=== PATIENT | male | born 1945 | race Caucasian/White ===

== ENCOUNTER 2019-12-05 15:01 | Outpatient (CLI) | payer MEDICARE, SELFPAY ==
--- NOTE | ~2019-12-05 | XR_ITS ---
EXAMINATION: XR chest 2V DATE: 12/05/2019 15:24 INDICATION: Cough. Hypertension. Asbestos exposure. TECHNIQUE: PA and lateral views of the chest were obtained. COMPARISON: Chest radiograph dated 05/24/[address] dated 04/01/2016 FINDINGS: Hyperexpansion of the lungs with increased lucency and architectural distortion of the upper lung zon es consistent with moderate emphysema better appreciated on prior CT. Opacities at the anterolateral left lower lung zone with blunting at the left costophrenic angle which appears to correspond to pleu ral parenchymal scarring on prior CT. No other airspace opacities, pulmonary edema, pleural effusion or pneumothorax. The cardiomediastinal silhouette is normal. Left paracardial fat pad. Median sternot alicja wires and mediastinal surgical clips are seen, likely from prior coronary artery bypass grafting. Aortic valve repair. Retained epicardial pacemaker leads. Mild thoracic spondylosis. IMPRESSION: 1. Opacities at the anterolateral left lower lung zone which appear to correspond to chronic pleural parenchymal scarring. Differential would include less likely pneumonia. 2. Emphysema. Reviewed, dictated and finalized at location B. IMPRESSION: 1. Opacities at the anterolateral left lower lung zone which appear to correspo nd to chronic pleural parenchymal scarring. Differential would include less lik dequan pneumonia. 2. Emphysema.
== END 2019-12-05 15:02 | disposition home or self-care (01) ==
PROVIDERS: PCP Internal Medicine; Visit Provider Internal Medicine
DX: R05 Cough (principal); Z77.090 Contact with and (suspected) exposure to asbestos; J43.9 Emphysema, unspecified
CPT/HCPCS: 71046

== ENCOUNTER 2020-10-23 12:27 | Outpatient (CLI) | payer MEDICARE, SELFPAY ==
--- NOTE | 2020-10-23 14:26 | WPDPFTINT ---
PFT Procedure Performed PFT Procedure Performed Plethysmography (Lung Vol) Diffusing Cap (DLCO) Flow Vol Loop Spirometry w/o Bronchodil PFT Interpretation This is a pulmonary function test with spirometry, plethysmography and diffusing capacity. The test was performed and results interpreted in accordance with the 2019 and 2005 ATS/ERS Task Force guidelines respectively using the Global Lung Function Initiative-2012 reference equations. Patient demonstrated good effort and cooperation. Reproducibility criteria were met. The quality of the spirometry maneuver was Grade A. Findings: Spirometry: There is decreased maximal expiratory airflow at all lung volumes with concave expiratory flow tracing. The contour the inspiratory flow tracing is normal. The FVC is 3.99 L, 85% predicted. The FEV1 is 1.31 L, 38% predicted. The FEV1: FVC ratio is 33%. Plethysmography: The total lung capacity is 8.62 L, 110% predicted. The functional residual capacity is 6.62 L, 156% predicted. The residual volume is 4.63 L, 168% predicted. Diffusing capacity: The absolute diffusion capacity is 11.9, 44% predicted. The diffusing capacity corrected for alveolar volume is 2.27, 63% predicted. Impression: There is a severe obstructive abnormality. The increase in residual volume is consistent with air trapping from an obstructive abnormality. Hyperinflation is present is demonstrated by the increase in functional residual capacity and is consistent with an obstructive abnormality. The absolute diffusing capacity is moderately decreased and remains mildly decreased when corrected for alveolar volume. There are no prior studies for comparison
== END 2020-10-23 12:28 | disposition home or self-care (01) ==
PROVIDERS: PCP Internal Medicine; Visit Provider Internal Medicine
DX: J44.9 Chronic obstructive pulmonary disease, unspecified (principal); R94.2 Abnormal results of pulmonary function studies; R91.8 Other nonspecific abnormal finding of lung field
CPT/HCPCS: 94375; 94726; 94729

== ENCOUNTER 2021-06-24 10:32 | Outpatient (CLI) | payer MEDICARE, SELFPAY ==
[2021-06-24 11:21] LABS: Basophils Absolute Auto 0.1 K/mm3 (0.0-0.1); Eosinophils Absolute Auto 0.2 K/mm3 (0-0.3); Eosinophils Percent Auto 1.9 % (0-4.4); Hematocrit 39.7 % (42.0-52.0); Hemoglobin 12.7 g/dL (14.0-18.0); Immature Granulocyte Absolute 0.13 K/mm3 (0.00-0.031); Immature Granulocyte Percent A 1.4 % (0-0.5); Lymphocytes Absolute Auto 1.31 K/mm3 (0.9-3.2); Mean Corpuscular Hemoglobin 26.2 pg (26-34); Mean Corpuscular Volume 81.9 fl (80-100); Mean Platelet Volume 9.6 fl (7.4-10.4); Monocytes Absolute Auto 0.7 K/mm3 (0.1-0.6); Monocytes Percent Auto 7.6 % (2.6-8.5); Neutrophils Absolute Auto 6.9 K/mm3 (1.3-6.7); Neutrophils Percent Auto 74.1 % (45.5-73.1); Platelet Count Result 343 k/mm3 (150-375); Red Blood Count 4.85 M/mm3 (4.6-6.20); Red Cell Distribution Width 15.9 % (11.5-14.5); White Blood Count 9.3 K/mm3 (4.5-10.0)
[2021-06-24 11:24] LABS: Alanine Aminotransferase 18 U/L (4-50); Albumin Level 3.8 g/dL (3.5-5.1); Alkaline Phosphatase 111 U/L (38-126); Anion Gap 6 mmol/L (8-16); Aspartate Amino Transferase 21 U/L (17-59); Bilirubin,Total 0.5 mg/dL (0.2-1.3); Blood Urea Nitrogen 21 mg/dL (9-20); Calcium 8.7 mg/dL (8.4-10.2); Carbon Dioxide 27 mmol/L (22-30); Chloride 108 mmol/L (98-107); Cholesterol 94 mg/dL (0-200); Estimated Glomerular Filt Rate > 60; Glucose 66 mg/dL (65-110); HDL Direct 42 mg/dL; Potassium 4.7 mmol/L (3.4-5.0); Sodium 141 mmol/L (137-145); Triglycerides 41 mg/dL (<150)
[2021-06-24 11:25] LABS: Hemoglobin A1C 6.3 % (<5.7)
[2021-06-24 11:36] LABS: LDL Cholesterol Direct 32 mg/dL
[2021-06-24 11:56] LABS: Iron 58 ug/dL (49-181)
[2021-06-24 12:00] LABS: Vitamin D 25 Hydroxy 56.3 ng/mL
[2021-06-24 12:02] LABS: Percent Iron Saturation 18 % (20-50)
[2021-06-24 12:07] LABS: Creatinine Urine 119.7 mg/dL
[2021-06-24 12:09] LABS: Free T4 Free Thyroxine 1.26 ng/mL (0.78-2.19)
[2021-06-24 12:11] LABS: MALB Creatinine Ratio 12.4 mg/g (0-30); Microalbumin Urine Random 14.9 mg/L (0-16.7)
== END 2021-06-24 10:33 | disposition home or self-care (01) ==
LOC: ANHLAB 10:38
PROVIDERS: PCP Internal Medicine; Visit Provider Internal Medicine
DX: I10 Essential (primary) hypertension (principal); D64.9 Anemia, unspecified; E11.9 Type 2 diabetes mellitus without complications; Z79.4 Long term (current) use of insulin; E78.2 Mixed hyperlipidemia; Z79.899 Other long term (current) drug therapy; E55.9 Vitamin D deficiency, unspecified
CPT/HCPCS: 36415; 80053; 80061; 82043; 82306; 82728; 83036; 83540; 83550; 84439; 84443; 85025

== ENCOUNTER 2022-06-02 13:46 | Outpatient (CLI) | payer MEDICARE, SELFPAY ==
--- NOTE | ~2022-06-02 | XR_ITS ---
XR chest 2V 06/02/2022 14:04 Indication: Cough Procedure: 2 view chest Comparison: Comparison to multiple prior studies sequentially, with oldest reviewed study dated 04/11. Findings: Status post median sternotomy for CABG. Heart size normal. There is a prosthetic heart valv e. There is patchy consolidation of the left mid and lower lung, suspicious for pneumonia. No signifi cant effusion or pneumothorax. No acute osseous abnormality. Impression: 1: Patchy infiltrates of the left mid and lower lung, suspicious for pneumonia. Reviewed, dictated and finalized at location L. Impression: 1: Patchy infiltrates of the left mid and lower lung, suspicious for pneumonia.
[2022-06-02 15:17] LABS: Influenza A QL RT-PCR Negative (Negative); Influenza B QL RT-PCR Negative (Negative); SARS-CoV-2 RNA PCR Negative
== END 2022-06-02 13:47 | disposition home or self-care (01) ==
PROVIDERS: PCP Internal Medicine; Visit Provider Internal Medicine
DX: R05.9 Cough, unspecified (principal); R91.8 Other nonspecific abnormal finding of lung field; Z20.822 Contact with and (suspected) exposure to COVID-19
CPT/HCPCS: 71046; 87636

== ENCOUNTER 2022-06-06 13:25 | Outpatient (CLI) | payer MEDICARE, SELFPAY ==
--- NOTE | ~2022-06-06 | XR_ITS ---
XR chest 2V 06/06/2022 13:40 Indication: Cough. Hypertension. CVA. Procedure: PA and lateral views of the chest Comparison: Comparison to multiple prior studies sequentially, with oldest reviewed study dated 11/09. Findings: Status post median sternotomy for CABG. Heart size normal. The lungs are hyperinflated whic h is consistent with, but not diagnostic of chronic obstructive pulmonary disease. Left basilar infil trates which may represent atelectasis and/or pneumonia. The lungs are hyperinflated which is consist ent with, but not diagnostic of chronic obstructive pulmonary disease. There are epicardial pacing le ads. Impression: 1: Unchanged left basilar infiltrates which may represent atelectasis and/or pneumonia. Reviewed, dictated and finalized at location A. Impression: 1: Unchanged left basilar infiltrates which may represent atelectasis and/or pn eumonia.
== END 2022-06-06 13:26 | disposition home or self-care (01) ==
PROVIDERS: PCP Internal Medicine; Visit Provider Internal Medicine
DX: R05.9 Cough, unspecified (principal); J18.9 Pneumonia, unspecified organism; R91.8 Other nonspecific abnormal finding of lung field
CPT/HCPCS: 71046

== ENCOUNTER 2023-01-10 11:18 | Outpatient (CLI) | payer MEDICARE, SELFPAY ==
--- NOTE | ~2023-01-10 | XR_ITS ---
EXAMINATION: XR chest 2V DATE: 01/10/2023 11:44 INDICATION: Acute upper respiratory infection. Cough. TECHNIQUE: Frontal and lateral views of the chest were obtained. COMPARISON: Chest 2 views 06/06/2022, chest CT 04/01/2016 FINDINGS: The lungs are hyperexpanded, consistent with emphysema. There is mild scarring at the lung apices. There is mild scarring in left lower lung zone. No pleural effusion or pneumothorax. The hear t size is normal. There are changes of aortic valve replacement and coronary artery bypass grafting. IMPRESSION: 1. Emphysema. 2. Stable mild scarring at the lung apices and in the left lower lung zone. Reviewed, dictated and finalized at location E. [employer]
[2023-01-10 12:01] LABS: Basophils Absolute Auto 0.1 K/mm3 (0.0-0.1); Basophils Percent Auto 0.9 % (0.2-1.2); Eosinophils Absolute Auto 0.4 K/mm3 (0-0.3); Eosinophils Percent Auto 3.2 % (0-4.4); Hematocrit 43.9 % (42.0-52.0); Hemoglobin 13.3 g/dL (14.0-18.0); Immature Granulocyte Absolute 0.03 K/mm3 (0.00-0.031); Immature Granulocyte Percent A 0.3 % (0-0.5); Lymphocytes Absolute Auto 1.23 K/mm3 (0.9-3.2); Lymphocytes Percent Auto 10.8 % (18.3-44.2); Mean Corpuscular HGB Conc 30.3 g/dl (32-36); Mean Corpuscular Hemoglobin 25.4 pg (26-34); Mean Corpuscular Volume 83.9 fl (80-100); Mean Platelet Volume 9.4 fl (7.4-10.4); Monocytes Absolute Auto 0.8 K/mm3 (0.1-0.6); Monocytes Percent Auto 6.9 % (2.6-8.5); Neutrophils Absolute Auto 8.9 K/mm3 (1.3-6.7); Neutrophils Percent Auto 77.9 % (45.5-73.1); Platelet Count Result 356 k/mm3 (150-375); Red Blood Count 5.23 M/mm3 (4.6-6.20); Red Cell Distribution Width 15.9 % (11.5-14.5); White Blood Count 11.4 K/mm3 (4.5-10.0)
[2023-01-10 12:37] LABS: SARS-CoV-2 RNA PCR Negative (Negative)
== END 2023-01-10 11:19 | disposition home or self-care (01) ==
PROVIDERS: PCP Internal Medicine; Visit Provider Internal Medicine
DX: J06.9 Acute upper respiratory infection, unspecified (principal); R68.89 Other general symptoms and signs; R53.83 Other fatigue; R06.2 Wheezing; R05.9 Cough, unspecified; J43.9 Emphysema, unspecified; R91.8 Other nonspecific abnormal finding of lung field
CPT/HCPCS: 36415; 71046; 85025; 87635

== ENCOUNTER 2023-07-19 14:49 | Outpatient (CLI) | payer MEDICARE, SELFPAY ==
--- NOTE | ~2023-07-19 | US_ITS ---
EXAMINATION: US carotid duplex BI DATE: 07/19/2023 15:35 INDICATION: Vascular symptoms. TECHNIQUE: Grayscale, color Doppler, and pulsed Doppler images of the cervical carotid arteries were obtained. The degree of vessel stenosis is placed in one of the following categories: normal, <50%, 5 0-69%, >=70% but less than near-occlusion, near-occlusion, or total occlusion. Note that percent sten osis relative to normal distal artery lumen diameter is indirectly measured from velocity measurement s as described by Shaheen, et al. Radiology 2003; 229:340-346. Notes: Normal: Peak systolic velocity <125 centimeters/sec and no plaque <50%. Peak systolic velocity <125 ( EDV <40; ICA/CCA PSV ratio <2.0; used these factors only a tandem lesions or low cardiac output or co ntralateral disease) 50-69 %: PSV 125-230 (EDV 40-100; ratio 2-4) >= 70% but less than near occlusion: PSV greater than 230 (EDV > 100; ratio> 4.0) Near Occlusion: PSV that is variable; markedly narrowed lumen Occlusion: Absent flow on color/spectral Doppler and no lumen on casillas scale. COMPARISON: None. FINDINGS: RIGHT: The right common carotid artery (CCA) peak systolic velocity (PSV) is 57 cm/s. The right internal car otid artery (ICA) PSV is 108 cm/s. The right ICA end-diastolic velocity (EDV) is 22 cm/s. The right I CA/CCA PSV ratio is 1.9 external carotid artery (ECA) PSV is 77 cm/s. There is antegrade flow in the right vertebral artery. LEFT: The left CCA PSV is 82 cm/s. The left ICA PSV is 71 cm/s. The left ICA EDV is 18 cm/s. The left ICA/C CA PSV ratio is 0.9. The ECA PSV is 92 cm/s. There is antegrade flow in the left vertebral artery. IMPRESSION: 1. Less than 50% stenosis in the right internal carotid artery by sonographic criteria. 2. Less than 50% stenosis in the left internal carotid artery by sonographic criteria. Reviewed, dictated and finalized at location B. IMPRESSION: 1. Less than 50% stenosis in the right internal carotid artery by sonographic gris sullivan. 2. Less than 50% stenosis in the left internal carotid artery by sonographic nilay garcia.
== END 2023-07-19 14:50 | disposition home or self-care (01) ==
LOC: ANHIMG 14:54
PROVIDERS: PCP Internal Medicine; Visit Provider Internal Medicine
DX: I65.23 Occlusion and stenosis of bilateral carotid arteries (principal); R09.89 Other specified symptoms and signs involving the circulatory and respiratory systems
CPT/HCPCS: 93880

== ENCOUNTER 2024-08-08 01:25 | Day surgery (SDC) | payer MEDICARE, SELFPAY ==
[2024-08-02 14:30] VITALS: BMI 20.5
--- NOTE | 2024-08-05 11:01 | PC.NURSE ---
LATE ENTRY 08/02/2024- Spoke with daughter Carol a couple times today, she reviewed his health history and asked me to call pt to confirm his med. list. When calling pt about medlist he seemed confused stated (he had been napping)about what I was asking and stated to talk to his daughter. I called him again a little later as he was more clear about what meds he takes but did not want to review the list. We did discuss that he would need to hold his Eliquis starting on the and that if he is on iron (is on medlist from DR. ROBERTS office) he would need to not take it anymore. I called daughter Carol and let her know of the conversation and she will make sure stops his Eliquis and Iron if he is taking it. I emailed her his instructions for prep as he stated he did not have them. She states she will make sure he has what he needs.
[2024-08-08 10:08] VITALS: BP 110/61; PULSE 71; RESP 16; TEMP 36.6; O2SAT 98; BMI 19.8
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
[2024-08-08 10:41] LABS: Glucose Point of Care 81 mg/dl (65-105)
[2024-08-08] MEDS: LACTATED RINGERS 1,000 ML 150 ML IV CONT (10:43)
[2024-08-08] MEDS: AMPICILLIN 2 GM/NS 100 ML 2 GM/100 ML BAG IVPB (10:45)
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
[2024-08-08] MEDS: BENZOCAINE (*SP) 60 ML SPRAY CAN (HURRICAINE) 1 SPRAY MUCOUS MEM (11:04)
--- NOTE | 2024-08-08 11:08 | S_PTH ---
PATIENT: Omega Rao Jr. LOC: [facility]#:[id number] AGE/SX: 78/M ROOM: RE08/08/[address]: Martin Plaza MD : 1945 BED: DIS: 08/08/2024 SPEC #: [id number] RECD: 08/08/24 13:00 STATUS: ALDA CANCINO #: [id number] JOSELO: 08/08/24 11:[address]: Martin Plaza DEPT: [facility] Surgical RECD BY: Portia Phillips ENTERED: 08/08/24 13:00 SP TYPE: Surgical OTHR DR: Tone Caicedo MD Tissues: A - Small Bowel Bx B - Gastric Biopsy C - Colon Biopsy D - Colon Polypectomy E - Colon Polypectomy Procedures: Hematoxylin and Eosin Stain Gross and Microscopic Level 4
--- NOTE | 2024-08-08 11:12 | SUR.OPER ---
EGD: ended 1107, COLON: started 1111
[2024-08-08 11:33] VITALS: BP 92/44; PULSE 56; RESP 21; O2SAT 100
[2024-08-08] MEDS: GENTAMICIN 80MG/SOD CHL 50 ML 80 MG/50 ML BAG 100 MG IVPB (11:37)
[2024-08-08 11:43] VITALS: BP 134/42; PULSE 60; RESP 20; O2SAT 100
[2024-08-08 11:53] VITALS: BP 155/54; PULSE 60; RESP 17; O2SAT 100
--- NOTE | 2024-08-08 12:23 | SUR.PHASEII ---
Initial glucose in recovery was 64. Patient given apple juice. Recheck 10 minutes after was 61. Patient given an additional apple juice and ko crackers. Repeat glucose 84. Patient asymptomatic.
[2024-08-08 14:16] LABS: Glucose Point of Care 83 mg/dl (65-105)
[2024-08-08 14:16] LABS: Glucose Point of Care 65 mg/dl (65-105)
[2024-08-08 14:16] LABS: Glucose Point of Care 62 mg/dl (65-105)
[2024-08-08 14:16] LABS: Glucose Point of Care 64 mg/dl (65-105)
== END 2024-08-08 12:25 | disposition home or self-care (01) ==
PROVIDERS: PCP Internal Medicine; Referring Provider Nurse Practitioner; Visit Provider Internal Medicine Gastroenterology
PROC: 0DJ08ZZ Inspection of Upper Intestinal Tract, Via Natural or Artificial Opening Endoscopic (ICD-10-PCS; CPT 45378; principal; 2024-08-08 11:30)
DX: R19.7 Diarrhea, unspecified (principal); D64.9 Anemia, unspecified; D12.2 Benign neoplasm of ascending colon; D12.3 Benign neoplasm of transverse colon; K57.30 Diverticulosis of large intestine without perforation or abscess without bleeding; K64.8 Other hemorrhoids; K44.9 Diaphragmatic hernia without obstruction or gangrene; K29.70 Gastritis, unspecified, without bleeding; K57.10 Diverticulosis of small intestine without perforation or abscess without bleeding; Z80.0 Family history of malignant neoplasm of digestive organs; F12.90 Cannabis use, unspecified, uncomplicated
CPT/HCPCS: 45380; 45385; 43239; 82948; 88305; J0290; J1580; J2003; J2371; J2704; J7120

== ENCOUNTER 2024-11-14 07:43 | Outpatient (CLI) | payer MEDICARE, SELFPAY ==
--- OUTSIDE RECORDS SUMMARY | 2024-11-14 07:46 | XMS_ITS | Encounter Summary ---
Author Organization [facility] Address [address] [place] [address] Phone Care Team Providers Care Topper Press Operator Name Role Phone Tone Caicedo MD Primary Care Provider [phone] Unknown, Notinfile Primary Care Provider Unavail able Tone Caicedo MD Primary Care Provider [phone] Tone Caicedo MD Unavailable [phone] Encounter Details Date Type Department Care Team (Latest Contact Info) Description 06/24/2021 Orders Only [facility] Scanning, Provider Social History Tobacco Use Types Packs/Day Years Used Date Smoking Tobacco: Former Cigarettes 2014 Smokeless Tobacco: Never Alcohol Use Standard Drinks/Week Comments No 0 (1 standard drink = 0.6 oz pur e alcohol) AUDIT-C Answer Date Recorded Q1: How often do you have a drink containing alc ohol? 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 SET UP Gender Identity Not on file Sexual Orientation Not on file documented as of this encounter Plan of Treatment Not on file documented as of this encounter Procedures Procedure Name Priority Date/Time Associated Diagnosis Comments SCAN - LABS 06/24/2021 documented in this encounter Results * SCAN - LABS (06/24/2021) us Provider Scanning Final Result documented in this encounter Visit Diagnoses Not on filedocumented in this encounter Additional Health Concerns Infection Onset Date Last Indicated Resolved Time COVID: Suspected 02/17/2024 02/17/2024 02/17/2024 12:52 PM MACHINIST SET UP COVID: Suspected 02/21/2024 02/21/2024 02/21/2024 1:26 PM MACHINIST SET UP C. difficile suspected 02/22/2024 02/22/202402/21 2:37 PM MACHINIST SET UP COVID: Suspected 10/26/2024 10/26/2024 10/26/2024 3:26 PM CDT documented as of this encounter Care Teams Topper Press Operator Relationship Specialty Start Date End Date Tone Caicedo MD [address] [place] [address] PCP - General 05/04/16 02/18/24 Unknown, Notinfile PCP - General 02/19/24 02/21/24 Tone Caicedo MD [address] [place] [address] PCP - General Internal Medicine 02/22/24 Tone Caicedo MD [address] [place] [address] 02/19/24 documented as of this encounter
--- OUTSIDE RECORDS SUMMARY | 2024-11-14 07:47 | XMS_ITS | Encounter Summary ---
Author Organization [facility] Address [address] [facility] [address] [place] [address] Phone Care Team Providers Care Metal Furnace Operator Name Role Phone Tone Caicedo MD Primary Care Provider [phone] Unknown, Notinfile Primary Care Provider Unavail able Tone Caicedo MD Primary Care Provider [phone] Tone Caicedo MD Unavailable [phone] Star Tam [facility] Unavailable Encounter Details Date Type Department Care Team (Late st Contact Info) Description 08/28/2017 Telephone [facility] Cardiology [address] [facility] Advanced [facility] 8th [place] [address] [place] [address] Morgan Busby MD [address] [facility] [address] [place] [address] Social History Tobacco Use Types Packs/Day Years Used Date Smoking Tobacco: Former Smokeless Tobacco: Never Alcohol Use Standard Drinks/Week Comments No 0 (1 standard drink = 0.6 oz pur e alcohol) Sex and Gender Information Value Date Recorded Sex Assigned at Not on file 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 difficile Comment:Germ watcher auto flagging. Specimen: STOOL Site: No diarrhea per pt RN. 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 difficile suspected 02/22/2024 02/22/202402/21 2:37 PM GREEN MEAT GRADER COVID: Suspected 10/26/2024 10/26/2024 10/26/2024 3:26 PM CDT documented as of this encounter Care Teams Metal Furnace Operator Relationship Specialty Start Date End Date Tone Caicedo MD [address] [place] [address] PCP - General 05/04/16 02/18/24 Unknown, Notinfile PCP - General 02/19/24 02/21/24 Tone Caicedo MD [address] [place] [address] PCP - General Internal Medicine 02/22/24 Tone Caicedo MD [address] [place] [address] 02/19/24 Star Tam, [facility] Outpatient Project Accountant 02/26/18 04/30/18 documented as of this encounter
--- OUTSIDE RECORDS SUMMARY | 2024-11-14 07:47 | XMS_ITS | Encounter Summary ---
Author Organization [facility] Address [address] [place] [address] Phone Care Team Providers Care Name Plate Stamper Name Role Phone Tone Caicedo MD Primary Care Provider [phone] Unknown, Notinfile Primary Care Provider Unavail able Tone Caicedo MD Primary Care Provider [phone] Tone Caicedo MD Unavailable [phone] Star Tam [facility] Unavailable Encounter Details Date Type Department Care Team (Latest Contact Info) Description 03/22/2017 Orders Only [facility] CONVERSION Scanning, Provider Social History Tobacco Use Types Packs/Day Years Used Date Smoking Tobacco: Never Assessed Alcohol Use Standard Drinks/Week Comments No 0 (1 standard drink = 0.6 oz pur e alcohol) Sex and Gender Information Value Date Recorded Sex Assigned at Not on file 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 Gender Identity Not on file Sexual Orientation Not on file documented as of this encounter Plan of Treatment Not on file documented as of this encounter Procedures Procedure Name Priority Date/Time Associated Diagnosis Comments VASCULAR LABORATORY REPORT 03/22/2017 8:26 AM STATION INSTALLER AND REPAIRER documented in this encounter Results * VASCULAR LABORATORY REPORT (03/22/2017 8:26 AM STATION INSTALLER AND REPAIRER) Anatomical Region Laterality Modality Ultrasound us Provider Scanning CV VASCULAR PROCEDURES Final R esult documented in this encounter Visit Diagnoses Not on filedocumented in this encounter Additional Health Concerns Infection Onset Date Last Indicated Resolved Time C. difficile Comment:Germ watcher auto flagging. Specimen: STOOL Site: No diarrhea per pt RN. 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 difficile suspected 02/22/2024 02/22/202402/21 2:37 PM STATION INSTALLER AND REPAIRER COVID: Suspected 10/26/2024 10/26/2024 10/26/2024 3:26 PM CDT documented as of this encounter Care Teams Name Plate Stamper Relationship Specialty Start Date End Date Tone Caicedo MD [address] [facility] [address] [facility] [address] [place] [address] PCP - General 05/04/16 02/18/24 Unknown, Notinfile PCP - General 02/19/24 02/21/24 Tone Caicedo MD [address] [facility] [address] [facility] [address] [place] [address] PCP - General Internal Medicine 02/22/24 Tone Caicedo MD [address] [facility] [address] [facility] [address] [place] [address] 02/19/24 Star Tam, [facility] Outpatient Dowel Inspector 02/26/18 04/30/18 documented as of this encounter
--- OUTSIDE RECORDS SUMMARY | 2024-11-14 07:47 | XMS_ITS | Clinical Summary ---
Author Organization [facility] Virtual Care Address [address] [place] [id number] Phone Care Team Providers Care Hand Silvering Supervisor Name Role Phone Tone Caicedo MD Primary Care Provider [phone] Tone Caicedo MD Unavailable [phone] Allergies Active Allergy Reactions Criticality Noted Date Comments Lisinopril Swelling Medium Rosuvastatin Swelling Medium Medications apixaban (ELIQUIS) 5 mg tablet Take 1 tablet (5 mg total) by mouth 2 (two) times a day. 84 tablet 08/26/19 18 Active multivitamin capsule Take 1 capsule by mouth daily Active FERROUS GLUCONATE ORAL Take by mouth. Unsure med dosage bid Active albuterol (PROVENTIL,VENT TIARA) 2.5 mg /3 mL (0.083 %) nebulizer solutionIndicat ions:Chronic Obstructive Pulmonary Disease,may use instead of albuterol inhaler Take 3 mL (2.5 mg total) by nebulization every 4 (four) hours as needed for wheezing or shortness of breath. 75 mL 11 02/21/19 19 Active albuterol HFA (PROAIR HFA) 90 mcg/actuation inhalerIndicati ons:Chronic Obstructive Pulmonary Disease,shortne ss of breath Inhale 2 puffs 4 (four) times a day. 1 Inhaler 03/02/19 19 Active insulin lispro (HumaLOG) 100 unit/mL injectionIndica tions:Diabetes Mellitus Inject 5 Units under the skin 3 (three) times a day with meals. 4.5 mL 03/02/19 19 030 Active Additional Information Patient not taking.Reported on 10/26/2024 metFORMIN (GLUCOPHAGE) 1,000 mg tablet Take 1 tablet (1,000 mg total) by mouth 2 (two) times a day with meals Active famotidine (PEPCID) 40 mg tablet Take 1 tablet (40 mg total) by mouth daily Active NIFEdipine CC 90 mg 24 hr tablet TAKE 1 TABLET BY MOUTH DAILY 90 tablet 3 11/29/19 23 Active empagliflozin (JARDIANCE) 10 mg tablet 1 tablet (10 mg total) Active ondansetron (ZOFRAN) 4 mg tablet Take 1 tablet (4 mg total) by mouth every 6 (six) hours 12 tablet 02/17/20 24 Active atorvastatin (LIPITOR) 10 mg tablet Take 1 tablet (10 mg total) by mouth daily Active insulin glargine 100 unit/mL vial for injection Inject 20 Units under the skin nightly Active famotidine (PEPCID) 40 mg tablet Take 1 tablet (40 mg total) by mouth daily Active acetaminophen (TYLENOL) 325 mg tabletIndicatio ns:Pain Take 2 tablets (650 mg total) by mouth every 6 (six) hours as needed for pain 02/25/19 25 Active albuterol HFA (PROVENTIL HFA,VENTOLIN HFA,PROAIR HFA) 90 mcg/actuation inhaler Inhale 2 puffs every 4 (four) hours as needed for wheezing 02/25/19 25 Active bacitracin 500 unit/gram ointment Apply topically 2 (two) times a day To head and arm abrasions 02/25/19 25 Active tamsulosin (FLOMAX) 0.4 mg extended release capsule Take 1 capsule (0.4 mg total) by mouth daily with dinner 02/25/19 25 Active irbesartan (AVAPRO) 150 mg tablet TAKE 1 TABLET BY MOUTH TWICE DAILY 180 tablet 3 07/09/19 25 Active fluticasone-ume clidin-vilanter (Trelegy Ellipta) 100-62.5-25 mcg inhaler Inhale 1 puff daily 1 each 07/26/19 25 Active aspirin 81 mg enteric coated tablet Take 1 tablet (81 mg total) by mouth daily Active atorvastatin (LIPITOR) 10 mg tablet Take 0.5 tablets (5 mg total) by mouth every other day Discontinu ed(Therapy completed) insulin glargine (LANTUS) 100 unit/mL injectionIndica tions:Diabetes Mellitus Inject 22 Units under the skin every morning. 6.6 mL 03/03/19 19 025 Discontinu ed(Alterna te therapy) polyethylene glycol (GoLYTELY) 236-22.74-6.74 -5.86 gram solution Use as directed. 4000 mL 08/21/19 21 Discontinu ed(Therapy completed) irbesartan (AVAPRO) 150 mg tablet Take 1 tablet (150 mg total) by mouth 2 (two) times a day 02/25/19 025 Discontinu ed(Alterna te therapy) levoFLOXacin (LEVAQUIN) 750 mg tablet Take 1 tablet (750 mg total) by mouth daily for 7 days 7 tablet 11/03/19 Active Problems Problem Noted Date Diagnosed Date Moderate protein-calorie malnutrition 10/28/2024 Bilious vomiting with nausea 10/26/2024 Urinary retention 02/26/2024 Assessment & Plan (02/27/2024 8:47 AM DIESEL PLANT OPERATOR): - 02/25 straight cath 400ml due to high PVR. Continue high PVRs throughout day. Patient initially refusing catheter, now agreeable - Void trial in 3-5 days at rehab facility - Flomax Pneumonia 02/25/2024 Assessment & Plan (02/27/2024 8:47 AM DIESEL PLANT OPERATOR): SEE LEUKOCYTOSIS - CT CAP 02/22 with multifocal consolidation in the L>R lung base c/w pneumonia and slightly worse from prior imaging. Small volume loculated fluid in the L major fissure Antibiotics Zosyn (02/22 - 02/24) - 10 doses Augmentin (02/25- 03/03)- 7 days Encounter for medication review 02/22/2024 Assessment & Plan (02/22/2024 11:30 AM DIESEL PLANT OPERATOR): Dispense report reviewed, home medications discussed with patient and daughter and updated in ADMISSIONS tab H/O: stroke 02/22/2024 Assessment & Plan (02/22/2024 11:34 AM DIESEL PLANT OPERATOR): Home regimen: statin (continued), ASA (held) Cerebrovascular accident, first in April 2017 affecting left basal ganglion and then again in May 2017 affecting the right christy with right-sided weakness and dysarthria as his predominant symptoms, now with minimal residua except for difficulty swallowing and no recurrent symptoms. 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) Leukocytosis 02/21/2024 Assessment & Plan (02/26/2024 3:03 PM DIESEL PLANT OPERATOR): - WBC trend: 12.2- 15.9 - UA (02/19): negative - RVP (02/20): negative - Monitor WBC, consider treatment for COPD exacerbation if worsening leukocytosis 1/ wbc 15.9 from 15.9, Tmax 99.9F/24h, c/o diarrhea, bowel regimen held and cdiff specimen sent: negative, PRN imodium ordered 02/22 wbc 17.6 from 15.9, afebrile, diarrhea resolved, non-productive cough, skin check negative for new wound, L periorbital hematoma without e/o infection, BLE duplex r/o dvt: negative, c/o dysuria and endorses recent sexual activity - G/C testing negative 02/24 WBC 15.6 (14.9), afebrile - No active symptoms of infection at discharge, tolerating room air, no signs of erythema or foul drainage from scalp wound, leukocytosis work up negative with blood cultures 02/22 no growth to date Dysuria 02/21/2024 Assessment & Plan (02/26/2024 3:06 PM DIESEL PLANT OPERATOR): - 02/20: reported discomfort with urinating, small void volumes, UA on 02/19 negative - Family reports a history of BPH, no current medications 1/3 ongoing c/o dysuria -- UA checked overnight and again negative, patient reports penile pain while urinating, exam NL and no drainage noted, +sexually active, unclear about monogamy, reports condom use, check G/C urine naat, pyridium for symptoms in meantime x2d ---> addendum: further elevated wbc, blood cultures ordered, CT A/P r/o IAI v prostatitis - abx selection discussed with ID stewardship and Bactrim started given anticipated duration of treatment if prostatitis is proven and the risk of terminal operations manager fluoroquinolone in elderly population - STD panel negative Scalp laceration 02/21/2024 Assessment & Plan (02/23/2024 12:13 PM DIESEL PLANT OPERATOR): - periorbital lac closed with vicryl sutures in ED on 02/19 Nasal bone fracture 02/21/2024 Assessment & Plan (02/21/2024 4:20 PM DIESEL PLANT OPERATOR): - Age indeterminate - No point tenderness - No intervention necessary Subarachnoid bleed 02/20/2024 Assessment & Plan (02/26/2024 5:55 AM DIESEL PLANT OPERATOR): #Trace subarachnoid hemorrhage - Neurosurgery consulted - Neuro checks q4h - SBP <160 - No keppra required - Hold Eliquis and hold ASA until follow up - BI consult, PM&R consult - Okay for DVT ppx - Follow up with NSGY (Dr Evangelista) in 2 to 4 weeks with a noncontrast head CT Hematoma 02/20/2024 Assessment & Plan (02/23/2024 12:02 PM DIESEL PLANT OPERATOR): #Scalp/periorbital hematoma - Monitor swelling - HOB elevation - 1/2 dressing c/d, no expansion or pulsatility noted, hematoma evolving - 1/3 wound c/d, hematoma evolving Hypertension 02/20/2024 Assessment & Plan (02/22/2024 11:23 AM DIESEL PLANT OPERATOR): Home regimen: irbesartan (continued) - SBP goal <160, PRN IV hydralazine if needed HLD (hyperlipidemia) 02/20/2024 Assessment & Plan (02/22/2024 11:22 AM DIESEL PLANT OPERATOR): Home regimen: atorvastatin (continued) GERD (gastroesophageal reflux disease) Assessment & Plan (02/22/2024 11:22 AM DIESEL PLANT OPERATOR): Home regimen: famotidine (continued) Diabetes mellitus 02/20/2024 Assessment & Plan (02/23/2024 12:01 PM DIESEL PLANT OPERATOR): - Home medications: insulin glargine 20 units daily - last A1c on file (in alternate chart) 2019: 7.0 - SSI, glargine while inpatient - Consistent carb diet - add on A1c to blood in lab 02/21: 6.6% CAD (coronary artery disease) 02/20/2024 Assessment & Plan (02/22/2024 11:36 AM DIESEL PLANT OPERATOR): s/p 4v CABG (2009) Home regimen: ASA (held) - 02/20: NSGY recommendations holding aspirin until outpatient follow up Paroxysmal atrial fibrillation 02/20/2024 Assessment & Plan (02/22/2024 11:24 AM DIESEL PLANT OPERATOR): Home rate control regimen: none Home anticoagulation regimen: eliquis (held) --- eliquis NOT to resume until cleared by NSGY outpatient COPD (chronic obstructive pulmonary disease) Assessment & Plan (02/22/2024 11:19 AM DIESEL PLANT OPERATOR): - Home medications: Trelegy, albuterol - Continue inhalers - Wean supplemental oxygen as tolerated --> RA 1/2 --- patient reports he was taken off of trelegy in the outpatient settings for reasons he's unable to recall, unable to identify reason on chart review, continue current medication dosing Discharge planning issues 02/20/2024 Assessment & Plan (02/28/2024 7:58 AM DIESEL PLANT OPERATOR): - 02/19: new admit, BI consult - 02/20: NSGY signed off, pending BI consult, monitoring leukocytosis - 02/21 PT recs: IPR, pending [facility] eval for BI workup, patient agreeable to IPR in [place], case management notified; barrier to discharge: leukocytosis r/o cdiff; ADD 02/22 - 02/22 barrier to discharge: leukocytosis, r/o dvt and g/c; ADD tomorrow - 02/25: WBC 15.6 (14.9), afebrile. PO antibiotics started (Augmentin). Urinary retention, straight cath x 1. Patient is medically stable for discharge, SW/CM updated. Discharge pending [facility] placement. Patient is able to discharge tomorrow pending EMS 02/26: Ready for transfer 02/27; DC to [facility] Treatment note done Confusion 02/20/2024 Assessment & Plan (02/22/2024 11:18 AM DIESEL PLANT OPERATOR): Etiology: SAH, patient's daughter reports some baseline difficulty with memory and cognitive function - 02/19 worsening confusion --- Repeat head CT with decreased SAH --- UA negative --- Delirium precautions --- recent illness with diarrhea, cough -> reported covid/flu A/flu B/RSV negative, continue to monitor - 02/20: improved mentation - 02/21 CONFUSION RESOLVED Fall down stairs, initial encounter 02/19/2024 Assessment & Plan (02/22/2024 11:22 AM DIESEL PLANT OPERATOR): Etiology: Mechanical S/P aortic valve replacement with bioprosthetic valve 11/12/2021 Other dysphagia 12/14/2018 Acute renal failure (ARF) 03/01/2018 Assessment & Plan (03/02/2018 12:23 PM DIESEL PLANT OPERATOR): Cr 0.9 On admit. Increased to 1.28 with IV diuresis. Suspect now intravascularly dry. Will hold further doses for now. Checked UA and neg for UTI. Low suspicion of infection with no fever, leukocytosis, dysuria or hematuria. Cr resolved to 1.04 Assessment & Plan (03/01/2018 1:00 PM DIESEL PLANT OPERATOR): Cr 0. On admit. Increased to 1.28 with IV diuresis. Suspect now intravascularly dry. Will hold further doses for now. Check UA r/o UTI. Low suspicion of infection with no fever, leukocytosis, dysuria or hematuria. Acute on chronic systolic heart failure 02/27/19 19 Assessment & Plan (03/02/2018 12:22 PM DIESEL PLANT OPERATOR): Mild/borderline acute sys CHF vs technically difficult study. Clinically however, JVD and rales on exam with up trending BNP treated with IV lasix and clinically improving. Follows with Dr Busby, cards consulted. Continue coreg, statin, ARB. Diuresed briskly, then has waned off with bump in Cr. Held IV diuresis with improved Cr. S/b cards and no plans for diuretics at discharge. Plan o/p follow up in cardiology clinic. Discussed updated recs with fellow. Of note, diagnosis is sensitive topic for patient's daughter, who expresses significant anxiety. Assessment & Plan (03/01/2018 12:55 PM DIESEL PLANT OPERATOR): Mild/borderline acute sys CHF vs technically difficult study. Clinically however, JVD and rales on exam with up trending BNP treated with IV lasix and clinically improving. Follows with Dr Busby, cards consulted. Continue coreg, statin, ARB. Diuresed briskly, then has waned off with bump in Cr. Await cards input, but suspect transition to orals today and o/p follow up in clinic. Discussed updated recs with fellow. Of note, diagnosis is sensitive topic for patient's daughter, who expresses significant anxiety. Assessment & Plan (02/28/2018 11:53 AM DIESEL PLANT OPERATOR): Mild/borderline acute sys CHF vs technically difficult study. JVD and rales on exam with up trending BNP treated with IV lasix and clinically improving. Follows with Dr Busby cards consulted. Continue coreg, statin, ARB. Discussed updated recs with fellow. Of note, diagnosis is sensitive topic for patient's daughter, who expresses significant anxiety. Assessment & Plan (02/27/2018 12:05 PM DIESEL PLANT OPERATOR): Mild/borderline acute sys CHF vs technically difficult study. JVD and rales on exam today with up trending BNP. Trial IV lasix and monitor for response. Follows with Dr Rich, cards consulted. Continue coreg, statin, ARB. Discussed with fellow and await staffing. Of note, diagnosis is sensitive topic for patient's daughter, who expresses significant anxiety. Acute hypoxemic respiratory failure 02/24/2018 Assessment & Plan (03/02/2018 12:20 PM DIESEL PLANT OPERATOR): Multifocal. Wheezing and new oxygen requirement of 4L per NC on admit. Alert with frequent coughing. Most likely related to COPD exacerbation and acute viral illness. Managed with frequent nebs, oral steroids and clinically slow to improve. Obtained TTE and mild systolic dysfunction with 50% LVEF and normal bioAVR valve function. Pt did not appear volume overloaded on admission, but now with new rales bilaterally and JVD. Trialed IV lasix and good response. ABG w/ PO2 78 on 4L, attempt titration with diuresis. Suspect may have had previously unrecognized O2 requirement prior to admission. Improved subjectively with diuresis. Transition to oral diuretics. PT/OT assessment rec SNF. SW eval for SNF at discharge, plan transfer today. Assessment & Plan (03/01/2018 12:49 PM DIESEL PLANT OPERATOR): Multifocal. Wheezing and new oxygen requirement of 4L per NC on admit. Alert with frequent coughing. Most likely related to COPD exacerbation and acute viral illness. Managed with frequent nebs, oral steroids and clinically slow to improve. Obtained TTE and mild systolic dysfunction with 50% LVEF and normal bioAVR valve function. Pt did not appear volume overloaded on admission, but now with new rales bilaterally and JVD. Trialed IV lasix and good response. ABG w/ PO2 78 on 4L, attempt titration with diuresis. Suspect may have had previously unrecognized O2 requirement prior to admission. Improved subjectively with diuresis. Transition to oral diuretics. PT/OT assessment rec SNF. eval for SNF at discharge, plan transfer soon. Assessment & Plan (02/28/2018 11:50 AM DIESEL PLANT OPERATOR): Wheezing and new oxygen requirement of 4L per NC on admit. Alert and frequent coughing. Most likely related to COPD exacerbation and acute viral illness. Management with nebs, steroids and monitoring progress. Obtained TTE and mild systolic dysfunction with 50% LVEF and normal bioAVR valve function. Pt did not appear volume overloaded on admission, but now with new rales bilaterally and JVD. Trialed IV lasix and good response. ABG w/ PO2 78 on 4L, titration with diuresis. Pt will need walking oxygen assessment prior to discharge given patient's readmission (ordered) and longer history of dyspnea. Suspect may have had previously unrecognized O2 requirement prior to admission. PT/OT assessment rec SNF. eval for SNF at discharge. Assessment & Plan (03/01/2018 6:05 PM DIESEL PLANT OPERATOR): Dyspnea in patient with COPD in setting of positive rhinovirus/meta-pneumovirus likely 2/2 COPD exacerbation. However not improving over previous two admissions, crackles on exam, elevated NT-proBNP, TTE w/ low-normal LVEF with mild diastolic dysfunction suggests possible left-sided congestive heart failure acutely decompensated in setting of viral illness contributing to symptoms of dyspnea - NT-proBNP 200 from 900; can stop further diuresis, none needed upon discharge - continue carvedilol 6.25mg BID, irbesartan 150mg - low sodium diet - wean oxygen as tolerated - COPD management per primary team; with mild improvement after diuresis, consider high-res chest CT Assessment & Plan (02/27/2018 11:51 AM DIESEL PLANT OPERATOR): Wheezing and new oxygen requirement of 4L per NC on admit. Alert and frequent coughing. Most likely related to COPD exacerbation and acute viral illness. Management with nebs, steroids and monitoring progress. Obtained TTE and mild systolic dysfunction with 50% LVEF and normal bioAVR valve function. Pt did not appear volume overloaded on admission, but now with new rales bilaterally and JVD. Trial IV lasix and monitor for response. Obtain ABG to assess O2 needs, titration. Pt will need walking oxygen assessment prior to discharge given patient's readmission (ordered) and longer history of dyspnea. Suspect may have had previously unrecognized O2 requirement prior to admission. PT/OT assessment. eval for [facility] vs SNF at discharge. Assessment & Plan (02/26/2018 12:44 PM DIESEL PLANT OPERATOR): Wheezing and new oxygen requirement of 4L per NC. Alert and frequent coughing. Most likely related to COPD exacerbation and acute viral illness. Management with nebs, steroids and monitoring progress. Obtain TTE to evaluate LVEF and valve function, although does not appear volume overloaded on admission. Pt will need walking oxygen assessment prior to discharge given patient's readmission and longer history of dyspnea. PT/OT assessment. Assessment & Plan (02/25/2018 2:15 PM DIESEL PLANT OPERATOR): On 4L NC currently. Most likely related to COPD exacerbation and viral illness. - Will need walking oxygen assessment prior to discharge given patient's readmission and longer history of dyspnea Assessment & Plan (02/24/2018 11:13 PM DIESEL PLANT OPERATOR): On 3L NC currently. Most likely related to COPD exacerbation. Plan as below - bnp minimally elevated, does not appear volume overloaded on exam - low suspicion for PE, already on eliquis Type 2 diabetes mellitus with hyperglycemia 02/2018 Assessment & Plan (03/02/2018 12:25 PM DIESEL PLANT OPERATOR): Well controlled as o/p with HbA1c 7 this admit On home lants 25u qAM, lispro 3u TID, metformin 500mg BID Initially dose reduced lantus and place on mdssi, adjust as needed, reviewed serial accuchecks. On Consistent carb diet and continue ARB. Advancing lantus for steroid induced hyperglycemia and monitoring response. Received NPH x1 02/28, 03/01 with improved control. Tapered prednisone off, as tolerated pulmonary-simeon. Assessment & Plan (03/01/2018 12:57 PM DIESEL PLANT OPERATOR): Well controlled as o/p with HbA1c 7 this admit On home lants 25u qAM, lispro 3u TID, metformin 500mg BID Initially dose reduced lantus and place on mdssi, adjust as needed, reviewed serial accuchecks. On Consistent carb diet and continue ARB. Advancing lantus for steroid induced hyperglycemia and monitoring response. Received NPH x1 02/28 with improved control. Tapering prednisone off, as tolerated pulmonary-simeon. Plan to resume home regimen at d/c. Assessment & Plan (02/28/2018 11:52 AM DIESEL PLANT OPERATOR): Well controlled as o/p with HbA1c 7 this admit On home lants 25u qAM, lispro 3u TID, metformin 500mg BID -Dose reduced lantus and place on mdssi, adjust as needed, reviewed serial accuchecks. -On Consistent carb diet and continue ARB. Advancing lantus for steroid induced hyperglycemia and monitor. Plan to resume home regimen at d/c. Assessment & Plan (02/27/2018 11:54 AM DIESEL PLANT OPERATOR): Well controlled as o/p with HbA1c 7 this admit On home lants 25u qAM, lispro 3u TID, metformin 500mg BID -Dose reduced lantus and place on mdssi, adjust as needed, reviewed serial accuchecks. -On Consistent carb diet and continue ARB. Plan to resume home regimen at d/c. Assessment & Plan (02/26/2018 12:56 PM DIESEL PLANT OPERATOR): Well controlled as o/p with HbA1c 7 this admit On home lants 25u qAM, lispro 3u TID, metformin 500mg BID -Dose reduced lantus and place on mdssi, adjust as needed, reviewed serial accuchecks. -On Consistent carb diet and continue ARB. Plan to resume home regimen at d/c. Assessment & Plan (02/25/2018 2:25 PM DIESEL PLANT OPERATOR): On home lants 25u qAM, lispro 3u TID, metformin 500mg BID -will dose reduce lantus and place on mdssi, adjust as needed -Consistent carb diet Assessment & Plan (02/24/2018 11:10 PM DIESEL PLANT OPERATOR): On home lants 25u qAM, lispro 3u TID, metformin 500mg BID -will dose reduce lantus and place on mdssi Assessment & Plan (02/21/2018 12:01 PM DIESEL PLANT OPERATOR): On home lants 25u qAM, lispro 3u TID, metformin 500mg BID. Inpt regimen lantus 15 qAM and lispro 3u, SSI --Resume home regimen at discharge COPD with acute exacerbation 02/20/2018 Assessment & Plan (03/02/2018 12:21 PM DIESEL PLANT OPERATOR): FEV1 50% on pft from 05/2016. Suspect current exacerbation from viral infection. Recent rvp pos for rhino/entero, and metapnuemovirus, flu neg, will check with infection control if resp isolation still needed. Clinically slowly improving on continued pred 40mg/d, scheduled nebs. Steroid treatment complicated by hyperglycemia. D/c ipratropium as patient reporting trouble voiding. Patient is noted to be on tamsulosin with hx BPH. No relief with tessalon pearles, so changed to robitussin DM. Wean O2 as tolerated. S/p z-pack 5d course thru 02/28. Repeat CXR unremarkable 02/26. Keep dry. Titrating prednisone dosing more quickly given tolerance and steroid induced hyperglycemia. D/w SW & CM and SNF arranged for discharge today. Assessment & Plan (03/01/2018 12:51 PM DIESEL PLANT OPERATOR): FEV1 50% on pft from 05/2016. Suspect current exacerbation from viral infection. Recent rvp pos for rhino/entero, and metapnuemovirus, flu neg, will check with infection control if resp isolation still needed. Clinically slowly improving on continued pred 40mg/d, scheduled nebs. Steroid treatment complicated by hyperglycemia. D/c ipratropium as patient reporting trouble voiding. Patient is noted to be on tamsulosin with hx BPH. No relief with tessalon pearles, so changed to robitussin DM. Wean O2 as tolerated. S/p z-pack 5d course thru 02/28. Repeat CXR unremarkable 02/26. Keep dry. Titrating prednisone dosing every 3 days to off. Given underlying pulmonary disease, continue slow steroid taper at d/c. D/w SW & CM and SNF arranged for discharge. Assessment & Plan (02/28/2018 11:51 AM DIESEL PLANT OPERATOR): FEV1 50% on pft from 05/2016. Suspect current exacerbation from viral infection. Recent rvp pos for rhino/entero, and metapnuemovirus, flu neg, will check with infection control if resp isolation still needed. Clinically slowly improving on continued pred 40mg/d, scheduled nebs. Steroid treatment complicated by hyperglycemia. D/c ipratropium as patient reporting trouble voiding. Patient is noted to be on tamsulosin with hx BPH. No relief with tessalon pearles, so changed to robitussin DM. Wean O2 as tolerated, but no progress. S/p z-pack 5d course ending 02/28. Repeat CXR unremarkable 02/26. Keep dry. Adjusting prednisone dosing. Given underlying pulmonary disease, may need longer steroid taper at d/c. D/w SW & CM re HHC at d/c. Assessment & Plan (02/27/2018 11:52 AM DIESEL PLANT OPERATOR): FEV1 50% on pft from 05/2016. Suspect current exacerbation from viral infection. Recent rvp pos for rhino/entero, and metapnuemovirus, flu neg, will check with infection control if resp isolation still needed. Clinically slowly improving on continued pred 40mg/d, scheduled nebs. D/c ipratropium as patient reporting trouble voiding. Patient is noted to be on tamsulosin with hx BPH. No relief with tessalon pearles, so changed to robitussin DM. Wean O2 as tolerated, but no progress. Given sputum change, started z-pack for suspected secondary bacterial infection. Plan 5d course ending 02/28. Repeat CXR unremarkable 02/26. Keep dry. Given underlying pulmonary disease, may need longer steroid taper at d/c. D/w SW & CM re HHC at d/c. Assessment & Plan (02/26/2018 12:47 PM DIESEL PLANT OPERATOR): FEV1 50% on pft from 05/2016. Suspect current exacerbation from viral infection. Recent rvp pos for rhino/entero, and metapnuemovirus, flu neg, will check with infection control if resp isolation still needed. Clinically slowly improving on continued pred 40mg/d, scheduled nebs. D/c ipratropium as patient reporting trouble voiding. Patient is noted to be on tamsulosin with hx BPH. No relief with tessalon pearles. Change to robitussin DM. Wean O2 as tolerated. Given sputum change, started z-pack for suspected secondary bacterial infection. Plan 5d course. Given underlying pulmonary disease, may need longer steroid taper at d/c. D/w SW & CM re HHC at d/c. Assessment & Plan (02/25/2018 2:24 PM DIESEL PLANT OPERATOR): FEV1 50% on pft from 05/2016. Suspect current exacerbation from viral infection. recent rvp pos for rhino/entero, and metapnuemovirus, flu neg - cont pred 40 may need longer taper, scheduled nebs. -d/c ipratropium as patient reporting trouble voiding this morning. Patient is noted to be on tamsulosin -Wean O2 as tolerated. Given sputum change will give z-pack. Assessment & Plan (02/24/2018 11:19 PM DIESEL PLANT OPERATOR): - FEV1 50% on pft from 05/2016 - suspect current exacerbation from viral infection. recent rvp pos for rhino, entero, and metapnuemovirus - will check flu swab - cont pred 40 may need longer taper, scheduled nebs. Wean O2 as tolerated. Given sputum change will give z-pack. Assessment & Plan (02/21/2018 12:01 PM DIESEL PLANT OPERATOR): COPD, quit smoking 3 years ago (05/2016 PFT 1/C 45, FEV1 50%, no home O2, no previous known exacerbation. Presenting with 3 weeks of progressive dyspnea, acutely worsening over 2 days, productive sputum (green/brown). Daughter Carol endorses sick contact of her son some weeks ago. Did not receive flu vaccine. In ED: reportedly desatting to mid 80s while coughing, weaned from 5L to room air. WBC 10, CXR w/o focal consolidation. RVP positive for rhinovirus and metapneumovirus. 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 Repeat TTE with good function of valve. Outpatient f/u as planned. Continue asa, statin, coreg, & ARB. Repeat TTE with mild , MS. Volume improved s/p gentle diuresis. No plans for diuretics at discharge. Assessment & Plan (03/01/2018 12:55 PM DIESEL PLANT OPERATOR): Aortic stenosis s/p bioprosthetic AVR complicated by endocarditis requiring repeat surgery 2017. Repeat TTE with good function of valve. Outpatient f/u as planned. Continue asa, statin, coreg, & ARB. Repeat TTE with mild , MS. Volume improved with gentle diuresis. Assessment & Plan (02/28/2018 11:54 AM DIESEL PLANT OPERATOR): Aortic stenosis s/p bioprosthetic AVR complicated by endocarditis requiring repeat surgery 2017. Repeat TTE with good function of valve. Outpatient f/u as planned. Continue asa, statin, coreg, & ARB. Repeat TTE with mild , MS. Assessment & Plan (02/27/2018 11:53 AM DIESEL PLANT OPERATOR): Aortic stenosis s/p bioprosthetic AVR complicated by endocarditis requiring repeat surgery 2017. Repeat TTE with good function of valve. Outpatient f/u as planned. Continue asa, statin, coreg, & ARB. Repeat TTE today. Assessment & Plan (02/26/2018 12:55 PM DIESEL PLANT OPERATOR): Aortic stenosis s/p bioprosthetic AVR complicated by endocarditis requiring repeat surgery 2017. Outpatient f/u as planned. Continue asa, statin, coreg, & ARB. Repeat TTE today. Assessment & Plan (02/24/2018 11:07 PM DIESEL PLANT OPERATOR): - Aortic stenosis s/p bioprosthetic AVR complicated by endocarditis requiring repeat surgery 2017. Outpatient f/u Assessment & Plan (02/21/2018 11:58 AM DIESEL PLANT OPERATOR): Aortic stenosis s/p bioprosthetic AVR complicated by endocarditis requiring repeat surgery 2016. Lungs w/o crackles, last TTE 04/2016: Bioprosthetic AV with thickened leaflets and restricted opening, small calculated EOA is suggestive of AVR dysfunction --Follow up with PCP Hyperlipidemia 08/25/2017 Assessment & Plan (02/20/2018 4:57 PM DIESEL PLANT OPERATOR): Continue pravastatin Cerebrovascular accident (CVA) 05/19/2017 Assessment & Plan (03/02/2018 12:24 PM DIESEL PLANT OPERATOR): Hx prior septic emboli with CVA with HP, complication of prior endocarditis. Cont asa, statin. AC for Pafib. PT/OT evaluation with physical debilitation with acute illness. OOB as tolerated. Plan SNF at d/c today. Assessment & Plan (03/01/2018 12:56 PM DIESEL PLANT OPERATOR): Hx prior septic emboli with CVA with HP, complication of prior endocarditis. Cont asa, statin. AC for Pafib. PT/OT evaluation with physical debilitation with acute illness. OOB as tolerated. Plan SNF at d/c Assessment & Plan (02/28/2018 11:54 AM DIESEL PLANT OPERATOR): Hx prior septic emboli with CVA with HP, complication of prior endocarditis. Cont asa, statin. AC for Pafib. PT/OT evaluation with physical debilitation with acute illness. OOB as tolerated. Assessment & Plan (02/27/2018 11:54 AM DIESEL PLANT OPERATOR): Hx prior septic emboli with CVA with HP, complication of prior endocarditis. Cont asa, statin. AC for Pafib. PT/OT evaluation with physical debilitation with acute illness. Assessment & Plan (02/26/2018 12:53 PM DIESEL PLANT OPERATOR): Hx prior CVA with HP, complication of prior endocarditis. Cont asa, statin. AC for Pafib Assessment & Plan (02/25/2018 2:16 PM DIESEL PLANT OPERATOR): Cont asa, statin. AC for afib Assessment & Plan (02/24/2018 11:08 PM DIESEL PLANT OPERATOR): Cont asa, statin Assessment & Plan (02/21/2018 11:59 AM DIESEL PLANT OPERATOR): April and May 2017 multiple recurrent ischemic strokes, ambulates well, neuro exam WNL, per daughter mostly some speech deficits. --Continue Asa, statin Chronic atrial fibrillation 02/10/2017 Assessment & Plan (03/02/2018 12:24 PM DIESEL PLANT OPERATOR): Cont bb and eliquis. Rate controlled. Monitoring serial electrolytes and WNLs. Monitoring on telemetry and no events, remains in NSR. Assessment & Plan (03/01/2018 12:56 PM DIESEL PLANT OPERATOR): Cont bb and eliquis. Rate controlled. Monitoring serial electrolytes and WNLs. Monitoring on telemetry. Assessment & Plan (02/28/2018 11:54 AM DIESEL PLANT OPERATOR): Cont bb and eliquis. Rate controlled. Monitoring serial electrolytes. Assessment & Plan (02/27/2018 3:45 PM DIESEL PLANT OPERATOR): Known history of paroxysmal atrial fibrillation. Denies tachycardia, palpitations; hemodynamically stable vital signs. ECG on admission NSR. Home regimen includes carvedilol for rate control, apixaban for anticoagulation given significant [id number] score - continue carvedilol - continue apixaban - consider telemetry monitoring given new symptoms of heart failure Assessment & Plan (02/26/2018 12:57 PM DIESEL PLANT OPERATOR): Cont bb and eliquis. Rate controlled. Assessment & Plan (02/25/2018 2:25 PM DIESEL PLANT OPERATOR): Cont bb and eliquis. Assessment & Plan (02/24/2018 11:11 PM DIESEL PLANT OPERATOR): Cont bb and eliquis. ekg with sinus with pac Assessment & Plan (02/20/2018 4:57 PM DIESEL PLANT OPERATOR): Regular on exam, EKG NSR, on Eliquis 5mg BID, CTM Gastroesophageal reflux disease 02/07/2017 Hypertension 10/07/2016 Assessment & Plan (03/02/2018 12:26 PM DIESEL PLANT OPERATOR): Cont bb and arb (increase dose to 150mg per cardiology note) and tolerating well. No hypotension with diuresis, remained stable pressures off diuretics. Assessment & Plan (03/01/2018 12:58 PM DIESEL PLANT OPERATOR): Cont bb and arb (increase dose to 150mg per cardiology note) and tolerating well. No hypotension with diuresis. Anticipate transition to oral agents. Assessment & Plan (02/28/2018 11:52 AM DIESEL PLANT OPERATOR): Cont bb and arb (increase dose to 150mg per cardiology note) and tolerating well. No hypotension with diuresis. Assessment & Plan (02/27/2018 3:26 PM DIESEL PLANT OPERATOR): Known history of HTN. Currently well-controlled with home regimen. Denies headache, vision changes, chest pain, palpitations, weakness. - continue carvedilol 6.25mg BID and irbesartan 150mg daily - low sodium diet - monitor blood pressure Assessment & Plan (02/26/2018 12:57 PM DIESEL PLANT OPERATOR): Cont bb and arb (increase dose to 150mg per cardiology note) and tolerating well. Assessment & Plan (02/25/2018 2:25 PM DIESEL PLANT OPERATOR): Cont bb and arb (increase dose to 150mg per cardiology note) Assessment & Plan (02/24/2018 11:08 PM DIESEL PLANT OPERATOR): Cont bb and arb Polyp of colon 10/06/2016 Diarrhea 10/06/2016 Duodenal ulcer 10/06/2016 Assessment & Plan (02/26/2018 12:56 PM DIESEL PLANT OPERATOR): Hx of duodenal ulcer. Cont daily ppi, no abdominal pain. Evidence of weight loss on exam. 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 Assessment & Plan (02/25/2018 2:25 PM DIESEL PLANT OPERATOR): Cont ppi Assessment & Plan (02/24/2018 11:07 PM DIESEL PLANT OPERATOR): Cont ppi Assessment & Plan (02/20/2018 5:02 PM DIESEL PLANT OPERATOR): Stable without issues this admission, 10/2016 w/o ulcers noted, continue protonix 40 Aortic valve disorder 07/26/2016 Chronic coronary artery disease 07/26/2016 Assessment & Plan (03/02/2018 12:25 PM DIESEL PLANT OPERATOR): Cont asa, statin, bb, arb. Review of last cardiology note shows Irbesartan dose of 150mg, so dose adjusted. Tolerating well. No evidence of acute ischemia & remained stable. O/p f/u with cardiology. Assessment & Plan (03/01/2018 12:57 PM DIESEL PLANT OPERATOR): Cont asa, statin, bb, arb. Review of last cardiology note shows Irbesartan dose of 150mg, so dose adjusted. Tolerating well. No evidence of acute ischemia. Assessment & Plan (02/28/2018 11:52 AM DIESEL PLANT OPERATOR): Cont asa, statin, bb, arb. Review of last cardiology note shows Irbesartan dose of 150mg, so dose adjusted. Tolerating well. Assessment & Plan (02/27/2018 3:50 PM DIESEL PLANT OPERATOR): Coronary artery disease is stable, s/p 3-vessel CABG 2009. Follows with [facility] cardiology, stress test 06/2016 with signs of minimal ischemia, currently denies any symptoms of angina, stable disease. ECG without ischemic changes, troponin <0.03. - continue aspirin and high-dose atorvastatin - continue carvedilol and irbesartan - monitor for chest pain Assessment & Plan (02/26/2018 12:57 PM DIESEL PLANT OPERATOR): Cont asa, statin, bb, arb. Review of last cardiology note shows Irbesartan dose of 150mg, so dose adjusted. Assessment & Plan (02/25/2018 2:23 PM DIESEL PLANT OPERATOR): Cont asa, statin, bb, arb. -Review of last cardiology note shows Irbesartan dose of 150mg. Assessment & Plan (02/24/2018 11:11 PM DIESEL PLANT OPERATOR): Cont asa, statin, bb, arb Assessment & Plan (02/21/2018 11:59 AM DIESEL PLANT OPERATOR): s/p 4v CABG and bioprostheric AVR: EF 58% 04/2017. Denies chest pain, 02/20 EKG NSR 98bpm, trop <.03 -continue ASA, pravastatin, coreg, irbersartan 75mg BID Encounters Date Type Department Care Team Description 10/26/2024 1:49 PM CDT - 2024 11:00 AM CDT Hospital Encounter [facility] [address] [place] [id number] Katie Mason MD Kruse, Brandon Chase, DO Mahasneh, Omar Ali Mohammed, MD Bilious vomiting with nausea (Primary Dx); Diarrhea, unspecified type; Hypomagnesemia; Leukocytosis, unspecified type; SIRS (systemic inflammatory response syndrome) (HCC); Calculus of gallbladder without cholecystitis without obstruction Discharge Disposition: Discharge to home or self care from Last 3 Months Immunizations Immunization Administration Dates Next Due Influenza, Quadrivalent, Heaven l Culture-based MDCK, Preservative Free, Antibiotic Free, Intramuscular 12/14/2018 Tdap 02/19/2024 Surgical History Surgery Date Site/Laterality Comments CORONARY ARTERY BYPASS GRAFT 02/20/2009 - 02/19/2010 AORTIC VALVE REPLACEMENT 02/20/2009 - 02/19/2010 Re-do 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 Medical History Medical History Date Comments COPD (chronic obstructive pulmonary disease) Diabetes mellitus Hypertension Pneumonia History of transfusion Gastric ulcer Diverticulitis Stroke (HCC) 2017 x2 NSTEMI (non-ST elevated myocardial infarction) ( HCC) 2009, 2016 Paroxysmal A-fib (HCC) History of colon polyps Family History Medical History Relation Name Comments Colon cancer Mother Family history of colon cancer - (Added by TW Conv)/Family history of colon cancer - (Added by TW Conv) Heart disease Other Family history of cardiac disorder - Relation: Uncle (Added by TW Conv) Relation Name Status Comments Mother Other Social History Tobacco Use Types Packs/Day Years Used Date Smoking Tobacco: Former Cigarettes Q uit: 1980 Smokeless Tobacco: Never Tobacco Cessation:Counseling Given: No Alcohol Use Standard Drinks/Week Comments No 0 (1 standard drink = 0.6 oz pur e alcohol) Humiliation, Afraid, Rape, and Kick questionnair e Answer Date Recorded Within the last year, have y ou been afraid of your partner or ex-partner? No 02/20/2024 Within the last year, have y ou been humiliated or emotionally abused in other ways by your partner or ex-partner? No Within the last year, have y ou been kicked, hit, slapped, or otherwise physically hurt by your partner or ex-partner? No 02/20/2024 Within the last year, have y ou been raped or forced to have any kind of sexual activity by your partner or ex-partner? No 02/20/2024 Social Connection and Isolation Panel Answer Date Recorded In a typical week, how many times do you talk on the phone with family, friends, or neighbors? Twice a week 02/20/2024 How often do you get togethe r with friends or relatives? Twice a week 02/20/2024 How often do you attend [facility] or hindu services? More than 4 times per year 02/20/2024 Do you belong to any clubs o r organizations such as mu-ism groups, unions, fraternal or athletic groups, or school groups? No 02/20/2024 How often do you attend meet ings of the clubs or organizations you belong to? Never 02/20/2024 Are you , , di vorced, , never , or living with a partner? 02/20/2024 AUDIT-C Answer Date Recorded Q1: How often do you have a drink containing alcohol? Never 02/20/2024 Q2: How many drinks containi ng alcohol do you have on a typical day when you are drinking? Patient does not drink Q3: How often do you have si x or more drinks on one occasion? Never 02/20/2024 Overall Financial Resource Strain (CARDIA) Answe r Date Recorded How hard is it for you to pa y for the very basics like food, housing, medical care, and heating? Not hard at all 02/20/2024 [facility] [place] of Occupat ional Health - Occupational Stress Questionnaire Answer Date Recorded Do you feel stress - tense, restless, nervous, or anxious, or unable to sleep at night because your mind is troubled all the time - these days? Not at all 02/20/2024 Exercise Vital Sign Answer Date Recorde d On average, how many days pe r week do you engage in moderate to strenuous exercise (like a brisk walk)? 2 days 02/20/2024 On average, how many minutes do you engage in exercise at this level? 0 min 02/20/2024 PRAPARE - Transportation Answer Date Re corded In the past 12 months, has l ack of transportation kept you from medical appointments or from getting medications? No 01/22 In the past 12 months, has l ack of transportation kept you from meetings, work, or from getting things needed for daily living? No 02/20/2024 Housing Stability Vital Sign Answer Luisito e Recorded In the last 12 months, was t here a time when you were not able to pay the mortgage or rent on time? No 02/20/2024 Number of Times Moved in the Last Year Not on fi le 02/20/2024 At any time in the past 12 m [facility], were you homeless or living in a detention (including now)? No 02/20/2024 Social Connection and Isolation Panel Answer Date Recorded In a typical week, how many times do you talk on the phone with family, friends, or neighbors? Twice a week 10/28/2024 How often do you get togethe r with friends or relatives? Twice a week 10/28/2024 How often do you attend chur ch or hindu services? More than 4 times per year 10/28/2024 Do you belong to any clubs o r organizations such as mu-ism groups, unions, fraternal or athletic groups, or school groups? No 10/28/2024 How often do you attend meet ings of the clubs or organizations you belong to? Never 10/28/2024 Are you , , di vorced, , never , or living with a partner? 10/28/2024 Overall Financial Resource Strain (CARDIA) Answe r Date Recorded How hard is it for you to pa y for the very basics like food, housing, medical care, and heating? Not hard at all 10/28/2024 Hunger Vital Sign Answer Date Recorded Within the past 12 months, y ou worried that your food would run out before you got the money to buy more. Never true 10/29/19 25 Within the past 12 months, t he food you bought just didn't last and you didn't have money to get more. Never true 10/28/2024 PRAPARE - Transportation Answer Date Re corded In the past 12 months, has l ack of transportation kept you from medical appointments or from getting medications? No 09/2024 In the past 12 months, has l ack of transportation kept you from meetings, work, or from getting things needed for daily living? No 10/28/2024 Housing Stability Vital Sign Answer Luisito e Recorded In the last 12 months, was t here a time when you were not able to pay the mortgage or rent on time? No 10/28/2024 In the past 12 months, how m any times have you moved where you were living? 0 10/28/2024 At any time in the past 12 m [facility], were you homeless or living in a detention (including now)? No 10/28/2024 [facility] Utilities Answer Date Recorded In the past 12 months has th e electric, gas, oil, or water company threatened to shut off services in your home? No 10/28/2024 Personal Safety Answer Date Recorded Have you ever been in or are you currently in a harmful physical or emotional relationship or is someone making you feel afraid or unsafe? Denies 10/26/2024 Sex and Gender Information Value Date Recorded Sex Assigned at Not on file Legal Sex Male 1:17 AM DIESEL PLANT OPERATOR Gender Identity Not on file Sexual Orientation Not on file Obstetrics History Last Filed Vital Signs Vital Sign Reading Time Taken Comments Blood Pressure 148/63 2024 7:55 AM CDT Pulse 67 2024 8:51 AM CDT Temperature 36.4 C (97.5 F) 2024 7:55 AM CDT Respiratory Rate 18 2024 7:55 AM CDT Oxygen Saturation 93% 2024 7:55 AM CDT Inhaled Oxygen Concentration - - Weight 66.7 kg (147 lb 0.8 oz) 10/26/2024 7:10 P M CDT Height 188 cm (6' 2) 10/28/2024 12:21 PM CDT Body Mass Index 18.88 10/26/2024 7:10 PM CDT Plan of Treatment Health Maintenance Due Date Last Done Comments Albumin Creatinine Ratio, Urine 1945 Depression Screening 1945 Dilated Eye Exam 1945 Foot Exam 1945 Hepatitis B Screening 11/02/1963 Zoster Vaccine (1 of 2) 11/02/1995 Well Visit 65+ 2010 Pneumococcal vaccine 65+ (2 of 2 - PCV) 12/15/2021 12/15/2020 Influenza Vaccine (#1) 2024 02/26/2023, 2018 Lipid Panel 02/19/2025 02/20/2024, 04/20, 08/24/2016, Additional history exists Hemoglobin A1C 04/25/2025 10/26/2024, 07/2024, 02/22/2024, Additional history exists Fall Risk Assessment 2025 2024 eGFR 2025 2024, 10/21, 10/30/2024, Additional history exists DTaP/Tdap/Td Vaccine (2 - Td or Tdap) 02/18/2034 02/19/2024 Hepatitis C Screening Completed 05/06/2016 Colon Cancer Screening-CT Colonography Discontinued 08/25/2020, 11/03/2016, 07/05/2016 Colon Cancer Screening-Colonoscopy Discontinued 08/25/2020, 11/03/2016, 07/05/2016 Colon Cancer Screening-DNA Stool Discontinued 08/25/2020, 11/03/2016, 07/05/2016 Colon Cancer Screening-FIT Discontinued 08/25, 11/03/2016, 07/05/2016 Colon Cancer Screening-FOBT Discontinued 07/2020, 11/03/2016, 07/05/2016 Colon Cancer Screening-Sigmoidoscopy Discontinued 08/25/2020, 11/03/2016, 07/05/2016 Colorectal Cancer Screening Discontinued Abdominal Aortic Aneurysm (A AA) Screen Completed 10/26/2024, 02/23/2024, 02/19/2024, Additional history exists Procedures Procedure Name Priority Date/Time Associated Diagnosis Comments HOME O2 EVAL (DESATURATION SCREEN) Routine 2024 9:29 AM CDT SIX MINUTE WALK STAT 2024 8:57 AM CDT POCT GLUCOSE DEVICE Routine 2024 7 :57 AM CDT EGFR Routine 2024 1:42 AM CDT DIFFERENTIAL AUTO Routine 2024 1:4 2 AM CDT CBC WITH AUTO DIFFERENTIAL Routine 2024 1:42 AM CDT COMPREHENSIVE METABOLIC PANEL Routine 2024 1:42 AM CDT MAGNESIUM Routine 2024 1:42 AM CDT PHOSPHORUS Routine 2024 1:42 AM CDT POCT GLUCOSE DEVICE Routine 10/31/2024 8 :19 PM CDT POCT GLUCOSE DEVICE Routine 10/31/2024 4 :51 PM CDT POCT GLUCOSE DEVICE Routine 10/31/2024 1 1:50 AM CDT POCT GLUCOSE DEVICE Routine 10/31/2024 7 :49 AM CDT EGFR Routine 10/31/2024 3:29 AM CDT DIFFERENTIAL AUTO Routine 10/31/2024 3:2 9 AM CDT CBC WITH AUTO DIFFERENTIAL Routine 10/31/2024 3:29 AM CDT COMPREHENSIVE METABOLIC PANEL Routine 10/31/2024 3:29 AM CDT MAGNESIUM Routine 10/31/2024 3:29 AM CDT PHOSPHORUS Routine 10/31/2024 3:29 AM CDT POCT GLUCOSE DEVICE Routine 10/30/2024 7 :52 PM CDT POCT GLUCOSE DEVICE Routine 10/30/2024 5 :55 PM CDT POCT GLUCOSE DEVICE Routine 10/30/2024 1 1:43 AM CDT POCT GLUCOSE DEVICE Routine 10/30/2024 1 0:15 AM CDT EGFR Routine 10/30/2024 4:07 AM CDT BASIC METABOLIC PANEL Routine 10/30/2024 4:07 AM CDT POCT GLUCOSE DEVICE Routine 10/29/2024 9 :59 PM CDT BLOOD CULTURE STAT 10/29/2024 8:18 PM CDT BLOOD CULTURE STAT 10/29/2024 8:18 PM CDT POCT GLUCOSE DEVICE Routine 10/29/2024 5 :05 PM CDT POCT GLUCOSE DEVICE Routine 10/29/2024 1 1:37 AM CDT VANCOMYCIN LEVEL TROUGH Timed 10/29/2024 5:45 AM CDT POCT GLUCOSE DEVICE Routine 10/28/2024 1 0:26 PM CDT POCT GLUCOSE DEVICE Routine 10/28/2024 7 :55 PM CDT POCT GLUCOSE DEVICE Routine 10/28/2024 3 :29 PM CDT POCT GLUCOSE DEVICE Routine 10/28/2024 1 1:17 AM CDT XR CHEST 1 VIEW IP Routine 10/28/2024 10:06 AM CDT TRANSTHORACIC ECHO (TTE) COMPLETE W DOPPLER/CF W CONTRAST Routine 10/28/2024 9:42 AM CDT EGFR Routine 10/28/2024 6:33 AM CDT DIFFERENTIAL AUTO Routine 10/28/2024 6:3 3 AM CDT VANCOMYCIN LEVEL TROUGH Timed 10/28/2024 6:33 AM CDT CBC WITH AUTO DIFFERENTIAL Routine 10/28/2024 6:33 AM CDT COMPREHENSIVE METABOLIC PANEL Routine 10/28/2024 6:33 AM CDT POCT GLUCOSE DEVICE Routine 10/27/2024 7 :34 PM CDT POCT GLUCOSE DEVICE Routine 10/27/2024 5 :01 PM CDT POCT GLUCOSE DEVICE Routine 10/27/2024 1 1:31 AM CDT EGFR Routine 10/27/2024 10:03 AM CDT DIFFERENTIAL AUTO Routine 10/27/2024 10: 03 AM CDT CBC WITH AUTO DIFFERENTIAL Routine 10/27/2024 10:03 AM CDT MAGNESIUM Routine 10/27/2024 10:03 AM CDT COMPREHENSIVE METABOLIC PANEL Routine 10/27/2024 10:03 AM CDT IRON PROFILE W/ IBC Routine 10/27/2024 1 0:03 AM CDT LACTATE Routine 10/27/2024 10:03 AM CDT POCT GLUCOSE DEVICE Routine 10/27/2024 7 :54 AM CDT SEPSIS LACTATE WITH REFLEX Timed 10/26/2024 8:33 PM CDT POCT GLUCOSE DEVICE Routine 10/26/2024 7 :11 PM CDT SEPSIS LACTATE WITH REFLEX Timed 10/26/2024 5:37 PM CDT URINALYSIS, MICROSCOPIC ONLY STAT 10/26/2024 4:43 PM CDT URINALYSIS AND REFLEX TO MICROSCOPIC AND CULTURE STAT 10/26/2024 4:43 PM CDT LIPASE Timed 10/26/2024 4:05 PM CDT TROPONIN T HIGH-SENSITIVITY 2-HOUR Timed 10/26/2024 4:[address] CHEST ABDOMEN PELVIS W CONTRAST ED 10/26/2024 3:05 PM CDT APTT STAT 10/26/2024 2:57 PM CDT PROTIME-INR Routine 10/26/2024 2:57 PM CDT BLOOD CULTURE STAT 10/26/2024 2:57 PM CDT BLOOD CULTURE STAT 10/26/2024 2:57 PM CDT ECG 12-LEAD STAT 10/26/2024 2:44 PM CDT SEPSIS LACTATE WITH REFLEX STAT 10/26/2024 2:36 PM CDT INFLUENZA A/B, RSV, AND COVID-19 PCR STAT 10/26/2024 2:36 PM CDT VITAMIN D 25 HYDROXY STAT 10/26/2024 2:04 PM CDT CRP, HIGH SENSITIVITY STAT 10/26/2024 2:04 PM CDT HEMOGLOBIN A1C STAT 10/26/2024 2:04 PM CDT TROPONIN T HIGH-SENSITIVITY SERIES (BASELINE, 2HR, 4HR, 6HR) STAT 10/26/2024 2:04 PM CDT PRO B-TYPE NATRIURETIC PEPTIDE STAT 10/26/2024 2:04 PM CDT MAGNESIUM STAT 10/26/2024 2:04 PM CDT PHOSPHORUS STAT 10/26/2024 2:04 PM CDT EGFR STAT 10/26/2024 2:04 PM CDT DIFFERENTIAL AUTO STAT 10/26/2024 2:0 4 PM CDT COMPREHENSIVE METABOLIC PANEL STAT 10/26/2024 2:04 PM CDT CBC WITH AUTO DIFFERENTIAL STAT 10/26/2024 2:04 PM CDT LIPID PANEL Routine 02/20/2024 10:15 PM [employer] COLONOSCOPY 08/25/2020 9:30 AM CDT HEPATITIS PANEL, ACUTE After X-Ray 05/06/2016 10:51 PM CDT from Last 3 Months or Most Recently Relevant to Health Maintenance Results * POCT glucose (2024 7:57 AM CDT) [facility] Glucose, POC 186 70 - 199 mg/dL Comment:Testing performed by : [address] [address] Glucose comment 1 RN/MD Notified LEX Comment:Testing performed by : [address] [address] Blood 2024 7:57 AM CDT 2024 7:57 AM CDT Gino Bryan MD LAB POCT ORDERABLE S - DEVICE Final Result [facility] [place] [address] [facility] Department [place] [address] * eGFR (2024 1:42 AM CDT) [facility] eGFR 88 >=60 mL/min/1. 73 m2 Comment: Interpretive Data Reference Interval Normal >/= 90 mL/min/1.73m2 Mildly decreased* 60 - 89 mL/min/1.73m2 Mildly to moderately decreased 45 - 59 mL/min/1.73m2 Moderately to severely decreased 30 - 44 mL/min/1.73m2 Severely decreased 15 - 29 mL/min/1.73m2 Kidney Failure < 15 mL/min/1.73m2 *Relative to young adult level Estimated glomerular filtration rate is determined by the 2020 CKD-EPI equation recommended by the National Kidney Foundation (A Unifying Approach to GFR Estimation: Recommendations of the NKF-ASK Task Force on Reassessing the Inclusion of Race in Diagnosing Kidney Disease, JASN 2020). The CKD-EPI equation should not be used for patients with unstable renal function and has not been validated in children and those over 70. Current interpretive data was last reviewed 2020. Testing performed by: [address] [address] Blood 2024 1:42 AM CDT 2024 1:51 AM CDT Gino Bryan MD LAB BLOOD ORDERABL ES Final Result [facility] [place] [address] [facility] Department of Laboratories [place], [place] [id number] * (ABNORMAL) Differential, auto (2024 1:42 AM CDT) Pathologist [facility] Neutrophil abs 6.54(H) 1.50 - 6.50 K/cumm Comment:Testing performed by : [address] [address] Imm gran abs 0.35(H) 0.00 - 0.10 K/cumm [facility] [place] Comment:Testing performed by : [address] [address] Lymphocyte abs 1.70 0.80 - 3.30 K/cumm [facility] [place] Comment:Testing performed by : [address] [address] Monocyte abs 0.99(H) 0.20 - 0.80 K/cumm [facility] Comment:Testing performed by : [address] [address] Eosinophil abs 0.28 0.00 - 0.50 K/cumm [facility] Comment:Testing performed by : [address] [address] Basophil abs 0.07 0.00 - 0.10 K/cumm [facility] Comment:Testing performed by : [address] [address] Neutrophil pct 65.9 % [facility] Comment: Interpretive Data Percent cell count reference ranges are not reported, since discordance with absolute values may lead to misinterpretation of CBC data. Current Interpretive Data was last revised on 2017. Testing performed by: [address] [address] Imm gran pct 3.5 % [facility] Comment: Interpretive Data Percent cell count reference ranges are not reported, since discordance with absolute values may lead to misinterpretation of CBC data. Current Interpretive Data was last revised on 2017. Testing performed by: [address] [address] Lymphocyte pct 17.1 % [facility] Comment: Interpretive Data Percent cell count reference ranges are not reported, since discordance with absolute values may lead to misinterpretation of CBC data. Current Interpretive Data was last revised on 2017. Testing performed by: [address] [address] Monocyte pct 10.0 % [facility] Comment: Interpretive Data Percent cell count reference ranges are not reported, since discordance with absolute values may lead to misinterpretation of CBC data. Current Interpretive Data was last revised on 2017. Testing performed by: [address] [address] Eosinophil pct 2.8 % [facility] Comment: Interpretive Data Percent cell count reference ranges are not reported, since discordance with absolute values may lead to misinterpretation of CBC data. Current Interpretive Data was last revised on 2017. Testing performed by: [address] [address] Basophil pct 0.7 % [facility] [place] Comment: Interpretive Data Percent cell count reference ranges are not reported, since discordance with absolute values may lead to misinterpretation of CBC data. Current Interpretive Data was last revised on 2017. Testing performed by: [address] [address] Blood 2024 1:42 AM CDT 2024 1:51 AM CDT us Gino Bryan MD LAB BLOOD ORDERABL ES Final Result [facility] Department [place] [address] * (ABNORMAL) CBC with auto differential (2024 1:42 AM CDT) WBC 9.93(H) 3.80 - 9.90 K/cumm Comment:Testing performed by : [address] [address] Hgb 10.5(L) 13.0 - 17.5 g/dL [facility] Comment:Testing performed by : [address] [address] Hct 32.4(L) 38.9 - 50.3 % [facility] [place] Comment:Testing performed by : [address] [address] Plt 391 150 - 400 K/cumm LEX Comment:Testing performed by : [address] [address] MPV 9.4 9.1 - 12.3 fL [facility] [place] Comment:Testing performed by : [address] [address] RBC 4.06(L) 4.30 - 5.80 M/cumm [facility] Comment:Testing performed by : [address] [address] MCV 79.8(L) 81.3 - 96.4 fL [facility] [place] Comment:Testing performed by : [address] [address] MCH 25.9(L) 27.1 - 33.3 pg [facility] [place] Comment:Testing performed by : [address] [address] MCHC 32.4 32.3 - 35.7 g/dL [facility] [place] Comment:Testing performed by : [address] [address] RDW CV 15.1(H) 11.1 - 14.9 % [facility] [place] Comment:Testing performed by : [address] [address] RDW SD 43.8 35.7 - 48.1 fL [facility] [place] Comment:Testing performed by : [address] [address] NRBC abs 0.00 0.00 - 0.01 K/cumm L[facility] Comment:Testing performed by : [address], [address] Blood 2024 1:42 AM CDT 2024 1:51 AM CDT Gino Bryan MD LAB BLOOD ORDERABL ES Final Result Performing Organization Address City/[facility] Co de Phone Number [facility] [address] [facility] Department [place] [address] * Phosphorus (2024 1:42 AM CDT) Phosphorus, pl 3.6 2.3 - 4.5 mg/dL Comment:Testing performed by : [address] [address] Blood 2024 1:42 AM CDT 2024 1:51 AM CDT Gino Bryan MD LAB BLOOD ORDERABL ES Final Result Performing Organization Address City/[facility]/ZIP Co de Phone Number [facility] [address] [facility] Department [place] [address] * Magnesium (2024 1:42 AM CDT) Pathologist [facility] Magnesium 1.8 1.4 - 2.5 mg/dL Comment:Testing performed by : [address] [address] Blood 2024 1:42 AM CDT 2024 1:51 AM CDT Gino Bryan MD LAB BLOOD ORDERABL ES Final Result [facility] [address] [facility] [place] [address] * (ABNORMAL) Comprehensive metabolic panel (2024 1:42 AM CDT) [facility] Sodium 137 135 - 145 mmol/L Comment:Testing performed by : [address] [address] Potassium, pl 4.1 3.3 - 4.9 mmol/L LEX Comment:Testing performed by : [address] [address] Chloride 104 97 - 110 mmol/L LEX Comment:Testing performed by : [address] [address] CO2 23 22 - 32 mmol/L LEX Comment:Testing performed by : [address] [address] Anion gap 10 2 - 15 mmol/L LEX Comment:Testing performed by : [address] [address] BUN 25 6 - 25 mg/dL LEX Comment:Testing performed by : [address] [address] Creatinine 0.87 0.80 - 1.30 mg/dL LEX Comment:Testing performed by : [address] [address] Glucose 166 70 - 199 mg/dL LEX Comment: Interpretive Data Fasting glucose >/= 126 mg/dl is diagnostic for diabetes. Fasting is defined as no caloric intake for at least 8 hours. Fasting glucose between 100 mg/dl to 125 mg/dl is diagnostic of prediabetes. In a patient with classic symptoms of hyperglycemia or hyperglycemic crisis, a random glucose >/= 200 mg/dl is diagnostic for diabetes. In the absence of unequivocal hyperglycemia, results should be confirmed by repeat testing. The classification and Diagnosis of Diabetes Diabetes Care 2021; 46: S19-S40. Current interpretive data was last revised 2022. Testing performed by: [address] [address] Calcium 8.7 8.5 - 10.3 mg/dL LEX Comment:Testing performed by : [address] [address] Bilirubin, total 0.3 0.1 - 1.2 mg/dL LEX Comment:Testing performed by : [address] [address] Protein, pl 5.6(L) 6.5 - 8.5 g/dL L[facility] Comment:Testing performed by : [address] [address] Albumin 2.5(L) 3.5 - 5.0 g/dL LEX Comment:Testing performed by : [address] [address] Alk phos 122 40 - 130 Units/L LEX Comment:Testing performed by : [address] [address] ALT 32 7 - 55 Units/L LEX Comment:Testing performed by : [address] [address] AST 17 10 - 50 Units/L LEX Comment:Testing performed by : [address] [address] Blood 2024 1:42 AM CDT 2024 1:51 AM CDT Gino Bryan MD LAB BLOOD ORDERABL ES Final Result Performing Organization Address [facility] Co de Phone Number [address] [address] * POCT glucose (10/31/2024 8:19 PM CDT) Glucose, POC 182 70 - 199 mg/dL Comment:Testing performed by : [address], [address] Glucose comment 1 RN/MD Notified LEX Comment:Testing performed by : [address], [address] Blood 10/31/2024 8:19 PM CDT 10/31/2024 8:19 PM CDT Gino Bryan MD LAB POCT ORDERABLE S - DEVICE Final Result Performing Organization Address [facility] de Phone Number [address] [address] * (ABNORMAL) POCT glucose (10/31/2024 4:51 PM CDT) Glucose, POC 220(H) 70 - 199 mg/dL Comment:Testing performed by : [address] [address] Glucose comment 1 RN/ Notified LEX Comment:Testing performed by : [address] [address] Glucose comment 2 Follow Protocol LEX Comment:Testing performed by : [address] [address] Blood 10/31/2024 4:51 PM CDT 10/31/2024 4:51 PM CDT Gino Bryan MD LAB POCT ORDERABLE S - DEVICE Final Result Performing Organization Address [facility] Co de Phone Number [address] [address] * (ABNORMAL) POCT glucose (10/31/2024 11:50 AM CDT) Glucose, POC 228(H) 70 - 199 mg/dL Comment:Testing performed by : [address], [address] Glucose comment 1 RN/MD Notified LEX Comment:Testing performed by : [address], [address] Glucose comment 2 Follow Protocol LEX Comment:Testing performed by : [address], [address] Blood 10/31/2024 11:5 0 AM CDT 10/31/2024 11:50 AM CDT Gino Bryan MD LAB POCT ORDERABLE S - DEVICE Final Result Performing Organization Address [facility] Co de Phone Number [address] [place] [address] * POCT glucose (10/31/2024 7:49 AM CDT) [facility] Glucose, POC 185 70 - 199 mg/dL Comment:Testing performed by : [address], [address] Blood 10/31/2024 7:49 AM CDT 10/31/2024 7:49 AM CDT Gino Bryan MD LAB POCT ORDERABLE S - DEVICE Final Result Performing Organization Address City/[facility]/ZIP Co de Phone Number [place] [address] [facility] [place] [address] * eGFR (10/31/2024 3:29 AM CDT) [facility] eGFR 89 >=60 mL/min/1. 73 m2 Comment: Interpretive Data Reference Interval Normal >/= 90 mL/min/1.73m2 Mildly decreased* 60 - 89 mL/min/1.73m2 Mildly to moderately decreased 45 - 59 mL/min/1.73m2 Moderately to severely decreased 30 - 44 mL/min/1.73m2 Severely decreased 15 - 29 mL/min/1.73m2 Kidney Failure < 15 mL/min/1.73m2 *Relative to young adult level Estimated glomerular filtration rate is determined by the 2020 CKD-EPI equation recommended by the National Kidney Foundation (A Unifying Approach to GFR Estimation: Recommendations of the NKF-ASK Task Force on Reassessing the Inclusion of Race in Diagnosing Kidney Disease, JASN 202). The CKD-EPI equation should not be used for patients with unstable renal function and has not been validated in children and those over 70. Current interpretive data was last reviewed 2020. Testing performed by: [address] [address] Blood 10/31/2024 3:29 AM CDT 10/31/2024 4:37 AM CDT Gino Bryan MD LAB BLOOD ORDERABL ES Final Result [facility] Department [place] [address] * (ABNORMAL) Differential, auto (10/31/2024 3:29 AM CDT) Neutrophil abs 6.11 1.50 - 6.50 K/cumm Comment:Testing performed by : [address] [address] Imm gran abs 0.21(H) 0.00 - 0.10 K/cumm LEX Comment:Testing performed by : [address] [address] Lymphocyte abs 1.47 0.80 - 3.30 K/cumm LEX Comment:Testing performed by : [address] [address] Monocyte abs 1.16(H) 0.20 - 0.80 K/cumm LEX Comment:Testing performed by : [address] [address] Eosinophil abs 0.21 0.00 - 0.50 K/cumm [facility] Comment:Testing performed by : [address] [address] Basophil abs 0.07 0.00 - 0.10 K/cumm [facility] Comment:Testing performed by : [address] [address] Neutrophil pct 66.1 % [facility] Comment: Interpretive Data Percent cell count reference ranges are not reported, since discordance with absolute values may lead to misinterpretation of CBC data. Current Interpretive Data was last revised on 2017. Testing performed by: [address] [address] Imm gran pct 2.3 % [facility] Comment: Interpretive Data Percent cell count reference ranges are not reported, since discordance with absolute values may lead to misinterpretation of CBC data. Current Interpretive Data was last revised on 2017. Testing performed by: [address] [address] Lymphocyte pct 15.9 % [facility] Comment: Interpretive Data Percent cell count reference ranges are not reported, since discordance with absolute values may lead to misinterpretation of CBC data. Current Interpretive Data was last revised on 2017. Testing performed by: [address] [address] Monocyte pct 12.6 % [facility] Comment: Interpretive Data Percent cell count reference ranges are not reported, since discordance with absolute values may lead to misinterpretation of CBC data. Current Interpretive Data was last revised on 2017. Testing performed by: [address] [address] Eosinophil pct 2.3 % [facility] Comment: Interpretive Data Percent cell count reference ranges are not reported, since discordance with absolute values may lead to misinterpretation of CBC data. Current Interpretive Data was last revised on 2017. Testing performed by: [address] [address] Basophil pct 0.8 % [facility] Comment: Interpretive Data Percent cell count reference ranges are not reported, since discordance with absolute values may lead to misinterpretation of CBC data. Current Interpretive Data was last revised on 2017. Testing performed by: [address] [address] Blood 10/31/2024 3:29 AM CDT 10/31/2024 4:39 AM CDT Gino Bryan MD LAB BLOOD ORDERABL ES Final Result [facility] [address] [facility] Department [place] [address] * (ABNORMAL) CBC with auto differential (10/31/2024 3:29 AM CDT) WBC 9.23 3.80 - 9.90 K/cumm Comment:Testing performed by : [address] [address] Hgb 10.6(L) 13.0 - 17.5 g/dL LEX Comment:Testing performed by : [address] [address] Hct 31.9(L) 38.9 - 50.3 % LEX Comment:Testing performed by : [address] [address] Plt 362 150 - 400 K/cumm LEX Comment:Testing performed by : [address] [address] MPV 10.0 9.1 - 12.3 fL LEX Comment:Testing performed by : [address] [address] RBC 4.03(L) 4.30 - 5.80 M/cumm LEX Comment:Testing performed by : [address] [address] MCV 79.2(L) 81.3 - 96.4 fL LEX Comment:Testing performed by : [address] [address] MCH 26.3(L) 27.1 - 33.3 pg LEX Comment:Testing performed by : [address] [place]., [address] MCHC 33.2 32.3 - 35.7 g/dL [facility] [place] Comment:Testing performed by : [address], [address] RDW CV 15.0(H) 11.1 - 14.9 % [facility] Comment:Testing performed by : [address], [address] RDW SD 43.3 35.7 - 48.1 fL [facility] [place] Comment:Testing performed by : [address], [address] NRBC abs 0.00 0.00 - 0.01 K/cumm [facility] Comment:Testing performed by : [address], [address] Blood 10/31/2024 3:29 AM CDT 10/31/2024 4:39 AM CDT Gino Bryan MD LAB BLOOD ORDERABL ES Final Result Performing Organization Address City/[facility] Co de Phone Number [address] [place] [address] * Phosphorus (10/31/2024 3:29 AM CDT) Pathologist [facility] Phosphorus, pl 3.2 2.3 - 4.5 mg/dL Comment:Testing performed by : [address], [address] Blood 10/31/2024 3:29 AM CDT 10/31/2024 4:37 AM CDT Gino Bryan MD LAB BLOOD ORDERABL ES Final Result Performing Organization Address City/State/[facility] Co de Phone Number [address] [address] * Magnesium (10/31/2024 3:29 AM CDT) Pathologist [facility] Magnesium 1.8 1.4 - 2.5 mg/dL Comment:Testing performed by : [address] [address] Blood 10/31/2024 3:29 AM CDT 10/31/2024 4:37 AM CDT Gino Bryan MD LAB BLOOD ORDERABL ES Final Result [facility] [address] [facility] Department [place] [address] * (ABNORMAL) Comprehensive metabolic panel (10/31/2024 3:29 AM CDT) Sodium 136 135 - 145 mmol/L Comment:Testing performed by : [address] [address] Potassium, pl 4.1 3.3 - 4.9 mmol/L LEX Comment:Testing performed by : [address] [address] Chloride 102 97 - 110 mmol/L LEX Comment:Testing performed by : [address] [address] CO2 24 22 - 32 mmol/L LEX Comment:Testing performed by : [address] [address] Anion gap 10 2 - 15 mmol/L LEX Comment:Testing performed by : [address] [address] BUN 23 6 - 25 mg/dL LEX Comment:Testing performed by : [address] [address] Creatinine 0.84 0.80 - 1.30 mg/dL LEX Comment:Testing performed by : [address] [address] Glucose 229(H) 70 - 199 mg/dL L[facility] Comment: Interpretive Data Fasting glucose >/= 126 mg/dl is diagnostic for diabetes. Fasting is defined as no caloric intake for at least 8 hours. Fasting glucose between 100 mg/dl to 125 mg/dl is diagnostic of prediabetes. In a patient with classic symptoms of hyperglycemia or hyperglycemic crisis, a random glucose >/= 200 mg/dl is diagnostic for diabetes. In the absence of unequivocal hyperglycemia, results should be confirmed by repeat testing. The classification and Diagnosis of Diabetes Diabetes Care 202; 46: S19-S40. Current interpretive data was last revised 2022. Testing performed by: [facility], [address] [place] [address]., [address] Calcium 8.7 8.5 - 10.3 mg/dL LEX Comment:Testing performed by : [address] [address] Bilirubin, total 0.3 0.1 - 1.2 mg/dL LEX Comment:Testing performed by : [address] [address] Protein, pl 5.6(L) 6.5 - 8.5 g/dL LEX Comment:Testing performed by : [address] [address] Albumin 2.4(L) 3.5 - 5.0 g/dL LEX Comment:Testing performed by : [address] [address] Alk phos 85 40 - 130 Units/L LEX Comment:Testing performed by : [address] [address] ALT 33 7 - 55 Units/L LEX Comment:Testing performed by : [address] [address] AST 21 10 - 50 Units/L LEX Comment:Testing performed by : [address] [address] Blood 10/31/2024 3:29 AM CDT 10/31/2024 4:37 AM CDT us Gino Bryan MD LAB BLOOD ORDERABL ES Final Result [facility] [address] [facility] Department [place] [address] * POCT glucose (10/30/2024 7:52 PM CDT) Glucose, POC 105 70 - 199 mg/dL Comment:Testing performed by : [address] [address] Blood 10/30/2024 7:52 PM CDT 10/30/2024 7:52 PM CDT Gino Bryna MD LAB POCT ORDERABLE S - DEVICE Final Result Performing Organization Address [facility] Co de Phone Number [address] [place] [address] * POCT glucose (10/30/2024 5:55 PM CDT) Glucose, POC 165 70 - 199 mg/dL Comment:Testing performed by : [address] [address] Blood 10/30/2024 5:55 PM CDT 10/30/2024 5:55 PM CDT Gino Bryan MD LAB POCT ORDERABLE S - DEVICE Final Result Performing Organization Address [facility] de Phone Number [address] [address] * (ABNORMAL) POCT glucose (10/30/2024 11:43 AM CDT) Glucose, POC 258(H) 70 - 199 mg/dL Comment:Testing performed by : [address] [address] Glucose comment 1 RN/MD Notified LEX Comment:Testing performed by : [address] [address] Blood 10/30/2024 11:4 3 AM CDT 10/30/2024 11:43 AM CDT Gino Bryan MD LAB POCT ORDERABLE S - DEVICE Final Result Performing Organization Address City/[facility] Co de Phone Number [place] [phone] [facility] [place] [address] * POCT glucose (10/30/2024 10:15 AM CDT) [facility] Glucose, POC 180 70 - 199 mg/dL Comment:Testing performed by : [address] [address] Glucose comment 1 RN/MD Notified LEX Comment:Testing performed by : [address] [address] Blood 10/30/2024 10:1 5 AM CDT 10/30/2024 10:15 AM CDT Gino Bryan MD LAB POCT ORDERABLE S - DEVICE Final Result Performing Organization Address City/[facility] Co de Phone Number [place] [phone] [facility] Department [place] [address] * eGFR (10/30/2024 4:07 AM CDT) [facility] eGFR 90 >=60 mL/min/1. 73 m2 Comment: Interpretive Data Reference Interval Normal >/= 90 mL/min/1.73m2 Mildly decreased* 60 - 89 mL/min/1.73m2 Mildly to moderately decreased 45 - 59 mL/min/1.73m2 Moderately to severely decreased 30 - 44 mL/min/1.73m2 Severely decreased 15 - 29 mL/min/1.73m2 Kidney Failure < 15 mL/min/1.73m2 *Relative to young adult level Estimated glomerular filtration rate is determined by the 2020 CKD-EPI equation recommended by the National Kidney Foundation (A Unifying Approach to GFR Estimation: Recommendations of the NKF-ASK Task Force on Reassessing the Inclusion of Race in Diagnosing Kidney Disease, JASN 2020). The CKD-EPI equation should not be used for patients with unstable renal function and has not been validated in children and those over 70. Current interpretive data was last reviewed 2020. Testing performed by: [address] [address] Blood 10/30/2024 4:07 AM CDT 10/30/2024 5:23 AM CDT iGno Bryan MD LAB BLOOD ORDERABL ES Final Result [facility] [address] [facility] Department [place] [address] * (ABNORMAL) Basic metabolic panel (10/30/2024 4:07 AM CDT) Sodium 136 135 - 145 mmol/L Comment:Testing performed by : [address] [address] Potassium, pl 4.1 3.3 - 4.9 mmol/L LEX Comment:Testing performed by : [address] [address] Chloride 102 97 - 110 mmol/L LEX Comment:Testing performed by : [address] [address] CO2 21(L) 22 - 32 mmol/L LEX Comment:Testing performed by : [address] [address] Anion gap 13 2 - 15 mmol/L LEX Comment:Testing performed by : [address] [address] BUN 23 6 - 25 mg/dL LEX Comment:Testing performed by : [address] [address] Creatinine 0.81 0.80 - 1.30 mg/dL LEX Comment:Testing performed by : [address] [address] Glucose 223(H) 70 - 199 mg/dL LEX Comment: Interpretive Data Fasting glucose >/= 126 mg/dl is diagnostic for diabetes. Fasting is defined as no caloric intake for at least 8 hours. Fasting glucose between 100 mg/dl to 125 mg/dl is diagnostic of prediabetes. In a patient with classic symptoms of hyperglycemia or hyperglycemic crisis, a random glucose >/= 200 mg/dl is diagnostic for diabetes. In the absence of unequivocal hyperglycemia, results should be confirmed by repeat testing. The classification and Diagnosis of Diabetes Diabetes Care 202; 46: S19-S40. Current interpretive data was last revised 2022. Testing performed by: [address] [address] Calcium 8.9 8.5 - 10.3 mg/dL LEX Comment:Testing performed by : [address] [address] Blood 10/30/2024 4:07 AM CDT 10/30/2024 5:23 AM CDT Gino Bryan MD LAB BLOOD ORDERABL ES Final Result Performing Organization Address [facility] Co de Phone Number [place] [id number] [facility] [place] [address] * POCT glucose (10/29/2024 9:59 PM CDT) Glucose, POC 155 70 - 199 mg/dL Comment:Testing performed by : [address] [address] Blood 10/29/2024 9:59 PM CDT 10/29/2024 9:59 PM CDT Gino Bryan MD LAB POCT ORDERABLE S - DEVICE Final Result Performing Organization Address City/[facility] Co de Phone Number [facility] [address] [facility] [place] [address] * Blood culture Blood (10/29/2024 8:18 PM CDT) Report Final Report: No growth Comment:Testing performed by : [facility], [address] [facility], [place]., [address] Blood 10/29/2024 8:18 PM CDT 10/29/2024 11:47 PM CDT Narrative LEX - 11/03/2024 7:01 AM CDT From a different site than #1. Collection->Peripheral 1. Blood cultures are incubated for 4 days on a continuously monitored blood culture system. The first report of a negative culture is issued within 24 hours of receipt of the specimen in the laboratory. 2. Positive culture results are reported as soon as they are detected. 3. The most important factor for detection of microbes in the setting of bloodstream infection is the volume of blood submitted for culture. Failure to collect an optimal blood volume can result in false negative blood cultures. 4. For pediatric patients, the recommended blood volume to collect follows a weight based strategy. See the electronic test catalog for collection instructions. 5. For positive blood cultures, a rapid molecular test may be performed for organism identification using the annie ePlex blood culture identification panel for gram positive (BCID-GP) and gram negative (BCID-GN) organisms. This nucleic acid amplification test detects microbial DNA in positive blood culture broth. This assay has been cleared by the [place] Food and Drug Administration and its performance characteristics have been verified by the [facility]. For questions about this culture, contact the Microbiology Laboratory at [phone]. Interpretive data was last revised on 23. Gino Bryan MD LAB MICROBIOLOGY - GENERAL ORDERABLES Final Result L[place] [address] [facility] Department of Laboratories [place], [place] [id number] * Blood culture Blood (10/29/2024 8:18 PM CDT) Report Final Report: No growth Comment:Testing performed by : [facility], [address] [facility], [place]., [address] Blood 10/29/2024 8:18 PM CDT 10/29/2024 11:47 PM CDT Narrative LEX - 11/03/2024 7:01 AM CDT Collection->Peripheral 1. Blood cultures are incubated for 4 days on a continuously monitored blood culture system. The first report of a negative culture is issued within 24 hours of receipt of the specimen in the laboratory. 2. Positive culture results are reported as soon as they are detected. 3. The most important factor for detection of microbes in the setting of bloodstream infection is the volume of blood submitted for culture. Failure to collect an optimal blood volume can result in false negative blood cultures. 4. For pediatric patients, the recommended blood volume to collect follows a weight based strategy. See the electronic test catalog for collection instructions. 5. For positive blood cultures, a rapid molecular test may be performed for organism identification using the annie ePlex blood culture identification panel for gram positive (BCID-GP) and gram negative (BCID-GN) organisms. This nucleic acid amplification test detects microbial DNA in positive blood culture broth. This assay has been cleared by the [place] Food and Drug Administration and its performance characteristics have been verified by the [facility]. For questions about this culture, contact the Microbiology Laboratory at [phone]. Interpretive data was last revised on 23. Gino Bryan MD LAB MICROBIOLOGY - GENERAL ORDERABLES Final Result Performing Organization Address City/[facility]/ZIP Co de Phone Number L[place] [address] [place] [address] * (ABNORMAL) POCT glucose (10/29/2024 5:05 PM CDT) Glucose, POC 370(H) 70 - 199 mg/dL Comment:Testing performed by : [facility], [address] [place] [address]., [address] Blood 10/29/2024 5:05 PM CDT 10/29/2024 5:05 PM CDT Gino Bryan MD LAB POCT ORDERABLE S - DEVICE Final Result Performing Organization Address City/[facility]/ZIP Co de Phone Number L[place] [address] [place] [address] * (ABNORMAL) POCT glucose (10/29/2024 11:37 AM CDT) Glucose, POC 304(H) 70 - 199 mg/dL Comment:Testing performed by : [address] [address] Blood 10/29/2024 11:3 7 AM CDT 10/29/2024 11:37 AM CDT Gino Bryan MD LAB POCT ORDERABLE S - DEVICE Final Result Performing Organization Address [facility] Co de Phone Number [address] [place] [address] * Vancomycin level trough (10/29/2024 5:45 AM CDT) Pathologist [facility] Vancomycin trough 18.5 10.0 - 20.0 mcg/mL Comment:Testing performed by : [address] [address] Blood 10/29/2024 5:45 AM CDT 10/29/2024 5:58 AM CDT [employer] DO LAB BLOOD ORDERABLES Reny l Result Performing Organization Address [facility] de Phone Number [address] [place] [address] * (ABNORMAL) POCT glucose (10/28/2024 10:26 PM CDT) Glucose, POC 278(H) 70 - 199 mg/dL Comment:Testing performed by : [address] [address] Glucose comment 1 Follow Protocol LEX Comment:Testing performed by : [address] [address] Blood 10/28/2024 10:2 6 PM CDT 10/28/2024 10:26 PM CDT Garrett Nikhil Desirae DO LAB POCT ORDERABLES - DEV ICE Final Result Performing Organization Address [facility] Co de Phone Number [facility] [address] [place] [address] * (ABNORMAL) POCT glucose (10/28/2024 7:55 PM CDT) Glucose, POC 451(C) 70 - 199 mg/dL Comment:Testing performed by : [facility], [address] [place] [address]., [address] Glucose comment 1 RN/MD Notified LEX Comment:Testing performed by : [address] [address] Blood 10/28/2024 7:55 PM CDT 10/28/2024 7:55 PM CDT [employer] DO LAB POCT ORDERABLES - DEV ICE Final Result Performing Organization Address [facility]/ZIP Co de Phone Number [place] [id number] [place] [address] * (ABNORMAL) POCT glucose (10/28/2024 3:29 PM CDT) Glucose, POC 350(H) 70 - 199 mg/dL Comment:Testing performed by : [address] [address] Blood 10/28/2024 3:29 PM CDT 10/28/2024 3:29 PM CDT Garrett SinDelantal Desirae DO LAB POCT ORDERABLES - DEV ICE Final Result [place] [id number] [place] [address] * (ABNORMAL) POCT glucose (10/28/2024 11:17 AM CDT) Glucose, POC 216(H) 70 - 199 mg/dL Comment:Testing performed by : [address] [address] Blood 10/28/2024 11:1 7 AM CDT 10/28/2024 11:17 AM CDT us Garrett Merrill DO LAB POCT ORDERABLES - DEV ICE Final Result L[place] [address] [facility] [place] [address] * XR Chest 1 View (10/28/2024 10:06 AM CDT) Anatomical Region Laterality Modality Body, Chest N/A Computed Radiogr aphy 10/28/2024 10:5 2 AM CDT Narrative 10/28/2024 10:58 AM CDT EXAM DESCRIPTION: XR CHEST 1 VIEW REASON FOR STUDY: dyspnea Pt states sob today TECHNIQUE: AP portable radiographic view(s) of the chest. COMPARISON: CT dated 10/26/2024 and 02/23/2024. Radiograph dated 02/19/2024. FINDINGS: LUNGS: There are extensive bilateral pulmonary opacities throughout the lungs, left greater than right. Opacity on the left has increased compared to the customer service associate image from recent CT. Opacities on the right are new. This could represent underlying edema, pneumonia or a combination there of. There is a left-sided effusion. No right effusion. No pneumothorax. HEART/MEDIASTINUM: Cardiac silhouette is within normal limits in size for projection. Pulmonary vascularity is enlarged. Atherosclerotic vascular calcifications. LINES/TUBES: Sternotomy changes are present. BONES: No acute osseous abnormality. IMPRESSION: 1. Interval worsening of left-sided can opacities compared to customer service associate image from CT scan on 10/26/2024 with interval development of opacities within the right lung. Both interstitial and alveolar opacities are present which could reflect edema, pneumonia or a combination there of. Follow-up recommended. 2. Left effusion. 3. Cardiac silhouette grossly stable in size. Pulmonary vascularity is enlarged. THIS IS AN ELECTRONICALLY VERIFIED FINAL REPORT 10/28/2024 10:58 AM - Electronically signed by Leonela Sierra M.D. TW: JOHN Report ID: [id number] Reading Location: [id number] Procedure Note Leonela Sierra MD - 10/28/2024 EXAM DESCRIPTION: XR CHEST 1 VIEW REASON FOR STUDY: dyspnea Pt states sob today TECHNIQUE: AP portable radiographic view(s) of the chest. COMPARISON: CT dated 10/26/2024 and 02/23/2024. Radiograph dated1. FINDINGS: LUNGS: There are extensive bilateral pulmonary opacitiesthroughout the lungs, left greater than right. Opacity on the left has increased compared to the customer service associate image from recent CT. Opacities on the right arenew. This could represent underlying edema, pneumonia or a combination thereof. There is a left-sided effusion. No right effusion. No pneumothorax. HEART/MEDIASTINUM: Cardiac silhouette is within normal limits in size for projection. Pulmonary vascularity is enlarged. Atherosclerotic vascular calcifications. LINES/TUBES: Sternotomy changes are present. BONES: No acute osseous abnormality. IMPRESSION: 1. Interval worsening of left-sided can opacities compared to scoutimage from CT scan on 10/26/2024 with interval development of opacities withinthe right lung. Both interstitial and alveolar opacities are present whichcould reflect edema, pneumonia or a combination there of. Follow-uprecommended. 2. Left effusion. 3. Cardiac silhouette grossly stable in size. Pulmonary vascularity is enlarged. THIS IS AN ELECTRONICALLY VERIFIED FINAL REPORT 10/28/2024 10:58 AM - Electronically signed by Leonela Sierra M.D. TW: TW Report ID: [id number] Reading Location: [id number] us Garrett Merrill DO IMG XR PROCEDURES Final R esult * TRANSTHORACIC ECHO (TTE) COMPLETE W DOPPLER/CF W CONTRAST (10/28/2024 9:42 AM CDT) Estimated EF 54 % CONS SCIMAGE EF Mod BP 72 % CONS SCIMAGE Anatomical Region Laterality Modality Ultrasound 10/28/2024 9:01 AM CDT Narrative 10/28/2024 4:09 PM CDT Transthoracic Echocardiographic Report Patient Name: OMEGA OZUNA J : 1945 (78y 11m) Gender: M Study Date: 10/28/2024 09:01:37 AM Ht(Inch): 74 Wt(Lb): 147 BSA: 1.87 Specialty Trimmer: Kasandra Gates RDCS Location: [place] [address] Order Provider: PATIENCE BARNETT Heart Rate: 67 BMI: 18.87 BP: 153 / 55 Ref Provider: PATIENCE BARNETT PROCEDURES: Echocardiographic Report: ([id number]) Transthoracic complete echo with contrast, 2D, spectral and tissue Doppler, color flow Doppler, M-mode. Contrast: A contrast injection of Definity was performed to improve assessment of LV function. Definity Lot Number: [id number]. INDICATIONS: Hypotension. FINDINGS: Left Ventricle: Normal left ventricular cavity size. Left ventricle visually appears to be low normal function. The Ejection Fraction is visually estimated to be 54 %. Diastolic Function Mitral inflow pattern is Normal and E to E' ratio is >15 suggesting a high pulmonary wedge pressure and LV diastolic dysfunction. No Thrombus noted in Left Ventricle. Regional Wall Motion: There is hypokinesis in the basal posterior segment. Right Ventricle: Right ventricular dilatation. Normal right ventricular systolic function. Left Atrium: Mildly dilated left atrium. Right Atrium: Mildly dilated right atrium. Atrial Septum: The interatrial septum is normal in appearance. Mitral Valve: Moderate mitral annular calcification. There is mild mitral valve regurgitation. No mitral valve stenosis. Aortic Valve: The mean transaortic gradient is 31 mmHg. 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 The aortic prosthesis demonstrates a mildly increased transvalvular gradient for valve type and size. This is suggestive of mild prosthetic aortic stenosis. Tricuspid Valve: The tricuspid valve demonstrates normal leaflet structure. There is mild tricuspid regurgitation. Pulmonic Valve: Pulmonic Valve not well visualized due to poor echo windows. Pericardium: No pericardial effusion. Aorta: Normal aortic root. IVC: IVC has blunted respirophasic collapse. IVC is dilated. The estimated RA pressure is 10-15 mmHg. CONCLUSIONS: 1. Left ventricle visually appears to be low normal function. The Ejection Fraction is visually estimated to be 54 %. 2. Aortic valve. Probably mechanical. Mean prosthetic valve gradient 31 mm of mercury which is mildly increased. There was no transvalvular or paravalvular leak. 3. Elevated right atrial pressure. MEASUREMENTS: 2D/MM Value Range Doppler Value LVIDd 2D 5.30 cm [ 3.50 - 5.70 ] AV Peak Dave 3.58 m/s LVIDs 2D 4.00 cm [ 3.10 - 4.60 ] AV Peak PG 51.27 mmHg IVSd 2D 1.00 cm [ 0.60 - 1.20 ] AV Mean PG 31.00 mmHg LVPWd 2D 1.40 cm [ 0.60 - 1.10 ] AV VTI 90.80 cm LV Thickness Ratio 0.71 LVOT Peak Dave 1.60 m/s LV Mass 2D 261.33 g LVOT Peak PG 10.24 mmHg LV Mass Index 2D 139.75 g/m2 LVOT Mean PG 6.00 mmHg RWT 0.53 LVOT VTI 38.30 cm EDV Mod BP 133.00 ml [ 62.00 - 150.00 ] LVOT/AV VTI 0.42 - Dimensionless index (DVI) LV EDV Index 71.12 ml/m2 MV E Peak Dave 1.41 m/s ESV Mod BP 36.80 ml [ 21.00 - 61.00 ] MV A Peak Dave 1.04 m/s EF Mod BP 72 % [ 52 - 72 ] MV E/A 1.40 ratio Visually Estimated EF 54 % MV Decel Time 164.00 msec LA Dimension 2D 4.90 cm [ 1.90 - 4.00 ] Med E` Dave 0.06 m/s LA Length 2C 6.15 cm Lat E` Dave 0.11 m/s LA Length 4C 4.19 cm Average E/E` 1658.82 RVDd 2D 3.30 cm [ 2.00 - 3.00 ] RV S` 0.11 m/s TAPSE 2.04 cm [ 1.71 - 5.00 ] TR Peak Dave 2.87 m/s RA Volume 53.90 ml TR Peak PG 32.9 mmHg RA Volume Index 28.82 ml/m2 PV Peak Dave 0.79 m/s PV Peak PG 2.50 mmHg - ATTESTATION: I have reviewed and interpreted the pertinent images and measurements of this study. I attest to the conclusions in the final report that is provided above. DISCLAIMER: The study images and the final report will be retained in the patient chart by the Echo Laboratory for the legally required time period. This chart constitutes the legal record of any testing performed. Electronically Signed By: Sultan Shauna GAR 10/28/2024 4:08:57 PM CDT Procedure Note Sultan Galen Villatoro MD - 10/28/2024 Transthoracic Echocardiographic Report Patient Name: OMEGA OZUNA J : 1945 (78y 11m) Gender: M Study Date: 10/28/2024 09:01:37 AM Ht(Inch): 74 Wt(Lb): 147 BSA: 1.87 Specialty Trimmer: Kasandra Gates RDCS Location: [place] [address] Order Provider:PATIENCE BARNETT Heart Rate: 67 BMI: 18.87 BP: 153 / 55 Ref Provider: PATIENCE BARNETT PROCEDURES: Echocardiographic Report: ([id number]) Transthoracic complete echo withcontrast, 2D, spectral and tissue Doppler, color flow Doppler, M-mode. Contrast: A contrast injection of Definity was performed to improveassessment of LV function. Definity Lot Number: [id number]. INDICATIONS: Hypotension. FINDINGS: Left Ventricle: Normal left ventricular cavity size. Left ventriclevisually appears to be low normal function. The Ejection Fraction is visually estimated to be54 %. Diastolic Function Mitral inflow pattern is Normal and E to E' ratio is >15suggesting a high pulmonary wedge pressure and LV diastolic dysfunction. No Thrombus notedin Left Ventricle. Regional Wall Motion: There is hypokinesis in the basal posteriorsegment. Right Ventricle: Right ventricular dilatation. Normal right ventricularsystolic function. Left Atrium: Mildly dilated left atrium. Right Atrium: Mildly dilated right atrium. Atrial Septum: The interatrial septum is normal in appearance. Mitral Valve: Moderate mitral annular calcification. There is mild mitralvalve regurgitation. No mitral valve stenosis. Aortic Valve: The mean transaortic gradient is 31 mmHg. A mechanicalprosthetic valve is present in the aortic position. The aortic prosthesis demonstrates amildly increased transvalvular gradient for valve type and size. This is suggestive of mildprosthetic aortic stenosis. Tricuspid Valve: The tricuspid valve demonstrates normal leafletstructure. There is mild tricuspid regurgitation. Pulmonic Valve: Pulmonic Valve not well visualized due to poor echowindows. Pericardium: No pericardial effusion. Aorta: Normal aortic root. IVC: IVC has blunted respirophasic collapse. IVC is dilated. The estimated RA pressure is 10-15 mmHg. CONCLUSIONS: 1. Left ventricle visually appears to be low normal function. The EjectionFraction is visually estimated to be 54 %. 2. Aortic valve. Probably mechanical. Mean prosthetic valve gradient 31 mmof mercury which is mildly increased. There was no transvalvular or paravalvularleak. 3. Elevated right atrial pressure. MEASUREMENTS: 2D/MM Value Range DopplerValue LVIDd 2D 5.30 cm [ 3.50 - 5.70 ] AV Peak Vel3.58 m/s LVIDs 2D 4.00 cm [ 3.10 - 4.60 ] AV Peak PG51.27 mmHg IVSd 2D 1.00 cm [ 0.60 - 1.20 ] AV Mean PG31.00 mmHg LVPWd 2D 1.40 cm [ 0.60 - 1.10 ] AV VTI90.80 cm LV Thickness Ratio 0.71 LVOT PeakVel 1.60 m/s LV Mass 2D 261.33 g LVOT Peak PG10.24 mmHg LV Mass Index 2D 139.75 g/m2 LVOT Mean PG6.00 mmHg RWT 0.53 LVOT VTI38.30 cm EDV Mod BP 133.00 ml [ 62.00 - 150.00 ] LVOT/AV VTI0.42 - Dimensionless index (DVI) LV EDV Index 71.12 ml/m2 MV E PeakVel 1.41 m/s ESV Mod BP 36.80 ml [ 21.00 - 61.00 ] MV A PeakVel 1.04 m/s EF Mod BP 72 % [ 52 - 72 ] MV E/A1.40 ratio Visually Estimated EF 54 % MV DecelTime 164.00 msec LA Dimension 2D 4.90 cm [ 1.90 - 4.00 ] Med E` Vel0.06 m/s LA Length 2C 6.15 cm Lat E` Vel0.11 m/s LA Length 4C 4.19 cm Average E/E`1658.82 RVDd 2D 3.30 cm [ 2.00 - 3.00 ] RV S`0.11 m/s TAPSE 2.04 cm [ 1.71 - 5.00 ] TR Peak Vel2.87 m/s RA Volume 53.90 ml TR Peak PG32.9 mmHg RA Volume Index 28.82 ml/m2 PV Peak Vel0.79 m/s PV Peak PG 2.50 mmHg - ATTESTATION: I have reviewed and interpreted the pertinent images and measurements ofthis study. I attest to the conclusions in the final report that is provided above. DISCLAIMER: The study images and the final report will be retained in the patientchart by the [facility] Laboratory for the legally required time period. This chart constitutesthe legal record of any testing performed. Electronically Signed By: Sultan Shauna GAR 10/28/2024 4:08:57 PM CDT us Patience Barnett NP CV ECHO PROCEDURES Final Res ult * eGFR (10/28/2024 6:33 AM CDT) eGFR 78 >=60 mL/min/1. 73 m2 Comment: Interpretive Data Reference Interval Normal >/= 90 mL/min/1.73m2 Mildly decreased* 60 - 89 mL/min/1.73m2 Mildly to moderately decreased 45 - 59 mL/min/1.73m2 Moderately to severely decreased 30 - 44 mL/min/1.73m2 Severely decreased 15 - 29 mL/min/1.73m2 Kidney Failure < 15 mL/min/1.73m2 *Relative to young adult level Estimated glomerular filtration rate is determined by the 2020 CKD-EPI equation recommended by the National Kid[employer] (A Unifying Approach to GFR Estimation: Recommendations of the NKF-ASK Task Force on Reassessing the Inclusion of Race in Diagnosing Kidney Disease, JASN 2020). The CKD-EPI equation should not be used for patients with unstable renal function and has not been validated in children and those over 70. Current interpretive data was last reviewed 2020. Testing performed by: [address] [address] Blood 10/28/2024 6:33 AM CDT 10/28/2024 6:42 AM CDT us Patience Barnett NP LAB BLOOD ORDERABLES Final R esult [place] [address] [facility] Department [place] [address] * (ABNORMAL) Differential, auto (10/28/2024 6:33 AM CDT) Neutrophil abs 9.32(H) 1.50 - 6.50 K/cumm Comment:Testing performed by : [address] [address] Imm gran abs 0.07 0.00 - 0.10 K/cumm [place] Comment:Testing performed by : [address] [address] Lymphocyte abs 1.02 0.80 - 3.30 K/cumm LEX Comment:Testing performed by : [address] [address] Monocyte abs 0.47 0.20 - 0.80 K/cumm LEX Comment:Testing performed by : [address], [place]., [address] Eosinophil abs 0.14 0.00 - 0.50 K/cumm [facility] Comment:Testing performed by : [address], [place]., [address] Basophil abs 0.05 0.00 - 0.10 K/cumm [facility] Comment:Testing performed by : [address] [address] Neutrophil pct 84.2 % [facility] Comment: Interpretive Data Percent cell count reference ranges are not reported, since discordance with absolute values may lead to misinterpretation of CBC data. Current Interpretive Data was last revised on 2017. Testing performed by: [address] [address] Imm gran pct 0.6 % [facility] Comment: Interpretive Data Percent cell count reference ranges are not reported, since discordance with absolute values may lead to misinterpretation of CBC data. Current Interpretive Data was last revised on 2017. Testing performed by: [address] [address] Lymphocyte pct 9.2 % [facility] Comment: Interpretive Data Percent cell count reference ranges are not reported, since discordance with absolute values may lead to misinterpretation of CBC data. Current Interpretive Data was last revised on 2017. Testing performed by: [address] [address] Monocyte pct 4.2 % [facility] Comment: Interpretive Data Percent cell count reference ranges are not reported, since discordance with absolute values may lead to misinterpretation of CBC data. Current Interpretive Data was last revised on 2017. Testing performed by: [address] [address] Eosinophil pct 1.3 % [facility] Comment: Interpretive Data Percent cell count reference ranges are not reported, since discordance with absolute values may lead to misinterpretation of CBC data. Current Interpretive Data was last revised on 2017. Testing performed by: [address] [address] Basophil pct 0.5 % [place] Comment: Interpretive Data Percent cell count reference ranges are not reported, since discordance with absolute values may lead to misinterpretation of CBC data. Current Interpretive Data was last revised on 2017. Testing performed by: [address] [address] Blood 10/28/2024 6:33 AM CDT 10/28/2024 6:43 AM CDT us Patience Barnett NP LAB BLOOD ORDERABLES Final R esult [place] [address] [facility] Department [place] [address] * (ABNORMAL) CBC with auto differential (10/28/2024 6:33 AM CDT) WBC 11.07(H) 3.80 - 9.90 K/cumm Comment:Testing performed by : [address] [address] Hgb 9.7(L) 13.0 - 17.5 g/dL [place] Comment:Testing performed by : [address] [address] Hct 30.4(L) 38.9 - 50.3 % [place] Comment:Testing performed by : [address] [address] Plt 231 150 - 400 K/cumm [place] Comment:Testing performed by : [address] [address] MPV 9.8 9.1 - 12.3 fL [place] Comment:Testing performed by : [address] [address] RBC 3.81(L) 4.30 - 5.80 M/cumm [place] Comment:Testing performed by : [address] [address] MCV 79.8(L) 81.3 - 96.4 fL LEX Comment:Testing performed by : [address] [address] MCH 25.5(L) 27.1 - 33.3 pg [place] Comment:Testing performed by : [address] [address] MCHC 31.9(L) 32.3 - 35.7 g/dL LEX Comment:Testing performed by : [address], [address] RDW CV 15.1(H) 11.1 - 14.9 % LEX Comment:Testing performed by : [address], [address] RDW SD 43.9 35.7 - 48.1 fL LEX Comment:Testing performed by : [address], [address] NRBC abs 0.00 0.00 - 0.01 K/cumm LEX Comment:Testing performed by : [address], [address] Blood 10/28/2024 6:33 AM CDT 10/28/2024 6:43 AM CDT us Patience Barnett SALES PROMOTION COORDINATOR LAB BLOOD ORDERABLES Final R esult [facility] [address] [facility] [place] [address] * (ABNORMAL) Vancomycin level trough (10/28/2024 6:33 AM CDT) Pathologist [facility] Vancomycin trough 5.6(L) 10.0 - 20.0 mcg/mL Comment:Testing performed by : [address], [address] Blood 10/28/2024 6:33 AM CDT 10/28/2024 6:42 AM CDT us Garrett Merrill DO LAB BLOOD ORDERABLES Reny l Result LEX [address] [facility] [place] [address] * (ABNORMAL) Comprehensive metabolic panel (10/28/2024 6:33 AM CDT) Sodium 137 135 - 145 mmol/L Comment:Testing performed by : [address] [address] Potassium, pl 3.9 3.3 - 4.9 mmol/L LEX Comment:Testing performed by : [address] [address] Chloride 110 97 - 110 mmol/L LEX Comment:Testing performed by : [address] [address] CO2 20(L) 22 - 32 mmol/L LEX Comment:Testing performed by : [address] [address] Anion gap 7 2 - 15 mmol/L LEX Comment:Testing performed by : [address] [address] BUN 19 6 - 25 mg/dL LEX Comment:Testing performed by : [address] [address] Creatinine 0.99 0.80 - 1.30 mg/dL LEX Comment:Testing performed by : [address] [address] Glucose 154 70 - 199 mg/dL LEX Comment: Interpretive Data Fasting glucose >/= 126 mg/dl is diagnostic for diabetes. Fasting is defined as no caloric intake for at least 8 hours. Fasting glucose between 100 mg/dl to 125 mg/dl is diagnostic of prediabetes. In a patient with classic symptoms of hyperglycemia or hyperglycemic crisis, a random glucose >/= 200 mg/dl is diagnostic for diabetes. In the absence of unequivocal hyperglycemia, results should be confirmed by repeat testing. The classification and Diagnosis of Diabetes Diabetes Care 202; 46: S19-S40. Current interpretive data was last revised 2022. Testing performed by: [address] [address] Calcium 8.5 8.5 - 10.3 mg/dL LEX Comment:Testing performed by : [address] [address] Bilirubin, total 0.7 0.1 - 1.2 mg/dL LEX Comment:Testing performed by : [address] [address] Protein, pl 5.5(L) 6.5 - 8.5 g/dL LEX Comment:Testing performed by : [address] [address] Albumin 2.4(L) 3.5 - 5.0 g/dL LEX Comment:Testing performed by : [address] [address] Alk phos 75 40 - 130 Units/L LEX Comment:Testing performed by : [address] [address] ALT 5(L) 7 - 55 Units/L LEX Comment:Testing performed by : [address] [address] AST 10 10 - 50 Units/L [facility] Comment:Testing performed by : [address] [address] Blood 10/28/2024 6:33 AM CDT 10/28/2024 6:42 AM CDT Patience Barnett NP LAB BLOOD ORDERABLES Final R esult LEX [address] [facility] Department of Laboratories [place], [place] [id number] * POCT glucose (10/27/2024 7:34 PM CDT) [facility] Signature Glucose, POC 180 70 - 199 mg/dL Comment:Testing performed by : [address] [address] Blood 10/27/2024 7:34 PM CDT 10/27/2024 7:34 PM CDT us Fitnet Deisrae DO LAB POCT ORDERABLES - DEV ICE Final Result Performing Organization Address [facility] Co de Phone Number LEX [address] [facility] [place] [address] * POCT glucose (10/27/2024 5:01 PM CDT) Glucose, POC 183 70 - 199 mg/dL Comment:Testing performed by : [address] [address] Glucose comment 1 RN/MD Notified LEX SILVESTRE Comment:Testing performed by : [address] [address] Glucose comment 2 Follow Protocol LEX Comment:Testing performed by : [address] [address] Blood 10/27/2024 5:01 PM CDT 10/27/2024 5:01 PM CDT Starfish 360 DO LAB POCT ORDERABLES - DEV ICE Final Result Performing Organization Address [facility] Co de Phone Number LEX [address] [facility] [place] [address] * POCT glucose (10/27/2024 11:31 AM CDT) Glucose, POC 199 70 - 199 mg/dL Comment:Testing performed by : [address] [address] Glucose comment 1 RN/MD Notified LEX Comment:Testing performed by : [address] [address] Glucose comment 2 Follow Protocol LEX Comment:Testing performed by : [address] [address] Blood 10/27/2024 11:3 1 AM CDT 10/27/2024 11:31 AM CDT us Fitnet Desirae DO LAB POCT ORDERABLES - DEV ICE Final Result Performing Organization Address [facility] Co de Phone Number LEX [facility] [place] [address] * (ABNORMAL) Lactate (10/27/2024 10:03 AM CDT) Lactate 2.2(H) 0.7 - 2.0 mmol/L Comment:Testing performed by : [address] [address] Blood 10/27/2024 10:0 3 AM CDT 10/27/2024 10:15 AM CDT Patience Barnett NP LAB BLOOD ORDERABLES Final R esult Performing Organization Address [facility] Co de Phone Number LEX [facility] [place] [address] * eGFR (10/27/2024 10:03 AM CDT) eGFR 74 >=60 mL/min/1. 73 m2 Comment: Interpretive Data Reference Interval Normal >/= 90 mL/min/1.73m2 Mildly decreased* 60 - 89 mL/min/1.73m2 Mildly to moderately decreased 45 - 59 mL/min/1.73m2 Moderately to severely decreased 30 - 44 mL/min/1.73m2 Severely decreased 15 - 29 mL/min/1.73m2 Kidney Failure < 15 mL/min/1.73m2 *Relative to young adult level Estimated glomerular filtration rate is determined by the 2020 CKD-EPI equation recommended by the National Kid[employer] (A Unifying Approach to GFR Estimation: Recommendations of the NKF-ASK Task Force on Reassessing the Inclusion of Race in Diagnosing Kidney Disease, JASN 2020). The CKD-EPI equation should not be used for patients with unstable renal function and has not been validated in children and those over 70. Current interpretive data was last reviewed 2020. Testing performed by: [address] [address] Blood 10/27/2024 10:0 3 AM CDT 10/27/2024 10:16 AM CDT us Patience Chackooft SALES PROMOTION COORDINATOR LAB BLOOD ORDERABLES Final R esult LEX [address] [facility] Department [place] [address] * (ABNORMAL) Differential, auto (10/27/2024 10:03 AM CDT) Neutrophil abs 14.47(H) 1.50 - 6.50 K/cumm Comment:Testing performed by : [address] [address] Imm gran abs 0.12(H) 0.00 - 0.10 K/cumm LEX Comment:Testing performed by : [address] [address] Lymphocyte abs 1.70 0.80 - 3.30 K/cumm LEX Comment:Testing performed by : [address] [address] Monocyte abs 0.62 0.20 - 0.80 K/cumm LEX Comment:Testing performed by : [address] [address] Eosinophil abs 0.05 0.00 - 0.50 K/cumm ELX Comment:Testing performed by : [address] [address] Basophil abs 0.09 0.00 - 0.10 K/cumm LEX Comment:Testing performed by : [address] [address] Neutrophil pct 84.9 % LEX Comment: Interpretive Data Percent cell count reference ranges are not reported, since discordance with absolute values may lead to misinterpretation of CBC data. Current Interpretive Data was last revised on 2017. Testing performed by: [address] [address] Imm gran pct 0.7 % LEX Comment: Interpretive Data Percent cell count reference ranges are not reported, since discordance with absolute values may lead to misinterpretation of CBC data. Current Interpretive Data was last revised on 2017. Testing performed by: [address] [address] Lymphocyte pct 10.0 % [facility] Comment: Interpretive Data Percent cell count reference ranges are not reported, since discordance with absolute values may lead to misinterpretation of CBC data. Current Interpretive Data was last revised on 2017. Testing performed by: [address] [address] Monocyte pct 3.6 % [facility] Comment: Interpretive Data Percent cell count reference ranges are not reported, since discordance with absolute values may lead to misinterpretation of CBC data. Current Interpretive Data was last revised on 2017. Testing performed by: [address] [address] Eosinophil pct 0.3 % [facility] Comment: Interpretive Data Percent cell count reference ranges are not reported, since discordance with absolute values may lead to misinterpretation of CBC data. Current Interpretive Data was last revised on 2017. Testing performed by: [address] [address] Basophil pct 0.5 % [facility] Comment: Interpretive Data Percent cell count reference ranges are not reported, since discordance with absolute values may lead to misinterpretation of CBC data. Current Interpretive Data was last revised on 2017. Testing performed by: [address] [address] Blood 10/27/2024 10:0 3 AM CDT 10/27/2024 10:15 AM CDT us Patience Barnett SALES PROMOTION COORDINATOR LAB BLOOD ORDERABLES Final R esult LEX [address] [facility] Department [place] [address] * (ABNORMAL) Iron profile w/ IBC (10/27/2024 10:03 AM CDT) Iron 12(L) 50 - 150 mcg/dL Comment:Testing performed by : [address] [address] TIBC 204(L) 250 - 400 mcg/dL LEX Comment:Testing performed by : [address] [address] Transferrin saturation 6(L) 20 - 50 % LEX SILVESTRE Comment:Testing performed by : [address] [address] Blood 10/27/2024 10:0 3 AM CDT 10/27/2024 10:16 AM CDT us Patience Barnett NP LAB BLOOD ORDERABLES Final R esult LEX [address] [facility] Department of Laboratories [place], [place] [id number] * (ABNORMAL) CBC with auto differential (10/27/2024 10:03 AM CDT) WBC 17.05(H) 3.80 - 9.90 K/cumm Comment:Testing performed by : [address] [address] Hgb 12.0(L) 13.0 - 17.5 g/dL LEX SILVESTRE Comment:Testing performed by : [address] [address] Hct 37.7(L) 38.9 - 50.3 % LEX SILVESTRE Comment:Testing performed by : [address] [address] Plt 241 150 - 400 K/cumm LEX Comment:Testing performed by : [address] [address] MPV 9.7 9.1 - 12.3 fL LEX SILVESTRE Comment:Testing performed by : [address] [address] RBC 4.52 4.30 - 5.80 M/cumm LEX SILVESTRE Comment:Testing performed by : [address] [address] MCV 83.4 81.3 - 96.4 fL LEX SILVESTRE Comment:Testing performed by : [address] [address] MCH 26.5(L) 27.1 - 33.3 pg LEX SILVESTRE Comment:Testing performed by : [address] [address] MCHC 31.8(L) 32.3 - 35.7 g/dL LEX SILVESTRE Comment:Testing performed by : [address] [address] RDW CV 15.3(H) 11.1 - 14.9 % LEX SILVESTRE Comment:Testing performed by : [address] [address] RDW SD 45.6 35.7 - 48.1 fL LEX SILVESTRE Comment:Testing performed by : [address] [address] NRBC abs 0.00 0.00 - 0.01 K/cumm LEX Comment:Testing performed by : [address], [address] Blood 10/27/2024 10:0 3 AM CDT 10/27/2024 10:15 AM CDT Patience Summer Shade SALES PROMOTION COORDINATOR LAB BLOOD ORDERABLES Final R esult Performing Organization Address City/[facility] Co de Phone Number [address] [place] [address] * Magnesium (10/27/2024 10:03 AM CDT) Magnesium 1.7 1.4 - 2.5 mg/dL Comment:Testing performed by : [address] [address] Blood 10/27/2024 10:0 3 AM CDT 10/27/2024 10:16 AM CDT Patience Summer Shade SALES PROMOTION COORDINATOR LAB BLOOD ORDERABLES Final R esult Performing Organization Address City/[facility]/ZIP Co de Phone Number [address] [place] [address] * (ABNORMAL) Comprehensive metabolic panel (10/27/2024 10:03 AM CDT) Sodium 141 135 - 145 mmol/L Comment:Testing performed by : [address] [address] Potassium, pl 4.0 3.3 - 4.9 mmol/L LEX Comment:Testing performed by : [address] [address] Chloride 113(H) 97 - 110 mmol/L LEX Comment:Testing performed by : [address], [place]., [address] CO2 20(L) 22 - 32 mmol/L LEX Comment:Testing performed by : [address] [address] Anion gap 8 2 - 15 mmol/L LEX Comment:Testing performed by : [address] [address] BUN 18 6 - 25 mg/dL LEX Comment:Testing performed by : [address] [address] Creatinine 1.04 0.80 - 1.30 mg/dL LEX Comment:Testing performed by : [address] [address] Glucose 123 70 - 199 mg/dL LEX Comment: Delta - Results Reviewed Interpretive Data Fasting glucose >/= 126 mg/dl is diagnostic for diabetes. Fasting is defined as no caloric intake for at least 8 hours. Fasting glucose between 100 mg/dl to 125 mg/dl is diagnostic of prediabetes. In a patient with classic symptoms of hyperglycemia or hyperglycemic crisis, a random glucose >/= 200 mg/dl is diagnostic for diabetes. In the absence of unequivocal hyperglycemia, results should be confirmed by repeat testing. The classification and Diagnosis of Diabetes Diabetes Care 2021; 46: S19-S40. Current interpretive data was last revised 2022. Testing performed by: [address] [address] Calcium 8.6 8.5 - 10.3 mg/dL LEX Comment:Testing performed by : [address] [address] Bilirubin, total 0.9 0.1 - 1.2 mg/dL LEX SILVESTRE Comment:Testing performed by : [address] [address] Protein, pl 6.2(L) 6.5 - 8.5 g/dL LEX SILVESTRE Comment:Testing performed by : [address] [address] Albumin 2.8(L) 3.5 - 5.0 g/dL LEX Comment:Testing performed by : [address] [address] Alk phos 95 40 - 130 Units/L LEX Comment:Testing performed by : [address] [address] ALT 5(L) 7 - 55 Units/L LEX Comment:Testing performed by : [address] [address] AST 12 10 - 50 Units/L LEX Comment:Testing performed by : [address] [address] Blood 10/27/2024 10:0 3 AM CDT 10/27/2024 10:16 AM CDT us Patience Barnett NP LAB BLOOD ORDERABLES Final R esult LEX [address] [facility] Department [place] [address] * POCT glucose (10/27/2024 7:54 AM CDT) Glucose, POC 128 70 - 199 mg/dL Comment:Testing performed by : [address] [address] Glucose comment 1 RN/MD Notified LEX SILVESTRE Comment:Testing performed by : [address] [address] Glucose comment 2 Follow Protocol LEX Comment:Testing performed by : [address] [address] Blood 10/27/2024 7:54 AM CDT 10/27/2024 7:54 AM CDT Garrett Nikhil Desirae DO LAB POCT ORDERABLES - DEV ICE Final Result Performing Organization Address [facility] Co de Phone Number LEX [address] [place] [address] * (ABNORMAL) Sepsis Lactate w/ Reflex (10/26/2024 8:33 PM CDT) Pathologist [facility] Sepsis Lactate 3.9(H) 0.7 - 2.0 mmol/L Comment:Testing performed by : [address] [address] Blood 10/26/2024 8:33 PM CDT 10/26/2024 8:41 PM CDT Katie Mason MD LAB BLOOD ORDERABLES F inal Result Performing Organization Address [facility] Co de Phone Number LEX [address] [address] * POCT glucose (10/26/2024 7:11 PM CDT) [facility] Glucose, POC 189 70 - 199 mg/dL Comment:Testing performed by : [address] [address] Blood 10/26/2024 7:11 PM CDT 10/26/2024 7:11 PM CDT Garrett Merrill DO LAB POCT ORDERABLES - DEV ICE Final Result Performing Organization Address [facility] Co de Phone Number LEX [address] [address] * (ABNORMAL) Sepsis Lactate w/ Reflex (10/26/2024 5:37 PM CDT) Pathologist [facility] Sepsis Lactate 2.4(H) 0.7 - 2.0 mmol/L Comment:Testing performed by : [address] [address] Blood 10/26/2024 5:37 PM CDT 10/26/2024 5:48 PM CDT us Katie Mason MD LAB BLOOD ORDERABLES F inal Result [facility] [address] [facility] Department of Laboratories [place], [place] [id number] * (ABNORMAL) Urinalysis reflex to microscopic and culture Urine (10/26/2024 4:43 PM CDT) Color, ur Yellow Yellow Comment:Testing performed by : [address] [address] Clarity, ur Clear Clear LEX Comment:Testing performed by : [address] [address] Specific gravity, ur >1.050(A) 1.003 - 1.030 LEX Comment:Testing performed by : [address] [address] pH, urine 5.5 LEX Comment: Interpretive Data U rine pH is affected by diet, medications, systemic acid-base disturbances, and renal tubular function. pH may affect urinary stone formation. For example, urine pH below 6.0 may help reduce the tendency for calcium phosphate stones and pH greater than 6.0 may reduce the tendency for uric acid stone formation. Source: [facility] [place] Current Interpretive Data was last revised on 2017 Testing performed by: [address] [address] Protein, ur ql Trace(A) Negative LEX Comment:Testing performed by : [address] [address] Glucose, ur ql 2+(A) Negative LEX Comment:Testing performed by : [address] [address] Ketones, ur Negative Negative LEX Comment:Testing performed by : [address] [address] Bilirubin, ur Negative Negative LEX SILVESTRE Comment:Testing performed by : [address], [place]., [address] Blood, ur Negative Negative LEX SILVESTRE Comment:Testing performed by : [address], [place]., [address] Urobilinogen, ur <2.0 <2.0 mg/dL LEX SILVESTRE Comment:Testing performed by : [address], [place]., [address] Nitrite, ur Negative Negative LEX SILVESTRE Comment:Testing performed by : [address], [place]., [address] Leukocyte esterase, ur Negative Negative LEX SILVESTRE Comment:Testing performed by : [address], [place]., [address] UA reflex comment Reflex to microscopic UA will be performed. LEX SILVESTRE Comment:Testing performed by : [address], [place]., [address] Urine 10/26/2024 4:43 PM CDT 10/26/2024 4:52 PM CDT us Katie Mason MD LAB MICROBIOLOGY - GEN ERAL ORDERABLES Final Result LEX SIL[place]STRE [address] [facility] Department of Laboratories [place], [place] [phone] * (ABNORMAL) Urinalysis, microscopic only (10/26/2024 4:43 PM CDT) WBC, ur 0-5 0 - 5 /HPF Comment:Testing performed by : [address] [address] RBC, ur 0-2 0 - 2 /HPF LEX SILVESTRE Comment:Testing performed by : [address] [address] Epithelial cells, squamous, ur 1-5 0 - 5 /HPF LEX SILVESTRE Comment:Testing performed by : [address], [place]., [address] Mucous, ur Present(A) LEX SILVESTRE Comment:Testing performed by : [address], [place]., [address] Culture Reflex Comment Reflex conditions for urine culture (WBC >10) not met. LEX Comment:Testing performed by : [address] [address] Urine 10/26/2024 4:43 PM CDT 10/26/2024 4:52 PM CDT Katie Mason MD LAB URINE ORDERABLES F inal Result Performing Organization Address City/[facility] Co de Phone Number LEX [address] [facility] [place] [address] * Troponin T high-sensitivity 2-hour (10/26/2024 4:05 PM CDT) Pathologist [facility] Trop T hs 16 <=22 ng/L Comment: Interpretive Data For further hscTnT resources including the diagnostic algorithm and an aid in interpretation, copy and paste this link: https://nrl.testcatalog.org/show/hsTrop Current Interpretive Data last revised 2019. Testing performed by: [address] [address] Trop T hs delta -2 ng/L LEX Comment:Testing performed by : [address] [address] Trop T hs interp Insignificant LEX Comment:Testing performed by : [address] [address] Blood 10/26/2024 4:05 PM CDT 10/26/2024 4:12 PM CDT Katie Mason MD LAB BLOOD ORDERABLES F inal Result Performing Organization Address City/[facility] Co de Phone Number LEX [address] [facility] [employer] [place], [place] [phone] * (ABNORMAL) Lipase (10/26/2024 4:05 PM CDT) Pathologist [facility] Lipase 9(L) 10 - 99 Units/L Comment:Testing performed by : [address] [place] [address] Blood 10/26/2024 4:05 PM CDT 10/26/2024 4:12 PM CDT us Katie Mason MD LAB BLOOD ORDERABLES F inal Result LEX [facility] Department [place] [address] * CT Chest Abdomen Pelvis W Contrast (10/26/2024 3:05 PM CDT) Anatomical Region Laterality Modality Body N/A Computed Tomogra phy 10/26/2024 3:29 PM CDT Narrative 10/26/2024 3:40 PM CDT EXAM DESCRIPTION: CT CHEST ABDOMEN PELVIS W CONTRAST REASON FOR STUDY: Sepsis Pt arrives via EMS from the roadside for c/o nausea and vomiting. Per EMS pt has been sick with nausea and vomiting x2-3 days. Per EMS pt was warm to touch at scene but not so much right not. Per EMS pt and his were on the way to this facility to be seen when they pulled to the side of the road and the patient threw up. EMS administered 4mg Zofran IV and 50mL LR IV en route. Pt said his nausea and vomiting worsened today and per family he has not been eating or drinking well the last day. Per EMS pt has hx of a-fib and HTN TECHNIQUE: CT scan of the chest, abdomen, and pelvis performed with intravenous and without oral contrast using helical scanning technique with dynamic intravenous contrast injection. Reconstructed coronal and sagittal MPR images reviewed. All images stored on PACS. Automated exposure control was used as a dose optimization technique for this examination. CONTRAST TYPE/DOSE: 100mL of IOVERSOL 350 MG IODINE/ML INTRAVENOUS SYRINGE injected via intravenous COMPARISON: 02/23/2024 FINDINGS: CHEST LUNGS: Emphysematous changes are present. There is stable scarring in the left lung apex. There are coarse infiltrates within the left lung base which are improved from the prior examination. Previously seen left basilar consolidation has resolved. PLEURA: Previously seen left pleural effusion and fluid in the major fissure have resolved. MEDIASTINUM/CLIFTON: No identified masses or abnormal nodes. HEART: Heart size is normal with no pericardial effusion. VASCULATURE CHEST: Atheromatous disease of the aorta with coronary artery calcification. No aneurysms of the aorta. AXILLA: No adenopathy. CHEST WALL: No masses. No subcutaneous air. HARDWARE/LINES/TUBES: None. MUSCULOSKELETAL CHEST: No significant abnormality. ABDOMEN/PELVIS LIVER: Normal size. No identified cystic or solid masses. GALLBLADDER: Cholelithiasis. BILE DUCTS: No intrahepatic or extrahepatic ductal dilatation. SPLEEN: There is a stable hypodense partially calcified lesion in the spleen, likely related to prior trauma or infarction. PANCREAS: No identified cystic or solid masses. No significant calcifications. No adjacent inflammation or peripancreatic fluid collections. Pancreatic duct not dilated. ADRENALS: Normal. KIDNEYS/URINARY TRACT: Bilateral renal hypodensities are most likely cysts. No visualized stones. No hydronephrosis or hydroureter. Symmetric enhancement. There are layering stones within the bladder. GI: No dilated bowel loops. No obvious wall thickening. Normal appendix. Scattered diverticular disease without diverticulitis. There is stool within the colon. PERITONEUM: No ascites or free air. RETROPERITONEUM: No mass or adenopathy. REPRODUCTIVE: No significant abnormality. VASCULATURE ABDOMEN: Atherosclerotic disease in the aorta, aortic branches, and iliacs, MUSCULOSKELETAL ABDOMEN PELVIS: No acute finding. OTHER: No significant abnormality. IMPRESSION: 1. Emphysema. 2. Improved left basilar infiltrates and resolution of the previously seen left pleural effusion. 3. Cholelithiasis. 4. Diverticulosis. 5. Colonic stool may be consistent with constipation. 6. Bladder stones. 7. Additional findings as above. THIS IS AN ELECTRONICALLY VERIFIED FINAL REPORT 10/26/2024 3:40 PM - Electronically signed by Talya Brooke M.D. LL: TEX Report ID: [id number] Reading Location: [id number] Procedure Note Talya Brooke MD - 10/26/2024 EXAM DESCRIPTION: CT CHEST ABDOMEN PELVIS W CONTRAST REASON FOR STUDY: Sepsis Pt arrives via EMS from the roadside for c/o nausea and vomiting. Per EMSpt has been sick with nausea and vomiting x2-3 days. Per EMS pt was warm totouch at scene but not so much right not. Per EMS pt and his were on theway to this facility to be seen when they pulled to the side of the road andthe patient threw up. EMS administered 4mg Zofran IV and 50mL LR IV en route.Pt said his nausea and vomiting worsened today and per family he has not been eating or drinking well the last day. Per EMS pt has hx of a-fib and HTN TECHNIQUE: CT scan of the chest, abdomen, and pelvis performed with intravenous and without oral contrast using helical scanning techniquewith dynamic intravenous contrast injection. Reconstructed coronal and sagittalMPR images reviewed. All images stored on PACS. Automated exposure control was used as a dose optimization technique for this examination. CONTRAST TYPE/DOSE: 100mL of IOVERSOL 350 MG IODINE/ML INTRAVENOUS SYRINGE injected via intravenous COMPARISON: 02/23/2024 FINDINGS: CHEST LUNGS: Emphysematous changes are present. There is stable scarring inthe left lung apex. There are coarse infiltrates within the left lung basewhich are improved from the prior examination. Previously seen left basilar consolidation has resolved. PLEURA: Previously seen left pleural effusion and fluid in the majorfissure have resolved. MEDIASTINUM/CLIFTON: No identified masses or abnormal nodes. HEART: Heart size is normal with no pericardial effusion. VASCULATURE CHEST: Atheromatous disease of the aorta with coronaryartery calcification. No aneurysms of the aorta. AXILLA: No adenopathy. CHEST WALL: No masses. No subcutaneous air. HARDWARE/LINES/TUBES: None. MUSCULOSKELETAL CHEST: No significant abnormality. ABDOMEN/PELVIS LIVER: Normal size. No identified cystic or solid masses. GALLBLADDER: Cholelithiasis. BILE DUCTS: No intrahepatic or extrahepatic ductal dilatation. SPLEEN: There is a stable hypodense partially calcified lesion in the spleen, likely related to prior trauma or infarction. PANCREAS: No identified cystic or solid masses. No significant calcifications. No adjacent inflammation or peripancreatic fluidcollections. Pancreatic duct not dilated. ADRENALS: Normal. KIDNEYS/URINARY TRACT: Bilateral renal hypodensities are most likelycysts. No visualized stones. No hydronephrosis or hydroureter. Symmetricenhancement. There are layering stones within the bladder. GI: No dilated bowel loops. No obvious wall thickening. Normal appendix. Scattered diverticular disease without diverticulitis. There is stoolwithin the colon. PERITONEUM: No ascites or free air. RETROPERITONEUM: No mass or adenopathy. REPRODUCTIVE: No significant abnormality. VASCULATURE ABDOMEN: Atherosclerotic disease in the aorta, aorticbranches, and iliacs, MUSCULOSKELETAL ABDOMEN PELVIS: No acute finding. OTHER: No significant abnormality. IMPRESSION: 1. Emphysema. 2. Improved left basilar infiltrates and resolution of the previouslyseen left pleural effusion. 3. Cholelithiasis. 4. Diverticulosis. 5. Colonic stool may be consistent with constipation. 6. Bladder stones. 7. Additional findings as above. THIS IS AN ELECTRONICALLY VERIFIED FINAL REPORT 10/26/2024 3:40 PM - Electronically signed by Talya Brooke M.D. LL: LL Report ID: [id number] Reading Location: [place] [address] Katie Mason MD IMG CT PROCEDURES Reny l Result * (ABNORMAL) Blood culture Blood Peripheral (10/26/2024 2:57 PM CDT) Pathologist [facility] Direct Specimen Exam Molecular Analysis: Presumptive Streptococcus pneumoniae detected by annie ePlex BCID-GP panel. Please consider this result in the context of clinical findings and the final, culture-based result. This test does not exclude the possibility of a mixed bacterial infection. Notification of: Presumptive Streptococcus pneumoniae called to and read back by: Bertha Avelar MLS ([phone]) on 10/27/2024 07:29:31 by: Miriam Ponce MT Comment:Testing performed by : [facility], [address] [facility] [place]., [address] Direct Specimen Exam Stain: Gram Positive Cocci in pairs and chains Time to culture positivity (aerobic media): 10.7 hours Time to culture positivity (anaerobic media): 11.6 hours Notification of: Gram Positive Cocci in pairs and chains called to and read back by: Fela Mclean PILLOW AGENT [phone] on 10/27/2024 05:31:06 by: Sarabjit Lan MT Test result called to and read back by [id number] on 10/27/2024 05:34:24 by [id number] LEX SILVESTRE Comment:Testing performed by : [facility], [address] [place]., [address] Report Final Report: Streptococcus pneumoniae Moxifloxacin susceptibility results can be inferred from gatifloxacin susceptibility testing. (.) LEX SILVESTRE Comment:Testing performed by : [facility], [address] [place]., [address] Organism STREPTOCOCCUS PNEUMONIAE LEX Blood (Peripheral) 10/26/2024 2:57 PM CDT 10/26/2024 6:13 PM CDT Narrative LEX - 10/31/2024 3:01 PM CDT From a different site than #1. Draw Blood cultures before administration of Antibiotics Collection->Peripheral 1. Blood cultures are incubated for 4 days on a continuously monitored blood culture system. The first report of a negative culture is issued within 24 hours of receipt of the specimen in the laboratory. 2. Positive culture results are reported as soon as they are detected. 3. The most important factor for detection of microbes in the setting of bloodstream infection is the volume of blood submitted for culture. Failure to collect an optimal blood volume can result in false negative blood cultures. 4. For pediatric patients, the recommended blood volume to collect follows a weight based strategy. See the electronic test catalog for collection instructions. 5. For positive blood cultures, a rapid molecular test may be performed for organism identification using the annie ePlex blood culture identification panel for gram positive (BCID-GP) and gram negative (BCID-GN) organisms. This nucleic acid amplification test detects microbial DNA in positive blood culture broth. This assay has been cleared by the [place] Food and Drug Administration and its performance characteristics have been verified by the [facility]. For questions about this culture, contact the Microbiology Laboratory at [phone]. Interpretive data was last revised on 23. Organism Antibiotic Method Susceptibility Streptococcus pneumoniae Gatifloxacin (ANCA) INTERPRETATION Susceptible Streptococcus pneumoniae Penicillin (ANCA) - meningitis (ANCA) INTERPRETATION <0.03 mcg/mL: Susceptible Streptococcus pneumoniae Penicillin (ANCA) - non-meningitis (ANCA) INTERPRETATION Susceptible Streptococcus pneumoniae Penicillin (ANCA) - oral (ANCA) INTERPRETATION Susceptible Streptococcus pneumoniae Azithromycin (ANCA) INTERPRETATION Susceptible Streptococcus pneumoniae Tetracycline (ANCA) INTERPRETATION Susceptible Streptococcus pneumoniae Trimethoprim with Sulfamethoxazole (ANCA) INTERPRETATION Susceptible Streptococcus pneumoniae Ceftriaxone(ANCA) - meningitis (ANCA) INTERPRETATION <0.25 mcg/mL: Susceptible Streptococcus pneumoniae Ceftriaxone (ANCA) - non-meningitis (ANCA) INTERPRETATION Susceptible Streptococcus pneumoniae Vancomycin (ANCA) INTERPRETATION Susceptible Katie Mason MD LAB MICROBIOLOGY - GEN ERAL ORDERABLES Final Result [facility] [address] [facility] Department [place] [address] * (ABNORMAL) Blood culture Blood Peripheral (10/26/2024 2:57 PM CDT) Direct Specimen Exam Stain: Gram Positive Cocci in pairs and chains Time to culture positivity (anaerobic media): 12.2 hours Comment:Testing performed by : [facility], [address] [place]., [address] Report Final Report: Streptococcus pneumoniae For susceptibility results, refer to accession number [id number] on the blood culture from 10/26/2024 (.) LEX SILVESTRE Comment:Testing performed by : [facility], [address] [place] [address]., [address] Organism STREPTOCOCCUS PNEUMONIAE LEX Blood (Peripheral) 10/26/2024 2:57 PM CDT 10/26/2024 6:13 PM CDT Narrative LEX SILVESTRE - 10/31/2024 1:18 PM CDT Draw Blood cultures before administration of Antibiotics Collection->Peripheral 1. Blood cultures are incubated for 4 days on a continuously monitored blood culture system. The first report of a negative culture is issued within 24 hours of receipt of the specimen in the laboratory. 2. Positive culture results are reported as soon as they are detected. 3. The most important factor for detection of microbes in the setting of bloodstream infection is the volume of blood submitted for culture. Failure to collect an optimal blood volume can result in false negative blood cultures. 4. For pediatric patients, the recommended blood volume to collect follows a weight based strategy. See the electronic test catalog for collection instructions. 5. For positive blood cultures, a rapid molecular test may be performed for organism identification using the annie ePlex blood culture identification panel for gram positive (BCID-GP) and gram negative (BCID-GN) organisms. This nucleic acid amplification test detects microbial DNA in positive blood culture broth. This assay has been cleared by the [place] Food and Drug Administration and its performance characteristics have been verified by the [facility]. For questions about this culture, contact the Microbiology Laboratory at [phone]. Interpretive data was last revised on 23. Katie Mason MD LAB MICROBIOLOGY - GEN ERAL ORDERABLES Final Result Performing Organization Address [facility] Co de Phone Number LEX [address] [place] [address] * aPTT (10/26/2024 2:57 PM CDT) aPTT 30 22 - 37 sec Comment: Interpretive data aPTT test has not been evaluated for monitoring heparin therapy. The anti-Xa is the preferred test. Current interpretive data was last revised on 2019. Testing performed by: [address] [address] Blood 10/26/2024 2:57 PM CDT 10/26/2024 3:02 PM CDT Katie Mason MD LAB BLOOD ORDERABLES F inal Result Performing Organization Address [facility] Co de Phone Number [facility] [address] [place] [address] * (ABNORMAL) Protime-INR (10/26/2024 2:57 PM CDT) PT 18.0(H) 12.0 - 14.6 sec Comment:Testing performed by : [address] [address] INR 1.5(H) 0.9 - 1.2 LEX Comment: Interpretive data Oral anticoagulant therapeutic ranges: Venous thromboembolism prophylaxis or treatment: 2.0-3.0 CARDIOLOGY Standard range: 2.0-3.0 High-intensity range: 2.5-3.5 Refer to indication-specific guidelines for appropriate target ranges for prosthetic heart valve replacement. Current interpretive data was last revised on 2019. Testing performed by: [address] [address] Blood 10/26/2024 2:57 PM CDT 10/26/2024 3:02 PM CDT Katie Mason MD LAB BLOOD ORDERABLES F inal Result [facility] Department [place] [address] * ECG 12 lead (10/26/2024 2:44 PM CDT) Pathologist [facility] Ventricular Rate EKG/Min 94 BPM [facility] Atrial Rate 94 BPM [facility] CT-Interval (MSEC) 204 ms [facility] QRS-Interval (MSEC) 130 ms [facility] QT-Interval (MSEC) 384 ms [facility] QTc 480 ms [facility] P [place] 70 degrees [facility] R [place] 63 degrees [facility] T [place] 60 degrees [facility] Diagnosis Normal sinus rhythm Right bundle branch block Abnormal ECG When compared with ECG of 17-FEB-2024 11:10, Premature atrial complexes are no longer Present Right bundle branch block is now Present Criteria for Inferior infarct are no longer Present Confirmed by KATHLEEN POPE M.D. ([id number]) on 10/29/2024 2:04:32 PM [facility] 10/26/2024 2:44 PM CDT 10/29/2024 2:04 PM CDT us Katie Mason MD ECG ORDERABLES Final Result Performing Organization Address [facility]/ZIP Co de Phone Number [facility] * Influenza A/B, RSV, and COVID-19 PCR Nasopharyngeal (10/26/2024 2:36 PM CDT) [facility] COVID-19 RNA Negative Negative Comment:Testing performed by : [facility], [address] [place] [address]., [address] Influenza A RNA Negative Negative LEX Comment:Testing performed by : [address] [address] Influenza B RNA Negative Negative LEX Comment:Testing performed by : [address] [address] RSV RNA Negative Negative [facility] Comment: Interpretive data: Testing performed by [facility]. This test is performed using the [employer] Xpert Xpress CoV-2/Flu/RSV plus assay. This is a multiplex, real-time reverse transcriptase PCR assay intended for the qualitative detection of nucleic acid from SARS-CoV-2, influenza A, influenza B, and respiratory syncytial virus. This assay has been cleared by the [place] Food and Drug administration. The performance characteristics have been verified by the [facility]. Results must be considered in the clinical context, and a negative result does not rule out infection. Interpretive Data last revised 2023 Testing performed by: [address] [address] Nasopharyngeal 10/26/2024 2: 36 PM CDT 10/26/2024 2:39 PM CDT Narrative LEX - 10/26/2024 3:25 PM CDT Is the Patient experiencing symptoms consistent with COVID?->Yes Katie Mason MD LAB MICROBIOLOGY - GEN ERAL ORDERABLES Final Result [facility] [address] [facility] Department [place] [address] * (ABNORMAL) Sepsis Lactate w/ Reflex (10/26/2024 2:36 PM CDT) Sepsis Lactate 2.5(H) 0.7 - 2.0 mmol/L Comment:Testing performed by : [address] [address] Blood 10/26/2024 2:36 PM CDT 10/26/2024 2:39 PM CDT Katie Mason MD LAB BLOOD ORDERABLES F inal Result Performing Organization Address [facility] de Phone Number LEX [facility] [place] [address] * Troponin T high-sensitivity series (baseline, 2hr, 4hr, 6hr) (10/26/2024 2:04 PM CDT) Trop T hs 18 <=22 ng/L Comment: Interpretive Data For further hscTnT resources including the diagnostic algorithm and an aid in interpretation, copy and paste this link: https://nrl.testcatalog.org/show/hsTrop Current Interpretive Data last revised 2019. Testing performed by: [facility], [address] [place] [address]., [address] Blood 10/26/2024 2:04 PM CDT 10/26/2024 2:10 PM CDT us Katie Mason MD LAB BLOOD ORDERABLES F inal Result Performing Organization Address [facility] Co de Phone Number [facility] [place] [address] * eGFR (10/26/2024 2:04 PM CDT) eGFR 77 >=60 mL/min/1. 73 m2 Comment: Interpretive Data Reference Interval Normal >/= 90 mL/min/1.73m2 Mildly decreased* 60 - 89 mL/min/1.73m2 Mildly to moderately decreased 45 - 59 mL/min/1.73m2 Moderately to severely decreased 30 - 44 mL/min/1.73m2 Severely decreased 15 - 29 mL/min/1.73m2 Kidney Failure < 15 mL/min/1.73m2 *Relative to young adult level Estimated glomerular filtration rate is determined by the 2020 CKD-EPI equation recommended by the National Kidney Foundation (A Unifying Approach to GFR Estimation: Recommendations of the NKF-ASK Task Force on Reassessing the Inclusion of Race in Diagnosing Kidney Disease, JASN 202). The CKD-EPI equation should not be used for patients with unstable renal function and has not been validated in children and those over 70. Current interpretive data was last reviewed 2020. Testing performed by: [address] [address] Blood 10/26/2024 2:04 PM CDT 10/26/2024 2:10 PM CDT us Katie Mason MD LAB BLOOD ORDERABLES F inal Result [facility] [address] [facility] Department [place] [address] * (ABNORMAL) Differential, auto (10/26/2024 2:04 PM CDT) Neutrophil abs 14.62(H) 1.50 - 6.50 K/cumm Comment:Testing performed by : [address] [address] Imm gran abs 0.06 0.00 - 0.10 K/cumm LEX Comment:Testing performed by : [address] [address] Lymphocyte abs 0.43(L) 0.80 - 3.30 K/cumm LEX Comment:Testing performed by : [address] [address] Monocyte abs 0.38 0.20 - 0.80 K/cumm LEX Comment:Testing performed by : [address] [address] Eosinophil abs 0.00 0.00 - 0.50 K/cumm LEX Comment:Testing performed by : [address] [address] Basophil abs 0.03 0.00 - 0.10 K/cumm LEX Comment:Testing performed by : [address] [address] Neutrophil pct 94.2 % LEX Comment: Interpretive Data Percent cell count reference ranges are not reported, since discordance with absolute values may lead to misinterpretation of CBC data. Current Interpretive Data was last revised on 2017. Testing performed by: [address] [address] Imm gran pct 0.4 % [facility] Comment: Interpretive Data Percent cell count reference ranges are not reported, since discordance with absolute values may lead to misinterpretation of CBC data. Current Interpretive Data was last revised on 2017. Testing performed by: [address] [address] Lymphocyte pct 2.8 % [facility] Comment: Interpretive Data Percent cell count reference ranges are not reported, since discordance with absolute values may lead to misinterpretation of CBC data. Current Interpretive Data was last revised on 2017. Testing performed by: [address] [address] Monocyte pct 2.4 % [facility] Comment: Interpretive Data Percent cell count reference ranges are not reported, since discordance with absolute values may lead to misinterpretation of CBC data. Current Interpretive Data was last revised on 2017. Testing performed by: [address] [address] Eosinophil pct 0.0 % [facility] Comment: Interpretive Data Percent cell count reference ranges are not reported, since discordance with absolute values may lead to misinterpretation of CBC data. Current Interpretive Data was last revised on 2017. Testing performed by: [address] [address] Basophil pct 0.2 % [facility] Comment: Interpretive Data Percent cell count reference ranges are not reported, since discordance with absolute values may lead to misinterpretation of CBC data. Current Interpretive Data was last revised on 2017. Testing performed by: [address] [address] Blood 10/26/2024 2:04 PM CDT 10/26/2024 2:10 PM CDT us Katie Mason MD LAB BLOOD ORDERABLES F inal Result [facility] [address] [facility] Department [place] [address] * (ABNORMAL) Pro B-type natriuretic peptide (10/26/2024 2:04 PM CDT) NT-proBNP 2,116(H) <=450 pg/mL Comment: Interpretive Comments: A. Dyspnea in Acute Care Setting All Ages: < 300 pg/ml, acute heart failure unlikely. < 50 yrs: 300 - 450 pg/ml, further investigation warranted. > 450 pg/ml, acute heart failure likely. 50 - 74 yrs: 300 - 900 pg/ml, further investigation warranted. > 900 pg/ml, acute heart failure likely . > or = 75 yrs: 450 - 1800 pg/ml, further investigation warranted. > 1800 pg/ml, acute heart failure likely. B. Non-acute Setting < 75 yrs < 125 pg/ml, rules out heart failure. > or = 125 pg/ml, further investigation warranted. > or = 75 yrs < 450 pg/ml, rules out heart failure. > or = 450 pg/ml, further investigation warranted. - Knowledge of each individual patient's NT-proBNP range may be more useful than using similar cut-points for every patient. Please note that marked elevations in NT-proBNP levels may be observed in state other than Left Ventricular Congestive Failure, including: acute coronary syndromes, right heart strain/failure (including pulmonary embolism and cor pulmonale), critical illness, renal failure, as well as advanced age. - References: 1. Erendira HUA et.al. Eur Heart J. 2006:27:330-337. 2. Andreas RW, David CAAL. J. AM Claudia Cardiol: Cardiovasc Imag. 2009;2: 216- 225. Interpretive Data Last Revised Date: 2017. Testing performed by: [facility], [address] [place] [address]., [address] Blood 10/26/2024 2:04 PM CDT 10/26/2024 2:10 PM CDT us Katie Mason MD LAB BLOOD ORDERABLES F inal Result [facility] [address] [facility] Department [place] [address] * (ABNORMAL) CBC with auto differential (10/26/2024 2:04 PM CDT) [facility] WBC 15.52(H) 3.80 - 9.90 K/cumm Comment:Testing performed by : [address] [address] Hgb 11.7(L) 13.0 - 17.5 g/dL LEX Comment:Testing performed by : [address] [address] Hct 35.9(L) 38.9 - 50.3 % LEX Comment:Testing performed by : [address] [address] Plt 242 150 - 400 K/cumm LEX Comment:Testing performed by : [address] [address] MPV 9.5 9.1 - 12.3 fL LEX Comment:Testing performed by : [address], [address] RBC 4.51 4.30 - 5.80 M/cumm LEX Comment:Testing performed by : [address] [address] MCV 79.6(L) 81.3 - 96.4 fL LEX Comment:Testing performed by : [address] [address] MCH 25.9(L) 27.1 - 33.3 pg LEX Comment:Testing performed by : [address] [address] MCHC 32.6 32.3 - 35.7 g/dL LEX Comment:Testing performed by : [address] [address] RDW CV 14.8 11.1 - 14.9 % LEX Comment:Testing performed by : [address] [address] RDW SD 42.9 35.7 - 48.1 fL LEX Comment:Testing performed by : [address], [address] NRBC abs 0.00 0.00 - 0.01 K/cumm [facility] Comment:Testing performed by : [facility], [address] [place] [address]., [address] Blood Venous blood specimen / Unknown 10/26/2024 2:04 PM CDT 10/26/2024 2:10 PM CDT Katie Mason MD LAB BLOOD ORDERABLES F inal Result Performing Organization Address City/[facility]/ZIP Co de Phone Number [address] [place] [address] * (ABNORMAL) Vitamin D 25 hydroxy (10/26/2024 2:04 PM CDT) Pathologist [facility] Vitamin D 25-OH 25.0(L) 30.0 - 80.0 ng/mL Blood 10/26/2024 2:04 PM CDT 10/26/2024 10:56 PM CDT Garrett Merrill DO LAB BLOOD ORDERABLES Reny l Result Performing Organization Address [facility] Co de Phone Number [address] [address] * CRP (cardiac risk) (10/26/2024 2:04 PM CDT) [facility] hsCRP 101.30 mg/L Comment: Interpretive data Adult only - values greater than or equal to 10 mg/L are consistent with infection or inflammation. Individuals with evidence of active infection, systemic inflammatory processes, or trauma should not be tested until these conditions have abated. When using HS CRP to assess cardiovascular risk, two measurements should be taken, two weeks apart (averaging results). The CDC/AHA recommended the following HS CRP cut off points (tertiles) for CVD assessment. Adult low risk <1.0 mg/L Average risk 1.0 - 3.0 mg/L High Risk >3.0 mg/L Current interpretive data was last revised on 2017. Testing performed by: [facility], [address] [place] [address]., [address] Blood 10/26/2024 2:04 PM CDT 10/26/2024 2:10 PM CDT us Garrett Merrill DO LAB BLOOD ORDERABLES Reny l Result Performing Organization Address [facility] Co de Phone Number [facility] [address] * Phosphorus (10/26/2024 2:04 PM CDT) Pathologist [facility] Phosphorus, pl 2.5 2.3 - 4.5 mg/dL Comment:Testing performed by : [address] [address] Blood 10/26/2024 2:04 PM CDT 10/26/2024 2:10 PM CDT Katie Mason MD LAB BLOOD ORDERABLES F inal Result Performing Organization Address [facility] Co de Phone Number [address] [address] * (ABNORMAL) Magnesium (10/26/2024 2:04 PM CDT) [facility] Magnesium 1.1(L) 1.4 - 2.5 mg/dL Comment:Testing performed by : [address] [address] Blood 10/26/2024 2:04 PM CDT 10/26/2024 2:10 PM CDT Katie Mason MD LAB BLOOD ORDERABLES F inal Result Performing Organization Address [facility] Co de Phone Number [address] [address] * (ABNORMAL) Hemoglobin A1c (10/26/2024 2:04 PM CDT) [facility] Hgb A1C 6.7(H) 4.0 - 5.6 % Comment:Testing performed by : [address] [address] Estimated Average Glucose 146 mg/dL LEX Comment: The ADA recommends reporting an estimated Average Glucose (eAG) with all Hemoglobin A1c results using the equation derived from a study of 507 normal and diabetic adults. Minority populations were underrepresented and children were not included. (Diabetes Care 31:0316-6663, 2008). The eAG is not equivalent to a fasting glucose. Testing performed by: [address] [address] Blood 10/26/2024 2:04 PM CDT 10/26/2024 2:10 PM CDT us Garrett Merrill DO LAB BLOOD ORDERABLES Reny rodarte Result LEX [address] [facility] Department [place] [address] * (ABNORMAL) Comprehensive metabolic panel (10/26/2024 2:04 PM CDT) Sodium 139 135 - 145 mmol/L Comment:Testing performed by : [address] [address] Potassium, pl 4.3 3.3 - 4.9 mmol/L LEX Comment:Testing performed by : [address] [address] Chloride 105 97 - 110 mmol/L LEX Comment:Testing performed by : [address] [address] CO2 20(L) 22 - 32 mmol/L LEX Comment:Testing performed by : [address] [address] Anion gap 14 2 - 15 mmol/L LEX Comment:Testing performed by : [address] [address] BUN 16 6 - 25 mg/dL LEX Comment:Testing performed by : [address] [address] Creatinine 1.00 0.80 - 1.30 mg/dL LEX Comment:Testing performed by : [address] [address] Glucose 259(H) 70 - 199 mg/dL LEX Comment: Interpretive Data Fasting glucose >/= 126 mg/dl is diagnostic for diabetes. Fasting is defined as no caloric intake for at least 8 hours. Fasting glucose between 100 mg/dl to 125 mg/dl is diagnostic of prediabetes. In a patient with classic symptoms of hyperglycemia or hyperglycemic crisis, a random glucose >/= 200 mg/dl is diagnostic for diabetes. In the absence of unequivocal hyperglycemia, results should be confirmed by repeat testing. The classification and Diagnosis of Diabetes Diabetes Care 2021; 46: S19-S40. Current interpretive data was last revised 2022. Testing performed by: [address] [address] Calcium 8.7 8.5 - 10.3 mg/dL LEX Comment:Testing performed by : [address] [address] Bilirubin, total 0.9 0.1 - 1.2 mg/dL LEX Comment:Testing performed by : [address] [address] Protein, pl 6.4(L) 6.5 - 8.5 g/dL LEX Comment:Testing performed by : [address] [address] Albumin 3.3(L) 3.5 - 5.0 g/dL LEX Comment:Testing performed by : [address] [address] Alk phos 105 40 - 130 Units/L LEX Comment:Testing performed by : [address] [address] ALT 6(L) 7 - 55 Units/L LEX Comment:Testing performed by : [address] [address] AST 9(L) 10 - 50 Units/L LEX Comment:Testing performed by : [address] [address] Blood Venous blood specimen / Unknown 10/26/2024 2:04 PM CDT 10/26/2024 2:10 PM CDT us Katie Mason MD LAB BLOOD ORDERABLES F inal Result LEX [address] [facility] [place] [address] * (ABNORMAL) Lipid panel (02/20/2024 10:15 PM DIESEL PLANT OPERATOR) Cholesterol 81 30 - 199 mg/dL Comment: Interpretive Data Ages < or = 19 years Acceptable: <170 mg/dL Borderline high: 170-199 mg/dL High: >or= 200 mg/dL Ages > or = 20 years Desirable: <200 mg/dL Borderline high: 200-239 mg/dL High: >or= 240 mg/dL Literature References: 1. Expert Panel on Integrated Guidelines for Cardiovascular Health and Risk Reduction in Children and Adolescents. Pediatrics 2011;128:S213 2. NCEP Expert Panel. Circulation 2004;110:227 Current Interpretive Data was last revised on 2017. Triglycerides 59 <=149 mg/dL [facility] Comment: Interpretive Data Ages < or = 9 years Acceptable: <75 mg/dL Borderline high: 75-99 mg/dL High: >or= 100 mg/dL Ages 10 to 20 years Acceptable: <90 mg/dL Borderline high: 90-129 mg/dL High: >or= 130 mg/dL Ages > or = 20 years Desirable: <150 mg/dL Borderline high: 150-199 mg/dL High: 200-499 mg/dL Very high: >or= 499 mg/dL Literature References: 1. Expert Panel on Integrated Guidelines for Cardiovascular Health and Risk Reduction in Children and Adolescents. Pediatrics 2011;128:S213 2. NCEP Expert Panel. Circulation 2004;110:227 Current Interpretive Data was last revised on 2017. HDL 25(L) >=40 mg/dL [facility] Comment: Interpretive Data Ages < or = 19 years Acceptable: >45 mg/dL Borderline low: 40-45 mg/dL Low: <40 mg/dL Ages > or = 20 years Desirable: >or= 60 mg/dL Low: <40 mg/dL Literature References: 1. Expert Panel on Integrated Guidelines for Cardiovascular Health and Risk Reduction in Children and Adolescents. Pediatrics 2011;128:S213 2. NCEP Expert Panel. Circulation 2004;110:227 Current Interpretive Data was last revised on 2017. LDL, calculated 42 <=129 mg/dL L[facility] Comment: Interpretive Data Ages < or = 19 years Acceptable: <110 mg/dL Borderline high: 110-129 mg/dL High: >or= 130 mg/dL Ages > or = 20 years Optimal: <100 mg/dL Near optimal: 100-129 mg/dL Borderline high: 130-159 mg/dL High: >160 mg/dL Calculated using the Bentley LDL-C estimating equation. This equation was implemented on 2023. Prior to this date LDL-C was estimated using the Friedewald equation. Literature References: 1. Expert Panel on Integrated Guidelines for Cardiovascular Health and Risk Reduction in Children and Adolescents. Pediatrics 2011;128:S213 2. NCEP Expert Panel. Circulation 2004;110:227 3. Bentley Reed et al. LEXI Cardiol. 2019June 20;5(5):540-548. doi: 10.1001/jamacardio.2020.0013 Current Interpretive Data was last revised on 2023. Non-HDL Cholesterol 56 mg/dL [facility] Comment: Interpretive Data Ages < or = 19 years Acceptable: <120 mg/dL Borderline high: 120-144 mg/dL High: >145 mg/dL Ages > or = 20 years When triglycerides are >200 mg/dL, Non-HDL cholesterol is a secondary target of therapy with treatment goals that are 30 mg/dL greater than the LDL cholesterol target. Literature References: 1. Expert Panel on Integrated Guidelines for Cardiovascular Health and Risk Reduction in Children and Adolescents. Pediatrics 2011;128:S213 2. NCEP Expert Panel. Circulation 2004;110:227 Current Interpretive Data was last revised on 2017. Chol/HDL ratio 3 [facility] Blood 02/20/2024 10:1 5 PM DIESEL PLANT OPERATOR 02/20/2024 10:41 PM DIESEL PLANT OPERATOR us Brianda Araujo MD LAB BLOOD ORDERABLE S Final Result [facility] [place] [address] * COLONOSCOPY (08/25/2020 9:30 AM CDT) Anatomical Region Laterality Modality Other Narrative Procedure Note Sanjay Hameed MD - 08/25/2020 9:30 AM CDT ENDOSCOPY LAB Patient Name: Omega Ozuna Procedure Date: 08/25/2020 9:30 AM Date of : 1945 Admit Type: Outpatient Age: 74 Gender: Male Attending MD: Sanjay Hameed M.D. Room: [facility] ENDOSCOPY ROOM 05 Note Status: Finalized Procedure: Colonoscopy Indications: Surveillance: Personal history of adenomatouspolyps on last colonoscopy > 3 years ago Providers: Sanjay Hameed M.D. Referring MD: Tone Caicedo M.D. Medicines: Monitored Anesthesia Care Complications: No immediate complications. Estimated Blood Loss: Estimated blood loss: none. Procedure: Pre-Anesthesia Assessment: - Prior to the procedure, a History and Physicalwas performed, and patient medications and allergieswere reviewed. The patient is competent. The risks and benefits of the procedure and the sedation optionsand risks were discussed with the patient. Allquestions were answered and informed consent was obtained. Patient identification and proposed procedure were verified by the physician in the pre-procedurearea. Mental Status Examination: alert and oriented.Airway Examination: normal oropharyngeal airway and neck mobility. Respiratory Examination: clear to auscultation. CV Examination: normal. Prophylactic Antibiotics: The patient does not requireprophylactic antibiotics. Prior Anticoagulants: The patient has taken Eliquis (apixaban), last dose was 3 daysprior to procedure. ASA Grade Assessment: II - A patient with mild systemic disease. After reviewing therisks and benefits, the patient was deemed insatisfactory condition to undergo the procedure. The anesthesia plan was to use monitored anesthesia care (MAC). Immediately prior to administration of medications, the patient was re-assessed for adequacy to receive sedatives. The heart rate, respiratory rate, oxygen saturations, blood pressure, adequacy of pulmonary ventilation, and response to care were monitored throughout the procedure. The physical status ofthe patient was re-assessed after the procedure. The benefits, risks and alternatives of theprocedure and sedation were discussed and informed consentwas obtained. All questions were answered. Please referto the signed informed consent document in the medical record. The scope was passed under direct vision.The [id number] was introduced through the anusand advanced to the cecum, identified by appendiceal orifice and ileocecal valve. The colonoscopy was performed without difficulty. The patient tolerated the procedure well. The quality of the bowel preparation was good. Bowel prep was administered using a split dose. Findings: The perianal and digital rectal examinations were normal. Non-bleeding hemorrhoids were found during retroflexion. Thehemorrhoids were medium-sized. Multiple large-mouthed diverticula were found in the entire colon. The exam was otherwise without abnormality on direct and retroflexion views. Impression: - Non-bleeding hemorrhoids. - Diverticulosis in the entire examined colon. - The examination was otherwise normal on directand retroflexion views. - No specimens collected. May resume Apixabantoday. Recommendation: - Discharge patient to home. - Resume previous diet. - Continue present medications. - . Attending Participation: I personally performed the entire procedure. Electronically signed by Sanjay Hameed MD Sanjay Hameed M.D. 08/25/2020 10:35:10 AM Number of Addenda: 0 Note Initiated On: 08/25/2020 9:30 AM us Sanjay Hameed MD ENDOSCOPY PROCEDURES Final Result * Hepatitis panel, acute (05/06/2016 10:51 PM CDT) Hep A IgM Nonreactive [facility] Comment: Interpretive Data If test is reported as GRAYZONE, new sample should be drawn in two weeks for testing. Current interpretive data was last revised on 2016. Hep B core IgM Nonreactive [facility] Comment: Interpretive Data If test is reported as GRAYZONE, new sample should be drawn for testing. Current interpretive data was last revised on 2016. Hep C Ab Nonreactive [facility] Comment: Interpretive Data Positive results should be confirmed by a molecular method. If positive, a second separately collected sample should be submitted for Hepatitis C Virus (HCV) RNA Detection and Quantitation by Real-Time Reverse Chief Knowledge Officer-PCR (RT-PCR). Current interpretive data was last revised on 2016. HepBsAg Nonreactive [facility] Blood specimen (specimen) 05/06/2016 10:51 PM CDT 05/07/2016 12:10 AM CDT us Nick Proctor LAB MICROBIOLOGY - GENERAL ORD ERABLES Edited Result - Final [facility] Department [place] [address] from Last 3 Months or Most Recently Relevant to Health Maintenance Insurance MEDIC[place] [address] MEDICARE [facility] MEDICARE [facility] MEDICARE [facility] MEDICARE MEDICARE [facility] Advance Directives For more information, please contact: [phone] Documents on File Type Date Recorded 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 05/30/2017 12:00 AM * Full Code (Latest Code Status on File) Date Activated Date Inactivated Comments 10/26/2024 6:59 PM 2024 3:12 PM * Full Code Date Activated Date Inactivated Comments 02/20/2024 9:17 AM 02/28/2024 3:53 PM * Full Code Date Activated Date Inactivated Comments 08/25/2020 9:02 AM 08/25/2020 3:54 PM * Full Code Date Activated Date Inactivated Comments 08/25/2020 9:02 AM 08/25/2020 9:02 AM * Full Code Date Activated Date Inactivated Comments 02/24/2018 10:44 PM 03/02/2018 7:34 PM Care Teams Hand Silvering Supervisor Relationship Specialty Start Date End Date Tone Caicedo MD [address] [place] [address] PCP - General Internal Medicine 02/22/24 Tone Caicedo MD [address] [place] [address] 02/19/24
--- OUTSIDE RECORDS SUMMARY | 2024-11-14 07:47 | XMS_ITS | Encounter Summary ---
Author Organization [facility] Address [address] [place] [address] Phone Care Team Providers Care Color Mixer Name Role Phone Tone Caicedo MD Primary Care Provider [phone] Unknown, Notinfile Primary Care Provider Unavail able Tone Caicedo MD Primary Care Provider [phone] Tone Caicedo MD Unavailable [phone] Star Tam [facility] Unavailable [phone] Encounter Details Date Type Department Care Team (Latest Contact Info) Description 05/03/2017 Orders Only WU CONVERSION Scanning, Provider Social History Tobacco Use Types Packs/Day Years Used Date Smoking Tobacco: Never Assessed Alcohol Use Standard Drinks/Week Comments No 0 (1 standard drink = 0.6 oz pur e alcohol) Sex and Gender Information Value Date Recorded Sex Assigned at Not on file Legal Sex Male 1:17 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 Gender Identity Not on file Sexual Orientation Not on file documented as of this encounter Plan of Treatment Not on file documented as of this encounter Procedures Procedure Name Priority Date/Time Associated Diagnosis Comments VASCULAR LABORATORY REPORT 05/03/2017 2:05 PM CDT documented in this encounter Results * VASCULAR LABORATORY REPORT (05/03/2017 2:05 PM CDT) Anatomical Region Laterality Modality Ultrasound us Provider Scanning CV VASCULAR PROCEDURES Final R esult documented in this encounter Visit Diagnoses Not on filedocumented in this encounter Additional Health Concerns Infection Onset Date Last Indicated Resolved Time C. difficile Comment:Germ watcher auto flagging. Specimen: STOOL Site: No diarrhea per pt RN. Natarajan IPS 02/26/18 08/25/2016 08/25/2016 02/26/2018 12:15 PM WATER QUALITY ASSISTANT COVID: Suspected 02/17/2024 02/17/2024 02/17/2024 12:52 PM WATER QUALITY ASSISTANT COVID: Suspected 02/21/2024 02/21/2024 02/21/2024 1:26 PM WATER QUALITY ASSISTANT C. difficile suspected 02/22/2024 02/22/202402/21 2:37 PM WATER QUALITY ASSISTANT COVID: Suspected 10/26/2024 10/26/2024 10/26/2024 3:26 PM CDT documented as of this encounter Care Teams Color Mixer Relationship Specialty Start Date End Date Tone Caicedo MD [address] [facility] [address] [facility] [address] [place] [address] PCP - General 05/04/16 02/18/24 Unknown, Notinfile PCP - General 02/19/24 02/21/24 Tone Caicedo MD [address] [facility] [address] [facility] [address] [place] [address] PCP - General Internal Medicine 02/22/24 Tone Caicedo MD [address] [facility] [address] [facility] [address] [place] [address] 02/19/24 Star Tam, [facility] Outpatient Cable Repairer 02/26/18 04/30/18 documented as of this encounter
== END 2024-11-14 07:44 | disposition home or self-care (01) ==
LOC: ANHAUDIO 07:44
PROVIDERS: PCP Internal Medicine; Visit Provider Otolaryngology Otolaryngology/Facial Plastic Surgery
DX: H91.93 Unspecified hearing loss, bilateral (principal)
CPT/HCPCS: 92567

== ENCOUNTER 2024-11-14 08:18 | Outpatient (CLI) | payer MEDICARE, SELFPAY ==
--- NOTE | ~2024-11-14 | XR_ITS ---
EXAMINATION: XR chest 2V, 11/14/2024 11:48 CDT HISTORY: J18.9 - Pneumonia, unspecified organism COMPARISON: No comparisons available. Technique: 2 views obtained. Findings: Scattered small basilar infiltrates. No pneumothorax. Heart is normal size. Mediastinal and hilar contours are within normal limits. Post sternotomy. Impression: Early basilar pneumonia Reviewed, dictated and finalized at location A. Impression: Early basilar pneumonia
--- OUTSIDE RECORDS SUMMARY | 2024-11-14 08:27 | XMS_ITS | Encounter Summary ---
Author Organization [facility] Address [address] [place] [address] Phone Care Team Providers Care Plastic Tile Layer Name Role Phone Tone Caicedo MD Primary Care Provider [phone] Unknown, Notinfile Primary Care Provider Unavail able Tone Caicedo MD Primary Care Provider [phone] Tone Caicedo MD Unavailable [phone] Encounter Details Date Type Department Care Team [...] on file Legal Sex Male 1:17 AM MANAGER PMO Gender Identity Not on file Sexual Orientation [...] COVID: Suspected 02/17/2024 02/17/2024 02/17/2024 12:52 PM MANAGER PMO COVID: Suspected 02/21/2024 02/21/2024 02/21/2024 1:26 PM MANAGER PMO C. difficile suspected 02/22/2024 02/22/202402/21 2:37 PM MANAGER PMO COVID: Suspected 10/26/2024 10/26/2024 10/26/2024 3:26 PM CDT documented as of this encounter Care Teams Plastic Tile Layer Relationship Specialty Start Date End Date Tone Caicedo MD [address] [place] [address] PCP - General 05/04/16 02/18/24 Unknown, Notinfile PCP - General 02/19/24 02/21/24 Tone Caicedo MD [address] [place] [address] PCP - General Internal Medicine 02/22/24 Tone Caicedo MD [address] [place] [address] 02/19/24 documented as of this encounter
--- OUTSIDE RECORDS SUMMARY | 2024-11-14 08:28 | XMS_ITS | Encounter Summary ---
Author Organization [facility] Address [address] [facility] [address] [place] [address] Phone Care Team Providers Care Mobile Development Manager Name Role Phone Tone Caicedo MD Primary Care Provider [phone] Unknown, Notinfile Primary Care Provider Unavail able Tone Caicedo MD Primary Care Provider [phone] Tone Caicedo MD Unavailable [phone] Star Tam [facility] Unavailable Encounter Details Date Type Department Care Team (Late st Contact Info) Description 08/28/2017 Telephone [facility] Cardiology [address] [facility] Advanced Medicine [address]th [place] [address] [place] [address] Morgan Busby MD [address] [facility] [address] [place] [address] Social History Tobacco Use Types Packs/Day Years Used Date Smoking Tobacco: Former Smokeless Tobacco: Never Alcohol Use Standard Drinks/Week Comments No 0 (1 standard drink = 0.6 oz pur e alcohol) Sex and Gender Information Value Date Recorded Sex Assigned at Not on file Legal Sex Male 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 difficile suspected 02/22/2024 02/22/202402/21 2:37 PM SEO MARKETING SPECIALIST COVID: Suspected 10/26/2024 10/26/2024 10/26/2024 3:26 PM CDT documented as of this encounter Care Teams Mobile Development Manager Relationship Specialty Start Date End Date Tone Caicedo MD [address] [place] [address] PCP - General 05/04/16 02/18/24 Unknown, Notinfile PCP - General 02/19/24 02/21/24 Tone Caicedo MD [address] [place] [address] PCP - General Internal Medicine 02/22/24 Tone Caicedo MD [address] [place] [address] 02/19/24 Star Tam, [facility] SHOP Outpatient Canine Service Teacher 02/26/18 04/30/18 documented as of this encounter
--- OUTSIDE RECORDS SUMMARY | 2024-11-14 08:28 | XMS_ITS | Clinical Summary ---
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 Continue high PVRs throughout day. Patient initially refusing catheter, now agreeable - Void trial in 3-5 days at rehab facility - Flomax Pneumonia 02/25/2024 Assessment & Plan (02/27/2024 8:47 AM DISPOSAL OPERATOR): SEE LEUKOCYTOSIS - CT CAP 02/22 with multifocal consolidation in the L>R lung base c/w pneumonia and slightly worse from prior imaging. Small volume loculated fluid in the L major fissure Antibiotics Zosyn (02/22 - 02/24) - 10 doses Augmentin (02/25- 03/03)- 7 days Encounter for medication review 02/22/2024 Assessment & Plan (02/22/2024 11:30 AM DISPOSAL OPERATOR): Dispense report reviewed, home medications discussed with patient and daughter and updated in ADMISSIONS tab H/O: stroke 02/22/2024 Assessment & Plan (02/22/2024 11:34 AM DISPOSAL OPERATOR): Home regimen: statin (continued), ASA (held) Cerebrovascular accident, first in April 2017 affecting left basal ganglion and then again in May 2017 affecting the right christy with right-sided weakness and dysarthria as his predominant symptoms, now with minimal residua except for difficulty swallowing and no recurrent symptoms. Aortic stenosis 02/22/2024 Assessment & Plan (02/22/2024 11:35 AM DISPOSAL OPERATOR): s/p AVR (2009) c/b endocarditis s/p redo AVR (2016) Leukocytosis 02/21/2024 Assessment & Plan (02/26/2024 3:03 PM DISPOSAL OPERATOR): - WBC trend: 12.2- 15.9 - [...] 02/21/2024 Assessment & Plan (02/26/2024 3:06 PM DISPOSAL OPERATOR): - 02/20: reported discomfort with urinating, [...] prostatitis is proven and the risk of story editor fluoroquinolone in elderly population - STD panel negative Scalp laceration 02/21/2024 Assessment & Plan (02/23/2024 12:13 PM DISPOSAL OPERATOR): - periorbital lac closed with vicryl sutures in ED on 02/19 Nasal bone fracture 02/21/2024 Assessment & Plan (02/21/2024 4:20 PM DISPOSAL OPERATOR): - Age indeterminate - No point tenderness - No intervention necessary Subarachnoid bleed 02/20/2024 Assessment & Plan (02/26/2024 5:55 AM DISPOSAL OPERATOR): #Trace subarachnoid hemorrhage - Neurosurgery consulted - Neuro checks q4h - SBP <160 - No keppra required - Hold Eliquis and hold ASA until follow up - BI consult, PM&R consult - Okay for DVT ppx - Follow up with NSGY (Dr Evangelista) in 2 to 4 weeks with a noncontrast head CT Hematoma 02/20/2024 Assessment & Plan (02/23/2024 12:02 PM DISPOSAL OPERATOR): #Scalp/periorbital hematoma - Monitor swelling - HOB elevation - 1/2 dressing c/d, no expansion or pulsatility noted, hematoma evolving - 1/3 wound c/d, hematoma evolving Hypertension 02/20/2024 Assessment & Plan (02/22/2024 11:23 AM DISPOSAL OPERATOR): Home regimen: irbesartan (continued) - SBP goal <160, PRN IV hydralazine if needed HLD (hyperlipidemia) 02/20/2024 Assessment & Plan (02/22/2024 11:22 AM DISPOSAL OPERATOR): Home regimen: atorvastatin (continued) GERD (gastroesophageal reflux disease) Assessment & Plan (02/22/2024 11:22 AM DISPOSAL OPERATOR): Home regimen: famotidine (continued) Diabetes mellitus 02/20/2024 Assessment & Plan (02/23/2024 12:01 PM DISPOSAL OPERATOR): - Home medications: insulin glargine 20 units daily - last A1c on file (in alternate chart) 2019: 7.0 - SSI, glargine while inpatient - Consistent carb diet - add on A1c to blood in lab 02/21: 6.6% CAD (coronary artery disease) 02/20/2024 Assessment & Plan (02/22/2024 11:36 AM DISPOSAL OPERATOR): s/p 4v CABG (2009) Home regimen: ASA (held) - 02/20: NSGY recommendations holding aspirin until outpatient follow up Paroxysmal atrial fibrillation 02/20/2024 Assessment & Plan (02/22/2024 11:24 AM DISPOSAL OPERATOR): Home rate control regimen: none Home anticoagulation regimen: eliquis (held) --- eliquis NOT to resume until cleared by NSGY outpatient COPD (chronic obstructive pulmonary disease) Assessment & Plan (02/22/2024 11:19 AM DISPOSAL OPERATOR): - Home medications: Trelegy, albuterol - Continue inhalers - Wean supplemental oxygen as tolerated --> RA 1/2 --- patient reports he was taken off of trelegy in the outpatient settings for reasons he's unable to recall, unable to identify reason on chart review, continue current medication dosing Discharge planning issues 02/20/2024 Assessment & Plan (02/28/2024 7:58 AM DISPOSAL OPERATOR): - 02/19: new admit, BI consult - 02/20: NSGY signed off, pending BI consult, monitoring leukocytosis - 02/21 PT recs: IPR, pending [employer] eval for BI workup, patient agreeable to IPR in [place], case management notified; barrier to discharge: leukocytosis [...] 02/26: Ready for transfer 02/27; DC to [facility] Treatment note done Confusion 02/20/2024 Assessment & Plan (02/22/2024 11:18 AM DISPOSAL OPERATOR): Etiology: SAH, patient's daughter reports some [...] 02/19/2024 Assessment & Plan (02/22/2024 11:22 AM DISPOSAL OPERATOR): Etiology: Mechanical S/P aortic valve replacement with bioprosthetic valve 11/12/2021 Other dysphagia 12/14/2018 Acute renal failure (ARF) 03/01/2018 Assessment & Plan (03/02/2018 12:23 PM DISPOSAL OPERATOR): Cr 0.9 On admit. Increased to 1.28 with IV diuresis. Suspect now intravascularly dry. Will hold further doses for now. Checked UA and neg for UTI. Low suspicion of infection with no fever, leukocytosis, dysuria or hematuria. Cr resolved to 1.04 Assessment & Plan (03/01/2018 1:00 PM DISPOSAL OPERATOR): Cr 0. On admit. Increased to 1.28 with IV diuresis. Suspect now intravascularly dry. Will hold further doses for now. Check UA r/o UTI. Low suspicion of infection with no fever, leukocytosis, dysuria or hematuria. Acute on chronic systolic heart failure 02/27/19 19 Assessment & Plan (03/02/2018 12:22 PM DISPOSAL OPERATOR): Mild/borderline acute sys CHF vs technically [...] anxiety. Assessment & Plan (03/01/2018 12:55 PM DISPOSAL OPERATOR): Mild/borderline acute sys CHF vs technically [...] anxiety. Assessment & Plan (02/28/2018 11:53 AM DISPOSAL OPERATOR): Mild/borderline acute sys CHF vs technically difficult study. JVD and rales on exam with up trending BNP treated with IV lasix and clinically improving. Follows with Dr Busby cards consulted. Continue coreg, statin, ARB. Discussed updated recs with fellow. Of note, diagnosis is sensitive topic for patient's daughter, who expresses significant anxiety. Assessment & Plan (02/27/2018 12:05 PM DISPOSAL OPERATOR): Mild/borderline acute sys CHF vs technically [...] 02/24/2018 Assessment & Plan (03/02/2018 12:20 PM DISPOSAL OPERATOR): Multifocal. Wheezing and new oxygen requirement [...] today. Assessment & Plan (03/01/2018 12:49 PM DISPOSAL OPERATOR): Multifocal. Wheezing and new oxygen requirement [...] soon. Assessment & Plan (02/28/2018 11:50 AM DISPOSAL OPERATOR): Wheezing and new oxygen requirement of [...] discharge. Assessment & Plan (03/01/2018 6:05 PM DISPOSAL OPERATOR): Dyspnea in patient with COPD in [...] CT Assessment & Plan (02/27/2018 11:51 AM DISPOSAL OPERATOR): Wheezing and new oxygen requirement of [...] prior to admission. PT/OT assessment. eval for [facility] vs SNF at discharge. Assessment & Plan (02/26/2018 12:44 PM DISPOSAL OPERATOR): Wheezing and new oxygen requirement of [...] assessment. Assessment & Plan (02/25/2018 2:15 PM DISPOSAL OPERATOR): On 4L NC currently. Most likely related to COPD exacerbation and viral illness. - Will need walking oxygen assessment prior to discharge given patient's readmission and longer history of dyspnea Assessment & Plan (02/24/2018 11:13 PM DISPOSAL OPERATOR): On 3L NC currently. Most likely related to COPD exacerbation. Plan as below - bnp minimally elevated, does not appear volume overloaded on exam - low suspicion for PE, already on eliquis Type 2 diabetes mellitus with hyperglycemia 02/2018 Assessment & Plan (03/02/2018 12:25 PM DISPOSAL OPERATOR): Well controlled as o/p with HbA1c [...] pulmonary-simeon. Assessment & Plan (03/01/2018 12:57 PM DISPOSAL OPERATOR): Well controlled as o/p with HbA1c [...] d/c. Assessment & Plan (02/28/2018 11:52 AM DISPOSAL OPERATOR): Well controlled as o/p with HbA1c 7 this admit On home lants 25u qAM, lispro 3u TID, metformin 500mg BID -Dose reduced lantus and place on mdssi, adjust as needed, reviewed serial accuchecks. -On Consistent carb diet and continue ARB. Advancing lantus for steroid induced hyperglycemia and monitor. Plan to resume home regimen at d/c. Assessment & Plan (02/27/2018 11:54 AM DISPOSAL OPERATOR): Well controlled as o/p with HbA1c 7 this admit On home lants 25u qAM, lispro 3u TID, metformin 500mg BID -Dose reduced lantus and place on mdssi, adjust as needed, reviewed serial accuchecks. -On Consistent carb diet and continue ARB. Plan to resume home regimen at d/c. Assessment & Plan (02/26/2018 12:56 PM DISPOSAL OPERATOR): Well controlled as o/p with HbA1c 7 this admit On home lants 25u qAM, lispro 3u TID, metformin 500mg BID -Dose reduced lantus and place on mdssi, adjust as needed, reviewed serial accuchecks. -On Consistent carb diet and continue ARB. Plan to resume home regimen at d/c. Assessment & Plan (02/25/2018 2:25 PM DISPOSAL OPERATOR): On home lants 25u qAM, lispro 3u TID, metformin 500mg BID -will dose reduce lantus and place on mdssi, adjust as needed -Consistent carb diet Assessment & Plan (02/24/2018 11:10 PM DISPOSAL OPERATOR): On home lants 25u qAM, lispro 3u TID, metformin 500mg BID -will dose reduce lantus and place on mdssi Assessment & Plan (02/21/2018 12:01 PM DISPOSAL OPERATOR): On home lants 25u qAM, lispro 3u TID, metformin 500mg BID. Inpt regimen lantus 15 qAM and lispro 3u, SSI --Resume home regimen at discharge COPD with acute exacerbation 02/20/2018 Assessment & Plan (03/02/2018 12:21 PM DISPOSAL OPERATOR): FEV1 50% on pft from 05/2016. [...] today. Assessment & Plan (03/01/2018 12:51 PM DISPOSAL OPERATOR): FEV1 50% on pft from 05/2016. [...] discharge. Assessment & Plan (02/28/2018 11:51 AM DISPOSAL OPERATOR): FEV1 50% on pft from 05/2016. [...] d/c. Assessment & Plan (02/27/2018 11:52 AM DISPOSAL OPERATOR): FEV1 50% on pft from 05/2016. [...] d/c. Assessment & Plan (02/26/2018 12:47 PM DISPOSAL OPERATOR): FEV1 50% on pft from 05/2016. [...] d/c. Assessment & Plan (02/25/2018 2:24 PM DISPOSAL OPERATOR): FEV1 50% on pft from 05/2016. [...] z-pack. Assessment & Plan (02/24/2018 11:19 PM DISPOSAL OPERATOR): - FEV1 50% on pft from 05/2016 - suspect current exacerbation from viral infection. recent rvp pos for rhino, entero, and metapnuemovirus - will check flu swab - cont pred 40 may need longer taper, scheduled nebs. Wean O2 as tolerated. Given sputum change will give z-pack. Assessment & Plan (02/21/2018 12:01 PM DISPOSAL OPERATOR): COPD, quit smoking 3 years ago [...] 12/01/2017 Assessment & Plan (03/02/2018 12:24 PM DISPOSAL OPERATOR): Aortic stenosis s/p bioprosthetic AVR complicated by endocarditis requiring repeat surgery 2016. Repeat TTE with good function of valve. Outpatient f/u as planned. Continue asa, statin, coreg, & ARB. Repeat TTE with mild , MS. Volume improved s/p gentle diuresis. No plans for diuretics at discharge. Assessment & Plan (03/01/2018 12:55 PM DISPOSAL OPERATOR): Aortic stenosis s/p bioprosthetic AVR complicated by endocarditis requiring repeat surgery 2017. Repeat TTE with good function of valve. Outpatient f/u as planned. Continue asa, statin, coreg, & ARB. Repeat TTE with mild , MS. Volume improved with gentle diuresis. Assessment & Plan (02/28/2018 11:54 AM DISPOSAL OPERATOR): Aortic stenosis s/p bioprosthetic AVR complicated by endocarditis requiring repeat surgery 2017. Repeat TTE with good function of valve. Outpatient f/u as planned. Continue asa, statin, coreg, & ARB. Repeat TTE with mild , MS. Assessment & Plan (02/27/2018 11:53 AM DISPOSAL OPERATOR): Aortic stenosis s/p bioprosthetic AVR complicated by endocarditis requiring repeat surgery 2017. Repeat TTE with good function of valve. Outpatient f/u as planned. Continue asa, statin, coreg, & ARB. Repeat TTE today. Assessment & Plan (02/26/2018 12:55 PM DISPOSAL OPERATOR): Aortic stenosis s/p bioprosthetic AVR complicated by endocarditis requiring repeat surgery 2017. Outpatient f/u as planned. Continue asa, statin, coreg, & ARB. Repeat TTE today. Assessment & Plan (02/24/2018 11:07 PM DISPOSAL OPERATOR): - Aortic stenosis s/p bioprosthetic AVR complicated by endocarditis requiring repeat surgery 2017. Outpatient f/u Assessment & Plan (02/21/2018 11:58 AM DISPOSAL OPERATOR): Aortic stenosis s/p bioprosthetic AVR complicated by endocarditis requiring repeat surgery 2016. Lungs w/o crackles, last TTE 04/2016: Bioprosthetic AV with thickened leaflets and restricted opening, small calculated EOA is suggestive of AVR dysfunction --Follow up with PCP Hyperlipidemia 08/25/2017 Assessment & Plan (02/20/2018 4:57 PM DISPOSAL OPERATOR): Continue pravastatin Cerebrovascular accident (CVA) 05/19/2017 Assessment & Plan (03/02/2018 12:24 PM DISPOSAL OPERATOR): Hx prior septic emboli with CVA with HP, complication of prior endocarditis. Cont asa, statin. AC for Pafib. PT/OT evaluation with physical debilitation with acute illness. OOB as tolerated. Plan SNF at d/c today. Assessment & Plan (03/01/2018 12:56 PM DISPOSAL OPERATOR): Hx prior septic emboli with CVA with HP, complication of prior endocarditis. Cont asa, statin. AC for Pafib. PT/OT evaluation with physical debilitation with acute illness. OOB as tolerated. Plan SNF at d/c Assessment & Plan (02/28/2018 11:54 AM DISPOSAL OPERATOR): Hx prior septic emboli with CVA with HP, complication of prior endocarditis. Cont asa, statin. AC for Pafib. PT/OT evaluation with physical debilitation with acute illness. OOB as tolerated. Assessment & Plan (02/27/2018 11:54 AM DISPOSAL OPERATOR): Hx prior septic emboli with CVA with HP, complication of prior endocarditis. Cont asa, statin. AC for Pafib. PT/OT evaluation with physical debilitation with acute illness. Assessment & Plan (02/26/2018 12:53 PM DISPOSAL OPERATOR): Hx prior CVA with HP, complication of prior endocarditis. Cont asa, statin. AC for Pafib Assessment & Plan (02/25/2018 2:16 PM DISPOSAL OPERATOR): Cont asa, statin. AC for afib Assessment & Plan (02/24/2018 11:08 PM DISPOSAL OPERATOR): Cont asa, statin Assessment & Plan (02/21/2018 11:59 AM DISPOSAL OPERATOR): April and May 2017 multiple recurrent ischemic strokes, ambulates well, neuro exam WNL, per daughter mostly some speech deficits. --Continue Asa, statin Chronic atrial fibrillation 02/10/2017 Assessment & Plan (03/02/2018 12:24 PM DISPOSAL OPERATOR): Cont bb and eliquis. Rate controlled. Monitoring serial electrolytes and WNLs. Monitoring on telemetry and no events, remains in NSR. Assessment & Plan (03/01/2018 12:56 PM DISPOSAL OPERATOR): Cont bb and eliquis. Rate controlled. Monitoring serial electrolytes and WNLs. Monitoring on telemetry. Assessment & Plan (02/28/2018 11:54 AM DISPOSAL OPERATOR): Cont bb and eliquis. Rate controlled. Monitoring serial electrolytes. Assessment & Plan (02/27/2018 3:45 PM DISPOSAL OPERATOR): Known history of paroxysmal atrial fibrillation. Denies tachycardia, palpitations; hemodynamically stable vital signs. ECG on admission NSR. Home regimen includes carvedilol for rate control, apixaban for anticoagulation given significant [id number] score - continue carvedilol - continue apixaban - consider telemetry monitoring given new symptoms of heart failure Assessment & Plan (02/26/2018 12:57 PM DISPOSAL OPERATOR): Cont bb and eliquis. Rate controlled. Assessment & Plan (02/25/2018 2:25 PM DISPOSAL OPERATOR): Cont bb and eliquis. Assessment & Plan (02/24/2018 11:11 PM DISPOSAL OPERATOR): Cont bb and eliquis. ekg with sinus with pac Assessment & Plan (02/20/2018 4:57 PM DISPOSAL OPERATOR): Regular on exam, EKG NSR, on Eliquis 5mg BID, CTM Gastroesophageal reflux disease 02/07/2017 Hypertension 10/07/2016 Assessment & Plan (03/02/2018 12:26 PM DISPOSAL OPERATOR): Cont bb and arb (increase dose to 150mg per cardiology note) and tolerating well. No hypotension with diuresis, remained stable pressures off diuretics. Assessment & Plan (03/01/2018 12:58 PM DISPOSAL OPERATOR): Cont bb and arb (increase dose to 150mg per cardiology note) and tolerating well. No hypotension with diuresis. Anticipate transition to oral agents. Assessment & Plan (02/28/2018 11:52 AM DISPOSAL OPERATOR): Cont bb and arb (increase dose to 150mg per cardiology note) and tolerating well. No hypotension with diuresis. Assessment & Plan (02/27/2018 3:26 PM DISPOSAL OPERATOR): Known history of HTN. Currently well-controlled with home regimen. Denies headache, vision changes, chest pain, palpitations, weakness. - continue carvedilol 6.25mg BID and irbesartan 150mg daily - low sodium diet - monitor blood pressure Assessment & Plan (02/26/2018 12:57 PM DISPOSAL OPERATOR): Cont bb and arb (increase dose to 150mg per cardiology note) and tolerating well. Assessment & Plan (02/25/2018 2:25 PM DISPOSAL OPERATOR): Cont bb and arb (increase dose to 150mg per cardiology note) Assessment & Plan (02/24/2018 11:08 PM DISPOSAL OPERATOR): Cont bb and arb Polyp of colon 10/06/2016 Diarrhea 10/06/2016 Duodenal ulcer 10/06/2016 Assessment & Plan (02/26/2018 12:56 PM DISPOSAL OPERATOR): Hx of duodenal ulcer. Cont daily ppi, no abdominal pain. Evidence of weight loss on exam. Monitor weight story editor, will defer to PCP. Assessment & Plan (02/25/2018 2:25 PM DISPOSAL OPERATOR): Cont ppi Assessment & Plan (02/24/2018 11:07 PM DISPOSAL OPERATOR): Cont ppi Assessment & Plan (02/20/2018 5:02 PM DISPOSAL OPERATOR): Stable without issues this admission, 10/2016 w/o ulcers noted, continue protonix 40 Aortic valve disorder 07/26/2016 Chronic coronary artery disease 07/26/2016 Assessment & Plan (03/02/2018 12:25 PM DISPOSAL OPERATOR): Cont asa, statin, bb, arb. Review of last cardiology note shows Irbesartan dose of 150mg, so dose adjusted. Tolerating well. No evidence of acute ischemia & remained stable. O/p f/u with cardiology. Assessment & Plan (03/01/2018 12:57 PM DISPOSAL OPERATOR): Cont asa, statin, bb, arb. Review of last cardiology note shows Irbesartan dose of 150mg, so dose adjusted. Tolerating well. No evidence of acute ischemia. Assessment & Plan (02/28/2018 11:52 AM DISPOSAL OPERATOR): Cont asa, statin, bb, arb. Review of last cardiology note shows Irbesartan dose of 150mg, so dose adjusted. Tolerating well. Assessment & Plan (02/27/2018 3:50 PM DISPOSAL OPERATOR): Coronary artery disease is stable, s/p 3-vessel CABG 2009. Follows with [facility] cardiology, stress test 06/2016 with signs of minimal ischemia, currently denies any symptoms of angina, stable disease. ECG without ischemic changes, troponin <0.03. - continue aspirin and high-dose atorvastatin - continue carvedilol and irbesartan - monitor for chest pain Assessment & Plan (02/26/2018 12:57 PM DISPOSAL OPERATOR): Cont asa, statin, bb, arb. Review of last cardiology note shows Irbesartan dose of 150mg, so dose adjusted. Assessment & Plan (02/25/2018 2:23 PM DISPOSAL OPERATOR): Cont asa, statin, bb, arb. -Review of last cardiology note shows Irbesartan dose of 150mg. Assessment & Plan (02/24/2018 11:11 PM DISPOSAL OPERATOR): Cont asa, statin, bb, arb Assessment & Plan (02/21/2018 11:59 AM DISPOSAL OPERATOR): s/p 4v CABG and bioprostheric AVR: EF 58% 04/2017. Denies chest pain, 02/20 EKG NSR 98bpm, trop <.03 -continue ASA, pravastatin, coreg, irbersartan 75mg BID Encounters Date Type Department Care Team Description 10/26/2024 1:49 PM CDT - 2024 11:00 AM CDT Hospital Encounter [facility] 4 Med Surg [address] [place] [id number] Katie Mason MD Kruse, Brandon Chase, DO [...] week 02/20/2024 How often do you attend [facility] or hinduism services? More than 4 times per year 02/20/2024 Do you belong to any clubs o r organizations such as cheondoism groups, unions, fraternal or athletic groups, or [...] and heating? Not hard at all 02/20/2024 [facility] [place] [facility] Occupat ional Health - Occupational Stress [...] any time in the past 12 m [facility], were you homeless or [...] often do you attend chur ch or hinduism services? More than 4 times per year 10/28/2024 Do you belong to any clubs o r organizations such as cheondoism groups, unions, fraternal or athletic groups, or [...] any time in the past 12 m [facility], were you homeless or living in a detention (including now)? No 10/28/2024 [facility] Utilities Answer Date Recorded In the past [...] on file Legal Sex Male 1:17 AM DISPOSAL OPERATOR Gender Identity Not on file Sexual [...] CDT LIPID PANEL Routine 02/20/2024 10:15 PM DISPOSAL OPERATOR COLONOSCOPY 08/25/2020 9:30 AM CDT HEPATITIS PANEL, ACUTE After X-Ray 05/06/2016 10:51 PM CDT from Last 3 Months or Most Recently Relevant to Health Maintenance Results * POCT glucose (2024 7:57 AM CDT) [facility] Glucose, POC 186 70 - 199 mg/dL Comment:Testing performed by : [address] [address] Glucose comment 1 RN/MD Notified LEX Comment:Testing performed by : [address] [id number] Blood 2024 7:57 AM CDT 2024 7:57 AM CDT Gino Bryan MD LAB POCT ORDERABLE S - DEVICE Final Result [facility] [address] [facility] Department [place] [address] * eGFR (2024 1:42 AM CDT) [facility] eGFR 88 >=60 mL/min/1. 73 m2 Comment: [...] was last reviewed 2020. Testing performed by: [address] [address] Blood 2024 1:42 AM CDT 2024 1:51 AM CDT Gino Bryan MD LAB BLOOD ORDERABL ES Final Result [facility] [place] [address] [facility] Department of Laboratories [place], [place] [id number] * (ABNORMAL) Differential, auto (2024 1:42 AM CDT) Pathologist [facility] Neutrophil abs 6.54(H) 1.50 - 6.50 K/cumm Comment:Testing performed by : [address] [address] Imm gran abs 0.35(H) 0.00 - 0.10 K/cumm [facility] Comment:Testing performed by : [address] [address] Lymphocyte abs 1.70 0.80 - 3.30 K/cumm [facility] Comment:Testing performed by : [address] [address] Monocyte abs 0.99(H) 0.20 - 0.80 K/cumm [facility] Comment:Testing performed by : [address] [address] Eosinophil abs 0.28 0.00 - 0.50 K/cumm [facility] Comment:Testing performed by : [address] [address] Basophil abs 0.07 0.00 - 0.10 K/cumm [facility] Comment:Testing performed by : [address] [address] Neutrophil pct 65.9 % [facility] Comment: Interpretive Data Percent cell count reference ranges are not reported, since discordance with absolute values may lead to misinterpretation of CBC data. Current Interpretive Data was last revised on 2017. Testing performed by: [address] [address] Imm gran pct 3.5 % [facility] Comment: Interpretive Data Percent cell count reference ranges are not reported, since discordance with absolute values may lead to misinterpretation of CBC data. Current Interpretive Data was last revised on 2017. Testing performed by: [address] [address] Lymphocyte pct 17.1 % [facility] Comment: Interpretive Data Percent cell count reference ranges are not reported, since discordance with absolute values may lead to misinterpretation of CBC data. Current Interpretive Data was last revised on 2017. Testing performed by: [address] [address] Monocyte pct 10.0 % [facility] Comment: Interpretive Data Percent cell count reference ranges are not reported, since discordance with absolute values may lead to misinterpretation of CBC data. Current Interpretive Data was last revised on 2017. Testing performed by: [address] [address] Eosinophil pct 2.8 % [facility] Comment: Interpretive Data Percent cell count reference ranges are not reported, since discordance with absolute values may lead to misinterpretation of CBC data. Current Interpretive Data was last revised on 2017. Testing performed by: [address] [address] Basophil pct 0.7 % [facility] [place] Comment: Interpretive Data Percent cell count reference ranges are not reported, since discordance with absolute values may lead to misinterpretation of CBC data. Current Interpretive Data was last revised on 2017. Testing performed by: [address] [address] Blood 2024 1:42 AM CDT 2024 1:51 AM CDT us Gino Bryan MD LAB BLOOD ORDERABL ES Final Result [facility] Department [place] [address] * (ABNORMAL) CBC with auto differential (2024 1:42 AM CDT) WBC 9.93(H) 3.80 - 9.90 K/cumm Comment:Testing performed by : [address] [address] Hgb 10.5(L) 13.0 - 17.5 g/dL [facility] [place] Comment:Testing performed by : [address] [address] Hct 32.4(L) 38.9 - 50.3 % [facility] [place] Comment:Testing performed by : [address] [address] Plt 391 150 - 400 K/cumm LEX Comment:Testing performed by : [address] [address] MPV 9.4 9.1 - 12.3 fL [facility] [place] Comment:Testing performed by : [address] [address] RBC 4.06(L) 4.30 - 5.80 M/cumm [facility] [place] Comment:Testing performed by : [address] [address] MCV 79.8(L) 81.3 - 96.4 fL [facility] [place] Comment:Testing performed by : [address] [address] MCH 25.9(L) 27.1 - 33.3 pg [facility] [place] Comment:Testing performed by : [address] [address] MCHC 32.4 32.3 - 35.7 g/dL [facility] [place] Comment:Testing performed by : [address] [address] RDW CV 15.1(H) 11.1 - 14.9 % [facility] [place] Comment:Testing performed by : [address] [address] RDW SD 43.8 35.7 - 48.1 fL [facility] [place] Comment:Testing performed by : [address] [address] NRBC abs 0.00 0.00 - 0.01 K/cumm LEX Comment:Testing performed by : [address], [address] Blood 2024 1:42 AM CDT 2024 1:51 AM CDT Gino Bryan MD LAB BLOOD ORDERABL ES Final Result Performing Organization Address City/[facility] Co de Phone Number [facility] [address] [facility] Department [place] [address] * Phosphorus (2024 1:42 AM CDT) Phosphorus, pl 3.6 2.3 - 4.5 mg/dL Comment:Testing performed by : [address] [address] Blood 2024 1:42 AM CDT 2024 1:51 AM CDT Gino Bryan MD LAB BLOOD ORDERABL ES Final Result Performing Organization Address City/[facility]/ZIP Co de Phone Number [facility] [address] [facility] Department [place] [address] * Magnesium (2024 1:42 AM CDT) Pathologist [facility] Magnesium 1.8 1.4 - 2.5 mg/dL Comment:Testing performed by : [address] [address] Blood 2024 1:42 AM CDT 2024 1:51 AM CDT Gino Bryan MD LAB BLOOD ORDERABL ES Final Result [facility] [address] [facility] [place] [address] * (ABNORMAL) Comprehensive metabolic panel (2024 1:42 AM CDT) [facility] Sodium 137 135 - 145 mmol/L Comment:Testing performed by : [address] [address] Potassium, pl 4.1 3.3 - 4.9 mmol/L LEX Comment:Testing performed by : [address] [address] Chloride 104 97 - 110 mmol/L LEX Comment:Testing performed by : [address] [address] CO2 23 22 - 32 mmol/L LEX Comment:Testing performed by : [address] [address] Anion gap 10 2 - 15 mmol/L LEX Comment:Testing performed by : [address] [address] BUN 25 6 - 25 mg/dL LEX Comment:Testing performed by : [address] [address] Creatinine 0.87 0.80 - 1.30 mg/dL LEX Comment:Testing performed by : [address] [address] Glucose 166 70 - 199 mg/dL LEX [...] was last revised 2022. Testing performed by: [address] [address] Calcium 8.7 8.5 - 10.3 mg/dL LEX Comment:Testing performed by : [address] [address] Bilirubin, total 0.3 0.1 - 1.2 mg/dL LEX Comment:Testing performed by : [address] [address] Protein, pl 5.6(L) 6.5 - 8.5 g/dL LEX Comment:Testing performed by : [address] [address] Albumin 2.5(L) 3.5 - 5.0 g/dL LEX Comment:Testing performed by : [address] [address] Alk phos 122 40 - 130 Units/L LEX Comment:Testing performed by : [address] [address] ALT 32 7 - 55 Units/L LEX Comment:Testing performed by : [address] [address] AST 17 10 - 50 Units/L LEX Comment:Testing performed by : [address] [address] Blood 2024 1:42 AM CDT 2024 1:51 AM CDT Gino Bryan MD LAB BLOOD ORDERABL ES Final Result Performing Organization Address [facility] Co de Phone Number [address] [address] * POCT glucose (10/31/2024 8:19 PM CDT) Glucose, POC 182 70 - 199 mg/dL Comment:Testing performed by : [address], [address] Glucose comment 1 RN/MD Notified LEX Comment:Testing performed by : [address], [address] Blood 10/31/2024 8:19 PM CDT 10/31/2024 8:19 PM CDT Gino Bryan MD LAB POCT ORDERABLE S - DEVICE Final Result Performing Organization Address [facility] de Phone Number [address] [address] * (ABNORMAL) POCT glucose (10/31/2024 4:51 PM CDT) Glucose, POC 220(H) 70 - 199 mg/dL Comment:Testing performed by : [address] [address] Glucose comment 1 RN/ Notified LEX Comment:Testing performed by : [address] [address] Glucose comment 2 Follow Protocol LEX Comment:Testing performed by : [address] [address] Blood 10/31/2024 4:51 PM CDT 10/31/2024 4:51 PM CDT Gino Bryan MD LAB POCT ORDERABLE S - DEVICE Final Result Performing Organization Address [facility] Co de Phone Number [address] [address] * (ABNORMAL) POCT glucose (10/31/2024 11:50 AM CDT) Glucose, POC 228(H) 70 - 199 mg/dL Comment:Testing performed by : [address], [address] Glucose comment 1 RN/MD Notified LEX Comment:Testing performed by : [address], [address] Glucose comment 2 Follow Protocol LEX Comment:Testing performed by : [address], [address] Blood 10/31/2024 11:5 0 AM CDT 10/31/2024 11:50 AM CDT Gino Bryan MD LAB POCT ORDERABLE S - DEVICE Final Result Performing Organization Address [facility] Co de Phone Number [address] [place] [employer] [address] * POCT glucose (10/31/2024 7:49 AM CDT) [facility] Glucose, POC 185 70 - 199 mg/dL Comment:Testing performed by : [address], [address] Blood 10/31/2024 7:49 AM CDT 10/31/2024 7:49 AM CDT Gino Bryan MD LAB POCT ORDERABLE S - DEVICE Final Result Performing Organization Address City/[facility]/ZIP Co de Phone Number [place] [id number] [facility] [place] [address] * eGFR (10/31/2024 3:29 AM CDT) [facility] eGFR 89 >=60 mL/min/1. 73 m2 Comment: [...] was last reviewed 2020. Testing performed by: [address] [address] Blood 10/31/2024 3:29 AM CDT 10/31/2024 4:37 AM CDT Gino Bryan MD LAB BLOOD ORDERABL ES Final Result L[facility]6 [facility] Department [place] [address] * (ABNORMAL) Differential, auto (10/31/2024 3:29 AM CDT) Neutrophil abs 6.11 1.50 - 6.50 K/cumm Comment:Testing performed by : [address] [address] Imm gran abs 0.21(H) 0.00 - 0.10 K/cumm LEX Comment:Testing performed by : [address] [address] Lymphocyte abs 1.47 0.80 - 3.30 K/cumm LEX Comment:Testing performed by : [address] [address] Monocyte abs 1.16(H) 0.20 - 0.80 K/cumm LEX Comment:Testing performed by : [address] [address] Eosinophil abs 0.21 0.00 - 0.50 K/cumm [facility] Comment:Testing performed by : [address] [address] Basophil abs 0.07 0.00 - 0.10 K/cumm [facility] Comment:Testing performed by : [address] [address] Neutrophil pct 66.1 % [facility] Comment: Interpretive Data Percent cell count reference ranges are not reported, since discordance with absolute values may lead to misinterpretation of CBC data. Current Interpretive Data was last revised on 2017. Testing performed by: [address] [address] Imm gran pct 2.3 % [facility] Comment: Interpretive Data Percent cell count reference ranges are not reported, since discordance with absolute values may lead to misinterpretation of CBC data. Current Interpretive Data was last revised on 2017. Testing performed by: [address] [address] Lymphocyte pct 15.9 % [facility] Comment: Interpretive Data Percent cell count reference ranges are not reported, since discordance with absolute values may lead to misinterpretation of CBC data. Current Interpretive Data was last revised on 2017. Testing performed by: [address] [address] Monocyte pct 12.6 % [facility] Comment: Interpretive Data Percent cell count reference ranges are not reported, since discordance with absolute values may lead to misinterpretation of CBC data. Current Interpretive Data was last revised on 2017. Testing performed by: [address] [address] Eosinophil pct 2.3 % [facility] Comment: Interpretive Data Percent cell count reference ranges are not reported, since discordance with absolute values may lead to misinterpretation of CBC data. Current Interpretive Data was last revised on 2017. Testing performed by: [address] [address] Basophil pct 0.8 % [facility] Comment: Interpretive Data Percent cell count reference ranges are not reported, since discordance with absolute values may lead to misinterpretation of CBC data. Current Interpretive Data was last revised on 2017. Testing performed by: [address] [address] Blood 10/31/2024 3:29 AM CDT 10/31/2024 4:39 AM CDT Gino Bryan MD LAB BLOOD ORDERABL ES Final Result [facility] [address] [facility] Department [place] [address] * (ABNORMAL) CBC with auto differential (10/31/2024 3:29 AM CDT) WBC 9.23 3.80 - 9.90 K/cumm Comment:Testing performed by : [address] [address] Hgb 10.6(L) 13.0 - 17.5 g/dL LEX Comment:Testing performed by : [address] [address] Hct 31.9(L) 38.9 - 50.3 % LEX Comment:Testing performed by : [address] [address] Plt 362 150 - 400 K/cumm LEX Comment:Testing performed by : [address] [address] MPV 10.0 9.1 - 12.3 fL LEX Comment:Testing performed by : [address] [address] RBC 4.03(L) 4.30 - 5.80 M/cumm LEX Comment:Testing performed by : [address] [address] MCV 79.2(L) 81.3 - 96.4 fL LEX Comment:Testing performed by : [address] [address] MCH 26.3(L) 27.1 - 33.3 pg LEX Comment:Testing performed by : [address] [place]., [address] MCHC 33.2 32.3 - 35.7 g/dL [facility] [place] Comment:Testing performed by : [address], [address] RDW CV 15.0(H) 11.1 - 14.9 % [facility] [place] Comment:Testing performed by : [address], [address] RDW SD 43.3 35.7 - 48.1 fL [facility] [place] Comment:Testing performed by : [address], [address] NRBC abs 0.00 0.00 - 0.01 K/cumm [facility] [place] Comment:Testing performed by : [address], [address] Blood 10/31/2024 3:29 AM CDT 10/31/2024 4:39 AM CDT Gino Bryan MD LAB BLOOD ORDERABL ES Final Result Performing Organization Address City/[facility] Co de Phone Number [address] [employer] [address] * Phosphorus (10/31/2024 3:29 AM CDT) Pathologist [facility] Phosphorus, pl 3.2 2.3 - 4.5 mg/dL Comment:Testing performed by : [address], [address] Blood 10/31/2024 3:29 AM CDT 10/31/2024 4:37 AM CDT Gino Bryan MD LAB BLOOD ORDERABL ES Final Result Performing Organization Address City/State/[facility] Co de Phone Number [address] [address] * Magnesium (10/31/2024 3:29 AM CDT) Pathologist [facility] Magnesium 1.8 1.4 - 2.5 mg/dL Comment:Testing performed by : [address] [address] Blood 10/31/2024 3:29 AM CDT 10/31/2024 4:37 AM CDT Gino Bryan MD LAB BLOOD ORDERABL ES Final Result [facility] [address] [facility] Department [place] [address] * (ABNORMAL) Comprehensive metabolic panel (10/31/2024 3:29 AM CDT) Sodium 136 135 - 145 mmol/L Comment:Testing performed by : [address] [address] Potassium, pl 4.1 3.3 - 4.9 mmol/L LEX Comment:Testing performed by : [address] [address] Chloride 102 97 - 110 mmol/L LEX Comment:Testing performed by : [address] [address] CO2 24 22 - 32 mmol/L LEX Comment:Testing performed by : [address] [address] Anion gap 10 2 - 15 mmol/L LEX Comment:Testing performed by : [address] [address] BUN 23 6 - 25 mg/dL LEX Comment:Testing performed by : [address] [address] Creatinine 0.84 0.80 - 1.30 mg/dL LEX Comment:Testing performed by : [address] [address] Glucose 229(H) 70 - 199 mg/dL LEX [...] was last revised 2022. Testing performed by: [facility], [address] [place] [address]., [address] Calcium 8.7 8.5 - 10.3 mg/dL LEX Comment:Testing performed by : [address] [address] Bilirubin, total 0.3 0.1 - 1.2 mg/dL LEX Comment:Testing performed by : [address] [address] Protein, pl 5.6(L) 6.5 - 8.5 g/dL LEX Comment:Testing performed by : [address] [address] Albumin 2.4(L) 3.5 - 5.0 g/dL LEX Comment:Testing performed by : [address] [address] Alk phos 85 40 - 130 Units/L LEX Comment:Testing performed by : [address] [address] ALT 33 7 - 55 Units/L LEX Comment:Testing performed by : [address] [address] AST 21 10 - 50 Units/L LEX Comment:Testing performed by : [address] [address] Blood 10/31/2024 3:29 AM CDT 10/31/2024 4:37 AM CDT us Gino Bryan MD LAB BLOOD ORDERABL ES Final Result [facility] [address] [facility] Department [place] [address] * POCT glucose (10/30/2024 7:52 PM CDT) Glucose, POC 105 70 - 199 mg/dL Comment:Testing performed by : [address] [address] Blood 10/30/2024 7:52 PM CDT 10/30/2024 7:52 PM CDT Gino Bryan MD LAB POCT ORDERABLE S - DEVICE Final Result Performing Organization Address [facility] Co de Phone Number [address] [employer] [address] * POCT glucose (10/30/2024 5:55 PM CDT) Glucose, POC 165 70 - 199 mg/dL Comment:Testing performed by : [address] [address] Blood 10/30/2024 5:55 PM CDT 10/30/2024 5:55 PM CDT Gino Bryan MD LAB POCT ORDERABLE S - DEVICE Final Result Performing Organization Address [facility] de Phone Number [address] [address] * (ABNORMAL) POCT glucose (10/30/2024 11:43 AM CDT) Glucose, POC 258(H) 70 - 199 mg/dL Comment:Testing performed by : [address] [address] Glucose comment 1 RN/MD Notified LEX Comment:Testing performed by : [address] [address] Blood 10/30/2024 11:4 3 AM CDT 10/30/2024 11:43 AM CDT Gino Bryan MD LAB POCT ORDERABLE S - DEVICE Final Result Performing Organization Address City/[facility] Co de Phone Number [place] [address] [facility] [place] [address] * POCT glucose (10/30/2024 10:15 AM CDT) [facility] Glucose, POC 180 70 - 199 mg/dL Comment:Testing performed by : [address] [address] Glucose comment 1 RN/MD Notified LEX Comment:Testing performed by : [address] [address] Blood 10/30/2024 10:1 5 AM CDT 10/30/2024 10:15 AM CDT Gino Bryan MD LAB POCT ORDERABLE S - DEVICE Final Result Performing Organization Address City/[facility] Co de Phone Number [place] [address] [facility] Department [place] [address] * eGFR (10/30/2024 4:07 AM CDT) [facility] eGFR 90 >=60 mL/min/1. 73 m2 Comment: [...] was last reviewed 2020. Testing performed by: [address] [address] Blood 10/30/2024 4:07 AM CDT 10/30/2024 5:23 AM CDT Gino Bryan MD LAB BLOOD ORDERABL ES Final Result [facility] [address] [facility] Department [place] [address] * (ABNORMAL) Basic metabolic panel (10/30/2024 4:07 AM CDT) Sodium 136 135 - 145 mmol/L Comment:Testing performed by : [address] [address] Potassium, pl 4.1 3.3 - 4.9 mmol/L LEX Comment:Testing performed by : [address] [address] Chloride 102 97 - 110 mmol/L LEX Comment:Testing performed by : [address] [address] CO2 21(L) 22 - 32 mmol/L LEX Comment:Testing performed by : [address] [address] Anion gap 13 2 - 15 mmol/L LEX Comment:Testing performed by : [address] [address] BUN 23 6 - 25 mg/dL LEX Comment:Testing performed by : [address] [address] Creatinine 0.81 0.80 - 1.30 mg/dL LEX Comment:Testing performed by : [address] [address] Glucose 223(H) 70 - 199 mg/dL LEX [...] was last revised 2022. Testing performed by: [address] [address] Calcium 8.9 8.5 - 10.3 mg/dL LEX Comment:Testing performed by : [address] [address] Blood 10/30/2024 4:07 AM CDT 10/30/2024 5:23 AM CDT Gino Bryan MD LAB BLOOD ORDERABL ES Final Result Performing Organization Address [facility] Co de Phone Number [place] [address] [facility] [employer] [place] [address] * POCT glucose (10/29/2024 9:59 PM CDT) Glucose, POC 155 70 - 199 mg/dL Comment:Testing performed by : [address] [address] Blood 10/29/2024 9:59 PM CDT 10/29/2024 9:59 PM CDT Gion Bryan MD LAB POCT ORDERABLE S - DEVICE Final Result Performing Organization Address City/[facility] Co de Phone Number [facility] [address] [facility] [employer] [address] * Blood culture Blood (10/29/2024 8:18 PM CDT) Report Final Report: No growth Comment:Testing performed by : [facility], [address] [facility], [place]., [address] Blood 10/29/2024 8:18 PM CDT 10/29/2024 11:47 [...] performance characteristics have been verified by the [facility]. For questions about this culture, contact the Microbiology Laboratory at [phone]. Interpretive data was last revised on 23. Gino Bryan MD LAB MICROBIOLOGY - GENERAL ORDERABLES Final Result [facility] [address] [facility] Department of Laboratories [place], [place] [address] * Blood culture Blood (10/29/2024 8:18 PM CDT) Report Final Report: No growth Comment:Testing performed by : [facility], [address] [facility], [place]., [address] Blood 10/29/2024 8:18 PM CDT 10/29/2024 11:47 [...] performance characteristics have been verified by the [facility]. For questions about this culture, contact the Microbiology Laboratory at [phone]. Interpretive data was last revised on 23. Gino Bryan MD LAB MICROBIOLOGY - GENERAL ORDERABLES Final Result Performing Organization Address City/[facility]/ZIP Co de Phone Number LEX [address] [place] [employer] [address] * (ABNORMAL) POCT glucose (10/29/2024 5:05 PM CDT) Glucose, POC 370(H) 70 - 199 mg/dL Comment:Testing performed by : [facility], [address] [place] [address]., [address] Blood 10/29/2024 5:05 PM CDT 10/29/2024 5:05 PM CDT Gino Bryan MD LAB POCT ORDERABLE S - DEVICE Final Result Performing Organization Address City/[facility]/ZIP Co de Phone Number LEX [address] [place] [employer] [address] * (ABNORMAL) POCT glucose (10/29/2024 11:37 AM CDT) Glucose, POC 304(H) 70 - 199 mg/dL Comment:Testing performed by : [address] [address] Blood 10/29/2024 11:3 7 AM CDT 10/29/2024 11:37 AM CDT Gino Bryan MD LAB POCT ORDERABLE S - DEVICE Final Result Performing Organization Address [facility] Co de Phone Number [address] [employer] [address] * Vancomycin level trough (10/29/2024 5:45 AM CDT) Pathologist [facility] Vancomycin trough 18.5 10.0 - 20.0 mcg/mL Comment:Testing performed by : [address] [address] Blood 10/29/2024 5:45 AM CDT 10/29/2024 5:58 AM CDT [employer] DO LAB BLOOD ORDERABLES Reny l Result Performing Organization Address [facility] de Phone Number [address] [employer] [address] * (ABNORMAL) POCT glucose (10/28/2024 10:26 PM CDT) Glucose, POC 278(H) 70 - 199 mg/dL Comment:Testing performed by : [address] [address] Glucose comment 1 Follow Protocol LEX Comment:Testing performed by : [address] [address] Blood 10/28/2024 10:2 6 PM CDT 10/28/2024 10:26 PM CDT Garrett Nikhil Desirae DO LAB POCT ORDERABLES - DEV ICE Final Result Performing Organization Address [facility] Co de Phone Number [facility] [address] [place] [address] * (ABNORMAL) POCT glucose (10/28/2024 7:55 PM CDT) Glucose, POC 451(C) 70 - 199 mg/dL Comment:Testing performed by : [facility], [address] [place] [address]., [address] Glucose comment 1 RN/MD Notified LEX Comment:Testing performed by : [address] [address] Blood 10/28/2024 7:55 PM CDT 10/28/2024 7:55 PM CDT [employer] DO LAB POCT ORDERABLES - DEV ICE Final Result Performing Organization Address [facility]/ZIP Co de Phone Number [place] [address] [place] [address] * (ABNORMAL) POCT glucose (10/28/2024 3:29 PM CDT) Glucose, POC 350(H) 70 - 199 mg/dL Comment:Testing performed by : [address] [address] Blood 10/28/2024 3:29 PM CDT 10/28/2024 3:29 PM CDT Garrett [employer] Desirae DO LAB POCT ORDERABLES - DEV ICE Final Result [place] [address] [place] [address] * (ABNORMAL) POCT glucose (10/28/2024 11:17 AM CDT) Glucose, POC 216(H) 70 - 199 mg/dL Comment:Testing performed by : [address] [address] Blood 10/28/2024 11:1 7 AM CDT 10/28/2024 11:17 AM CDT us Garrett Merrill DO LAB POCT ORDERABLES - DEV ICE Final Result [facility] [address] [facility] Department [place] [address] * XR Chest 1 View (10/28/2024 10:06 [...] the left has increased compared to the training coordinator image from recent CT. Opacities on the [...] worsening of left-sided can opacities compared to training coordinator image from CT scan on 10/26/2024 with [...] Leonela Sierra M.D. TW: JOHN Report ID: [id number] Reading Location: [id number] Procedure Note Leonela Sierra MD - 10/28/2024 EXAM DESCRIPTION: XR CHEST 1 VIEW REASON FOR STUDY: dyspnea Pt states sob today TECHNIQUE: AP portable radiographic view(s) of the chest. COMPARISON: CT dated 10/26/2024 and 02/23/2024. Radiograph dated1. FINDINGS: LUNGS: There are extensive bilateral pulmonary opacitiesthroughout the lungs, left greater than right. Opacity on the left has increased compared to the training coordinator image from recent CT. Opacities on the [...] Leonela Sierra M.D. TW: TW Report ID: [id number] Reading Location: [id number] us Garrett Merrill DO IMG XR PROCEDURES [...] AM Ht(Inch): 74 Wt(Lb): 147 BSA: 1.87 Metal Control Worker: Kasandra Gates RDCS Location: [place] [address] Order Provider: PATIENCE BARNETT Heart Rate: 67 BMI: 18.87 BP: 153 / 55 Ref Provider: PATIENCE BARNETT PROCEDURES: Echocardiographic Report: ([id number]) Transthoracic complete echo with contrast, 2D, spectral [...] AM Ht(Inch): 74 Wt(Lb): 147 BSA: 1.87 Metal Control Worker: Kasandra Gates RDCS Location: [place] [address] Order Provider:PATIENCE BARNETT Heart Rate: 67 BMI: 18.87 BP: 153 / 55 Ref Provider: PATIENCE BARNETT PROCEDURES: Echocardiographic Report: ([id number]) Transthoracic complete echo withcontrast, 2D, spectral and [...] was last reviewed 2020. Testing performed by: [address] [address] Blood 10/28/2024 6:33 AM CDT 10/28/2024 6:42 AM CDT us Patience Barnett NP LAB BLOOD ORDERABLES Final R esult LEX [address] [facility] Department [place] [address] * (ABNORMAL) Differential, auto (10/28/2024 6:33 AM CDT) Neutrophil abs 9.32(H) 1.50 - 6.50 K/cumm Comment:Testing performed by : [address] [address] Imm gran abs 0.07 0.00 - 0.10 K/cumm LEX [place] Comment:Testing performed by : [address] [address] Lymphocyte abs 1.02 0.80 - 3.30 K/cumm LEX Comment:Testing performed by : [address] [address] Monocyte abs 0.47 0.20 - 0.80 K/cumm LEX Comment:Testing performed by : [address], [place]., [address] Eosinophil abs 0.14 0.00 - 0.50 K/cumm [facility] Comment:Testing performed by : [address], [place]., [address] Basophil abs 0.05 0.00 - 0.10 K/cumm [facility] Comment:Testing performed by : [address] [address] Neutrophil pct 84.2 % [facility] Comment: Interpretive Data Percent cell count reference ranges are not reported, since discordance with absolute values may lead to misinterpretation of CBC data. Current Interpretive Data was last revised on 2017. Testing performed by: [address] [address] Imm gran pct 0.6 % [facility] Comment: Interpretive Data Percent cell count reference ranges are not reported, since discordance with absolute values may lead to misinterpretation of CBC data. Current Interpretive Data was last revised on 2017. Testing performed by: [address] [address] Lymphocyte pct 9.2 % [facility] Comment: Interpretive Data Percent cell count reference ranges are not reported, since discordance with absolute values may lead to misinterpretation of CBC data. Current Interpretive Data was last revised on 2017. Testing performed by: [address] [address] Monocyte pct 4.2 % [facility] Comment: Interpretive Data Percent cell count reference ranges are not reported, since discordance with absolute values may lead to misinterpretation of CBC data. Current Interpretive Data was last revised on 2017. Testing performed by: [address] [address] Eosinophil pct 1.3 % [facility] Comment: Interpretive Data Percent cell count reference ranges are not reported, since discordance with absolute values may lead to misinterpretation of CBC data. Current Interpretive Data was last revised on 2017. Testing performed by: [address] [address] Basophil pct 0.5 % ELX [facility] Comment: Interpretive Data Percent cell count reference ranges are not reported, since discordance with absolute values may lead to misinterpretation of CBC data. Current Interpretive Data was last revised on 2017. Testing performed by: [address] [address] Blood 10/28/2024 6:33 AM CDT 10/28/2024 6:43 AM CDT us Patience Barnett NP LAB BLOOD ORDERABLES Final R esult LEX [place] [address] [facility] Department [place] [address] * (ABNORMAL) CBC with auto differential (10/28/2024 6:33 AM CDT) WBC 11.07(H) 3.80 - 9.90 K/cumm Comment:Testing performed by : [address] [address] Hgb 9.7(L) 13.0 - 17.5 g/dL LEX [place] Comment:Testing performed by : [address] [address] Hct 30.4(L) 38.9 - 50.3 % [facility] [place] Comment:Testing performed by : [address] [address] Plt 231 150 - 400 K/cumm LEX [place] Comment:Testing performed by : [address] [address] MPV 9.8 9.1 - 12.3 fL [facility]EX [place] Comment:Testing performed by : [address] [address] RBC 3.81(L) 4.30 - 5.80 M/cumm LEX [place] Comment:Testing performed by : [address] [address] MCV 79.8(L) 81.3 - 96.4 fL LEX Comment:Testing performed by : [address] [address] MCH 25.5(L) 27.1 - 33.3 pg LEX [place] Comment:Testing performed by : [address] [address] MCHC 31.9(L) 32.3 - 35.7 g/dL LEX Comment:Testing performed by : [address], [address] RDW CV 15.1(H) 11.1 - 14.9 % LEX Comment:Testing performed by : [address], [address] RDW SD 43.9 35.7 - 48.1 fL LEX Comment:Testing performed by : [address], [address] NRBC abs 0.00 0.00 - 0.01 K/cumm LEX Comment:Testing performed by : [address], [address] Blood 10/28/2024 6:33 AM CDT 10/28/2024 6:43 AM CDT us Patience Barnett [employer]PUTER [employer]WORK[employer] LAB BLOOD ORDERABLES Final R esult [facility] Department [place] [address] * (ABNORMAL) Vancomycin level trough (10/28/2024 6:33 AM CDT) Pathologist [facility] Vancomycin trough 5.6(L) 10.0 - 20.0 mcg/mL Comment:Testing performed by : [address], [address] Blood 10/28/2024 6:33 AM CDT 10/28/2024 6:42 AM CDT us Garrett Merrill DO LAB BLOOD ORDERABLES Reny l Result LEX 6798 [facility] Department [place] [address] * (ABNORMAL) Comprehensive metabolic panel (10/28/2024 6:33 AM CDT) Sodium 137 135 - 145 mmol/L Comment:Testing performed by : [address] [address] Potassium, pl 3.9 3.3 - 4.9 mmol/L LEX Comment:Testing performed by : [address] [address] Chloride 110 97 - 110 mmol/L LEX Comment:Testing performed by : [address] [address] CO2 20(L) 22 - 32 mmol/L LEX Comment:Testing performed by : [address] [address] Anion gap 7 2 - 15 mmol/L LEX Comment:Testing performed by : [address] [address] BUN 19 6 - 25 mg/dL LEX Comment:Testing performed by : [address] [address] Creatinine 0.99 0.80 - 1.30 mg/dL LEX Comment:Testing performed by : [address] [address] Glucose 154 70 - 199 mg/dL LEX [...] was last revised 2022. Testing performed by: [address] [address] Calcium 8.5 8.5 - 10.3 mg/dL LEX Comment:Testing performed by : [address] [address] Bilirubin, total 0.7 0.1 - 1.2 mg/dL LEX Comment:Testing performed by : [address] [address] Protein, pl 5.5(L) 6.5 - 8.5 g/dL LEX Comment:Testing performed by : [address] [address] Albumin 2.4(L) 3.5 - 5.0 g/dL LEX Comment:Testing performed by : [address] [address] Alk phos 75 40 - 130 Units/L LEX Comment:Testing performed by : [address] [address] ALT 5(L) 7 - 55 Units/L LEX Comment:Testing performed by : [address] [address] AST 10 10 - 50 Units/L [facility] Comment:Testing performed by : [address] [address] Blood 10/28/2024 6:33 AM CDT 10/28/2024 6:42 AM CDT Patience Barnett NP LAB BLOOD ORDERABLES Final R esult LEX 9997 [facility] Department of Laboratories [place], [place] [id number] * POCT glucose (10/27/2024 7:34 PM CDT) [facility] Signature Glucose, POC 180 70 - 199 mg/dL Comment:Testing performed by : [address] [address] Blood 10/27/2024 7:34 PM CDT 10/27/2024 7:34 PM CDT us [employer] Desirae DO LAB POCT ORDERABLES - DEV ICE Final Result Performing Organization Address [facility] Co de Phone Number LEX [address] [facility] [employer] [address] * POCT glucose (10/27/2024 5:01 PM CDT) Glucose, POC 183 70 - 199 mg/dL Comment:Testing performed by : [address] [address] Glucose comment 1 RN/MD Notified LEX [place] Comment:Testing performed by : [address] [address] Glucose comment 2 Follow Protocol LEX Comment:Testing performed by : [address] [address] Blood 10/27/2024 5:01 PM CDT 10/27/2024 5:01 PM CDT [employer] DO LAB POCT ORDERABLES - DEV ICE Final Result Performing Organization Address [facility] Co de Phone Number LEX [address] [facility] [employer] [address] * POCT glucose (10/27/2024 11:31 AM CDT) Glucose, POC 199 70 - 199 mg/dL Comment:Testing performed by : [address] [address] Glucose comment 1 RN/MD Notified LEX Comment:Testing performed by : [address] [address] Glucose comment 2 Follow Protocol LEX Comment:Testing performed by : [address] [address] Blood 10/27/2024 11:3 1 AM CDT 10/27/2024 11:31 AM CDT us [employer] Desirae DO LAB POCT ORDERABLES - DEV ICE Final Result Performing Organization Address [facility] Co de Phone Number LEX [facility] [place] [employer] [address] * (ABNORMAL) Lactate (10/27/2024 10:03 AM CDT) Lactate 2.2(H) 0.7 - 2.0 mmol/L Comment:Testing performed by : [address] [address] Blood 10/27/2024 10:0 3 AM CDT 10/27/2024 10:15 AM CDT Patience Barnett NP LAB BLOOD ORDERABLES Final R esult Performing Organization Address [facility] Co de Phone Number LEX [facility] [place] [address] * eGFR (10/27/2024 10:03 AM CDT) eGFR [...] was last reviewed 2020. Testing performed by: [address] [address] Blood 10/27/2024 10:0 3 AM CDT 10/27/2024 10:16 AM CDT us Patience Chackooft [employer]WORKING [employer] LAB BLOOD ORDERABLES Final R esult LEX 0640 [facility] Department [place] [address] * (ABNORMAL) Differential, auto (10/27/2024 10:03 AM CDT) Neutrophil abs 14.47(H) 1.50 - 6.50 K/cumm Comment:Testing performed by : [address] [address] Imm gran abs 0.12(H) 0.00 - 0.10 K/cumm LEX Comment:Testing performed by : [address] [address] Lymphocyte abs 1.70 0.80 - 3.30 K/cumm LEX Comment:Testing performed by : [address] [address] Monocyte abs 0.62 0.20 - 0.80 K/cumm LEX Comment:Testing performed by : [address] [address] Eosinophil abs 0.05 0.00 - 0.50 K/cumm LEX Comment:Testing performed by : [address] [address] Basophil abs 0.09 0.00 - 0.10 K/cumm LEX Comment:Testing performed by : [address] [address] Neutrophil pct 84.9 % LEX Comment: Interpretive Data Percent cell count reference ranges are not reported, since discordance with absolute values may lead to misinterpretation of CBC data. Current Interpretive Data was last revised on 2017. Testing performed by: [address] [address] Imm gran pct 0.7 % LEX Comment: Interpretive Data Percent cell count reference ranges are not reported, since discordance with absolute values may lead to misinterpretation of CBC data. Current Interpretive Data was last revised on 2017. Testing performed by: [address] [address] Lymphocyte pct 10.0 % [facility] Comment: Interpretive Data Percent cell count reference ranges are not reported, since discordance with absolute values may lead to misinterpretation of CBC data. Current Interpretive Data was last revised on 2017. Testing performed by: [address] [address] Monocyte pct 3.6 % [facility] Comment: Interpretive Data Percent cell count reference ranges are not reported, since discordance with absolute values may lead to misinterpretation of CBC data. Current Interpretive Data was last revised on 2017. Testing performed by: [address] [address] Eosinophil pct 0.3 % [facility] Comment: Interpretive Data Percent cell count reference ranges are not reported, since discordance with absolute values may lead to misinterpretation of CBC data. Current Interpretive Data was last revised on 2017. Testing performed by: [address] [address] Basophil pct 0.5 % [facility] Comment: Interpretive Data Percent cell count reference ranges are not reported, since discordance with absolute values may lead to misinterpretation of CBC data. Current Interpretive Data was last revised on 2017. Testing performed by: [address] [address] Blood 10/27/2024 10:0 3 AM CDT 10/27/2024 10:15 AM CDT us Patience Barnett COMPUTER [employer]WORKING [employer] LAB BLOOD ORDERABLES Final R esult LEX 1668 [facility] Department [place] [address] * (ABNORMAL) Iron profile w/ IBC (10/27/2024 10:03 AM CDT) Iron 12(L) 50 - 150 mcg/dL Comment:Testing performed by : [address] [address] TIBC 204(L) 250 - 400 mcg/dL LEX Comment:Testing performed by : [address] [address] Transferrin saturation 6(L) 20 - 50 % LEX [place] Comment:Testing performed by : [address] [address] Blood 10/27/2024 10:0 3 AM CDT 10/27/2024 10:16 AM CDT us Patience Barnett NP LAB BLOOD ORDERABLES Final R esult LEX 4500 [facility] Department of Laboratories [place], [place] [id number] * (ABNORMAL) CBC with auto differential (10/27/2024 10:03 AM CDT) WBC 17.05(H) 3.80 - 9.90 K/cumm Comment:Testing performed by : [address] [address] Hgb 12.0(L) 13.0 - 17.5 g/dL LEX [place] Comment:Testing performed by : [address] [address] Hct 37.7(L) 38.9 - 50.3 % LEX [place] Comment:Testing performed by : [address] [address] Plt 241 150 - 400 K/cumm LEX Comment:Testing performed by : [address] [address] MPV 9.7 9.1 - 12.3 fL LEX [place] Comment:Testing performed by : [address] [address] RBC 4.52 4.30 - 5.80 M/cumm LEX [place] Comment:Testing performed by : [address] [address] MCV 83.4 81.3 - 96.4 fL LEX [place] Comment:Testing performed by : [address] [address] MCH 26.5(L) 27.1 - 33.3 pg LEX [place] Comment:Testing performed by : [address] [address] MCHC 31.8(L) 32.3 - 35.7 g/dL LEX [place] Comment:Testing performed by : [address] [address] RDW CV 15.3(H) 11.1 - 14.9 % LEX [place] Comment:Testing performed by : [address] [address] RDW SD 45.6 35.7 - 48.1 fL LEX [place] Comment:Testing performed by : [address] [address] NRBC abs 0.00 0.00 - 0.01 K/cumm LEX Comment:Testing performed by : [address], [address] Blood 10/27/2024 10:0 3 AM CDT 10/27/2024 10:15 AM CDT Patience Lincoln COMPUTER NETWORKING INSTRUCTOR [employer] LAB BLOOD ORDERABLES Final R esult Performing Organization Address City/[facility] Co de Phone Number [address] [place] [address] * Magnesium (10/27/2024 10:03 AM CDT) Magnesium 1.7 1.4 - 2.5 mg/dL Comment:Testing performed by : [address] [address] Blood 10/27/2024 10:0 3 AM CDT 10/27/2024 10:16 AM CDT Patience Lincoln COMPUTER NETWORKING INSTRUCTOR [employer] LAB BLOOD ORDERABLES Final R esult Performing Organization Address City/[facility]/ZIP Co de Phone Number [address] [employer] [address] * (ABNORMAL) Comprehensive metabolic panel (10/27/2024 10:03 AM CDT) Sodium 141 135 - 145 mmol/L Comment:Testing performed by : [address] [address] Potassium, pl 4.0 3.3 - 4.9 mmol/L LEX Comment:Testing performed by : [address] [address] Chloride 113(H) 97 - 110 mmol/L LEX Comment:Testing performed by : [address], [place]., [address] CO2 20(L) 22 - 32 mmol/L LEX Comment:Testing performed by : [address] [address] Anion gap 8 2 - 15 mmol/L LEX Comment:Testing performed by : [address] [address] BUN 18 6 - 25 mg/dL LEX Comment:Testing performed by : [address] [address] Creatinine 1.04 0.80 - 1.30 mg/dL LEX Comment:Testing performed by : [address] [address] Glucose 123 70 - 199 mg/dL LEX [...] was last revised 2022. Testing performed by: [address] [address] Calcium 8.6 8.5 - 10.3 mg/dL LEX Comment:Testing performed by : [address] [address] Bilirubin, total 0.9 0.1 - 1.2 mg/dL LEX [place] Comment:Testing performed by : [address] [address] Protein, pl 6.2(L) 6.5 - 8.5 g/dL LEX [place] Comment:Testing performed by : [address] [address] Albumin 2.8(L) 3.5 - 5.0 g/dL LEX Comment:Testing performed by : [address] [address] Alk phos 95 40 - 130 Units/L LEX Comment:Testing performed by : [address] [address] ALT 5(L) 7 - 55 Units/L LEX Comment:Testing performed by : [address] [address] AST 12 10 - 50 Units/L LEX Comment:Testing performed by : [address] [address] Blood 10/27/2024 10:0 3 AM CDT 10/27/2024 10:16 AM CDT us Patience Barnett NP LAB BLOOD ORDERABLES Final R esult LEX 5352 [facility] Department [place] [address] * POCT glucose (10/27/2024 7:54 AM CDT) Glucose, POC 128 70 - 199 mg/dL Comment:Testing performed by : [address] [address] Glucose comment 1 RN/MD Notified LEX [place] Comment:Testing performed by : [address] [address] Glucose comment 2 Follow Protocol LEX Comment:Testing performed by : [address] [address] Blood 10/27/2024 7:54 AM CDT 10/27/2024 7:54 AM CDT Garrett Nikhil Desirae DO LAB POCT ORDERABLES - DEV ICE Final Result Performing Organization Address [facility] Co de Phone Number LEX [address] [employer] [address] * (ABNORMAL) Sepsis Lactate w/ Reflex (10/26/2024 8:33 PM CDT) Pathologist [facility] Sepsis Lactate 3.9(H) 0.7 - 2.0 mmol/L Comment:Testing performed by : [address] [address] Blood 10/26/2024 8:33 PM CDT 10/26/2024 8:41 PM CDT Katie Mason MD LAB BLOOD ORDERABLES F inal Result Performing Organization Address [facility] Co de Phone Number LEX [address] [address] * POCT glucose (10/26/2024 7:11 PM CDT) [facility] Glucose, POC 189 70 - 199 mg/dL Comment:Testing performed by : [address] [address] Blood 10/26/2024 7:11 PM CDT 10/26/2024 7:11 PM CDT Garrett Merrill DO LAB POCT ORDERABLES - DEV ICE Final Result Performing Organization Address [facility] Co de Phone Number LEX [address] [address] * (ABNORMAL) Sepsis Lactate w/ Reflex (10/26/2024 5:37 PM CDT) Pathologist [facility] Sepsis Lactate 2.4(H) 0.7 - 2.0 mmol/L Comment:Testing performed by : [address] [address] Blood 10/26/2024 5:37 PM CDT 10/26/2024 5:48 PM CDT us Katie Mason MD LAB BLOOD ORDERABLES F inal Result [facility] [address] [facility] Department of Laboratories [place], [place] [id number] * (ABNORMAL) Urinalysis reflex to microscopic and culture Urine (10/26/2024 4:43 PM CDT) Color, ur Yellow Yellow Comment:Testing performed by : [address] [address] Clarity, ur Clear Clear LEX Comment:Testing performed by : [address] [address] Specific gravity, ur >1.050(A) 1.003 - 1.030 LEX Comment:Testing performed by : [address] [address] pH, urine 5.5 LEX Comment: Interpretive Data U rine pH is affected by diet, medications, systemic acid-base disturbances, and renal tubular function. pH may affect urinary stone formation. For example, urine pH below 6.0 may help reduce the tendency for calcium phosphate stones and pH greater than 6.0 may reduce the tendency for uric acid stone formation. Source: [facility] [employer] Current Interpretive Data was last revised on 2017 Testing performed by: [address] [address] Protein, ur ql Trace(A) Negative LEX Comment:Testing performed by : [address] [address] Glucose, ur ql 2+(A) Negative LEX Comment:Testing performed by : [address] [address] Ketones, ur Negative Negative LEX Comment:Testing performed by : [address] [address] Bilirubin, ur Negative Negative LEX [place] Comment:Testing performed by : [address], [place]., [address] Blood, ur Negative Negative LEX [place] Comment:Testing performed by : [address], [place]., [address] Urobilinogen, ur <2.0 <2.0 mg/dL LEX [place] Comment:Testing performed by : [address], [place]., [address] Nitrite, ur Negative Negative LEX [place] Comment:Testing performed by : [address], [place]., [address] Leukocyte esterase, ur Negative Negative LEX [place] Comment:Testing performed by : [address], [place]., [address] UA reflex comment Reflex to microscopic UA will be performed. LEX [place] Comment:Testing performed by : [address], [place]., [address] Urine 10/26/2024 4:43 PM CDT 10/26/2024 4:52 PM CDT us Katie Mason MD LAB MICROBIOLOGY - GEN ERAL ORDERABLES Final Result LEX [place] [address] [facility] Department of Laboratories [place], [place] [id number] * (ABNORMAL) Urinalysis, microscopic only (10/26/2024 4:43 PM CDT) WBC, ur 0-5 0 - 5 /HPF Comment:Testing performed by : [address] [address] RBC, ur 0-2 0 - 2 /HPF LEX [place] Comment:Testing performed by : [address] [address] Epithelial cells, squamous, ur 1-5 0 - 5 /HPF LEX [place] Comment:Testing performed by : [address], [place]., [address] Mucous, ur Present(A) LEX [place] Comment:Testing performed by : [address], [place]., [address] Culture Reflex Comment Reflex conditions for urine culture (WBC >10) not met. LEX Comment:Testing performed by : [address] [address] Urine 10/26/2024 4:43 PM CDT 10/26/2024 4:52 PM CDT Katie Mason MD LAB URINE ORDERABLES F inal Result Performing Organization Address City/[facility] Co de Phone Number LEX [address] [facility] [employer] [address] * Troponin T high-sensitivity 2-hour (10/26/2024 4:05 PM CDT) Pathologist [facility] Trop T hs 16 <=22 ng/L Comment: Interpretive Data For further hscTnT resources including the diagnostic algorithm and an aid in interpretation, copy and paste this link: https://nrl.testcatalog.org/show/hsTrop Current Interpretive Data last revised 2019. Testing performed by: [address] [address] Trop T hs delta -2 ng/L LEX Comment:Testing performed by : [address] [address] Trop T hs interp Insignificant LEX Comment:Testing performed by : [address] [address] Blood 10/26/2024 4:05 PM CDT 10/26/2024 4:12 PM CDT Katie Mason MD LAB BLOOD ORDERABLES F inal Result Performing Organization Address City/[facility] Co de Phone Number LEX [address] [facility] [employer] [place], [place] [id number] * (ABNORMAL) Lipase (10/26/2024 4:05 PM CDT) Pathologist [facility] Lipase 9(L) 10 - 99 Units/L Comment:Testing performed by : [address] [place] [address] Blood 10/26/2024 4:05 PM CDT 10/26/2024 4:12 PM CDT us Katie Mason MD LAB BLOOD ORDERABLES F inal Result LEX [facility] Department [place] [address] * CT Chest Abdomen Pelvis W Contrast [...] Talya Brooke M.D. LL: TEX Report ID: [id number] Reading Location: [id number] Procedure Note Talya Brooke MD - 10/26/2024 [...] Talya Brooke M.D. LL: LL Report ID: [id number] Reading Location: [place] [address] Katie Mason MD IMG CT PROCEDURES Reny l Result * (ABNORMAL) Blood culture Blood Peripheral (10/26/2024 2:57 PM CDT) Pathologist [facility] Direct Specimen Exam Molecular Analysis: Presumptive Streptococcus pneumoniae detected by annie [employer] BCID-GP panel. Please consider this result in the context of clinical findings and the final, culture-based result. This test does not exclude the possibility of a mixed bacterial infection. Notification of: Presumptive Streptococcus pneumoniae called to and read back by: Bertha Avelar MLS ([phone]) on 10/27/2024 07:29:31 by: Miriam Ponce MT Comment:Testing performed by : [facility], [address] [facility] [place]., [address] Direct Specimen Exam Stain: Gram Positive Cocci in pairs and chains Time to culture positivity (aerobic media): 10.7 hours Time to culture positivity (anaerobic media): 11.6 hours Notification of: Gram Positive Cocci in pairs and chains called to and read back by: Fela Mclean T[employer]NEL E[employer]IC [employer]PERATOR [id number] [phone] on 10/27/2024 05:31:06 by: Sarabjit Lan MT Test result called to and read back by [id number] on 10/27/2024 05:34:24 by [id number] LEX [place] Comment:Testing performed by : [facility], [address] [place]., [address] Report Final Report: Streptococcus pneumoniae Moxifloxacin susceptibility results can be inferred from gatifloxacin susceptibility testing. (.) LEX [place] Comment:Testing performed by : [facility], [address] [place]., [address] Organism STREPTOCOCCUS PNEUMONIAE LEX Blood (Peripheral) 10/26/2024 [...] performance characteristics have been verified by the [facility]. For questions about this culture, contact the Microbiology Laboratory at [phone]. Interpretive data was last revised on 23. [...] - GEN ERAL ORDERABLES Final Result LEX [address] [facility] Department [place] [address] * (ABNORMAL) Blood culture Blood Peripheral (10/26/2024 2:57 PM CDT) Direct Specimen Exam Stain: Gram Positive Cocci in pairs and chains Time to culture positivity (anaerobic media): 12.2 hours Comment:Testing performed by : [facility], [address] [place]., [address] Report Final Report: Streptococcus pneumoniae For susceptibility results, refer to accession number [id number] on the blood culture from 10/26/2024 (.) LEX SILVESTRE Comment:Testing performed by : [facility], [address] [place] [address]., [address] Organism STREPTOCOCCUS PNEUMONIAE LEX Blood (Peripheral) 10/26/2024 [...] performance characteristics have been verified by the [facility]. For questions about this culture, contact the Microbiology Laboratory at [phone]. Interpretive data was last revised on 23. Katie Mason MD LAB MICROBIOLOGY - GEN ERAL ORDERABLES Final Result Performing Organization Address [facility] Co de Phone Number LEX [address] [place] [address] * aPTT (10/26/2024 2:57 PM CDT) aPTT 30 22 - 37 sec Comment: Interpretive data aPTT test has not been evaluated for monitoring heparin therapy. The anti-Xa is the preferred test. Current interpretive data was last revised on 2019. Testing performed by: [address] [address] Blood 10/26/2024 2:57 PM CDT 10/26/2024 3:02 PM CDT Katie Mason MD LAB BLOOD ORDERABLES F inal Result Performing Organization Address [facility] Co de Phone Number [facility] [address] [place] [address] * (ABNORMAL) Protime-INR (10/26/2024 2:57 PM CDT) PT 18.0(H) 12.0 - 14.6 sec Comment:Testing performed by : [address] [address] INR 1.5(H) 0.9 - 1.2 LEX Comment: Interpretive data Oral anticoagulant therapeutic ranges: Venous thromboembolism prophylaxis or treatment: 2.0-3.0 CARDIOLOGY Standard range: 2.0-3.0 High-intensity range: 2.5-3.5 Refer to indication-specific guidelines for appropriate target ranges for prosthetic heart valve replacement. Current interpretive data was last revised on 2019. Testing performed by: [address] [address] Blood 10/26/2024 2:57 PM CDT 10/26/2024 3:02 PM CDT Katie Mason MD LAB BLOOD ORDERABLES F inal Result LEX [facility] Department [place] [address] * ECG 12 lead (10/26/2024 2:44 PM CDT) Pathologist [facility] Ventricular Rate EKG/Min 94 BPM [facility] Atrial Rate 94 BPM [facility] LA-Interval (MSEC) 204 ms [facility] QRS-Interval (MSEC) 130 ms [facility] QT-Interval (MSEC) 384 ms [facility] QTc 480 ms [facility] P [place] 70 degrees [facility] R [place] 63 degrees [facility] T [place] 60 degrees [facility] Diagnosis Normal sinus rhythm Right bundle branch block Abnormal ECG When compared with ECG of 17-FEB-2024 11:10, Premature atrial complexes are no longer Present Right bundle branch block is now Present Criteria for Inferior infarct are no longer Present Confirmed by KATHLEEN POPE M.D. ([id number]) on 10/29/2024 2:04:32 PM [facility] 10/26/2024 2:44 PM CDT 10/29/2024 2:04 PM CDT us Katie Mason MD ECG ORDERABLES Final Result Performing Organization Address [facility]/ZIP Co de Phone Number [facility] * Influenza A/B, RSV, and COVID-19 PCR Nasopharyngeal (10/26/2024 2:36 PM CDT) [facility] COVID-19 RNA Negative Negative Comment:Testing performed by : [facility], [address] [place] [address]., [address] Influenza A RNA Negative Negative LEX Comment:Testing performed by : [address] [address] Influenza B RNA Negative Negative LEX Comment:Testing performed by : [address] [address] RSV RNA Negative Negative [facility] Comment: Interpretive data: Testing performed by [facility]. This test is performed using the [employer] Xpert Xpress CoV-2/Flu/RSV plus assay. This is a multiplex, real-time reverse transcriptase PCR assay intended for the qualitative detection of nucleic acid from SARS-CoV-2, influenza A, influenza B, and respiratory syncytial virus. This assay has been cleared by the [place] Food and Drug administration. The performance characteristics have been verified by the [facility]. Results must be considered in the clinical context, and a negative result does not rule out infection. Interpretive Data last revised 2023 Testing performed by: [address] [address] Nasopharyngeal 10/26/2024 2: 36 PM CDT 10/26/2024 2:39 PM CDT Narrative LEX - 10/26/2024 3:25 PM CDT Is the Patient experiencing symptoms consistent with COVID?->Yes Katie Mason MD LAB MICROBIOLOGY - GEN ERAL ORDERABLES Final Result [facility] [address] [facility] Department [place] [address] * (ABNORMAL) Sepsis Lactate w/ Reflex (10/26/2024 2:36 PM CDT) Sepsis Lactate 2.5(H) 0.7 - 2.0 mmol/L Comment:Testing performed by : [address] [address] Blood 10/26/2024 2:36 PM CDT 10/26/2024 2:39 PM CDT Katie Mason MD LAB BLOOD ORDERABLES F inal Result Performing Organization Address [facility] de Phone Number LEX [facility] [place] [address] * Troponin T high-sensitivity series (baseline, 2hr, 4hr, 6hr) (10/26/2024 2:04 PM CDT) Trop T hs 18 <=22 ng/L Comment: Interpretive Data For further hscTnT resources including the diagnostic algorithm and an aid in interpretation, copy and paste this link: https://nrl.testcatalog.org/show/hsTrop Current Interpretive Data last revised 2019. Testing performed by: [facility], [address] [place] [address]., [address] Blood 10/26/2024 2:04 PM CDT 10/26/2024 2:10 PM CDT us Katie Mason MD LAB BLOOD ORDERABLES F inal Result Performing Organization Address [facility] Co de Phone Number LEX [facility] [place] [address] * eGFR (10/26/2024 2:04 PM CDT) eGFR [...] was last reviewed 2020. Testing performed by: [address] [address] Blood 10/26/2024 2:04 PM CDT 10/26/2024 2:10 PM CDT us Katie Mason MD LAB BLOOD ORDERABLES F inal Result [facility] [address] [facility] Department [place] [address] * (ABNORMAL) Differential, auto (10/26/2024 2:04 PM CDT) Neutrophil abs 14.62(H) 1.50 - 6.50 K/cumm Comment:Testing performed by : [address] [address] Imm gran abs 0.06 0.00 - 0.10 K/cumm LEX Comment:Testing performed by : [address] [address] Lymphocyte abs 0.43(L) 0.80 - 3.30 K/cumm LEX Comment:Testing performed by : [address] [address] Monocyte abs 0.38 0.20 - 0.80 K/cumm LEX Comment:Testing performed by : [address] [address] Eosinophil abs 0.00 0.00 - 0.50 K/cumm LEX Comment:Testing performed by : [address] [address] Basophil abs 0.03 0.00 - 0.10 K/cumm LEX Comment:Testing performed by : [address] [address] Neutrophil pct 94.2 % LEX Comment: Interpretive Data Percent cell count reference ranges are not reported, since discordance with absolute values may lead to misinterpretation of CBC data. Current Interpretive Data was last revised on 2017. Testing performed by: [address] [address] Imm gran pct 0.4 % [facility] Comment: Interpretive Data Percent cell count reference ranges are not reported, since discordance with absolute values may lead to misinterpretation of CBC data. Current Interpretive Data was last revised on 2017. Testing performed by: [address] [address] Lymphocyte pct 2.8 % [facility] Comment: Interpretive Data Percent cell count reference ranges are not reported, since discordance with absolute values may lead to misinterpretation of CBC data. Current Interpretive Data was last revised on 2017. Testing performed by: [address] [address] Monocyte pct 2.4 % [facility] Comment: Interpretive Data Percent cell count reference ranges are not reported, since discordance with absolute values may lead to misinterpretation of CBC data. Current Interpretive Data was last revised on 2017. Testing performed by: [address] [address] Eosinophil pct 0.0 % [facility] Comment: Interpretive Data Percent cell count reference ranges are not reported, since discordance with absolute values may lead to misinterpretation of CBC data. Current Interpretive Data was last revised on 2017. Testing performed by: [address] [address] Basophil pct 0.2 % [facility] Comment: Interpretive Data Percent cell count reference ranges are not reported, since discordance with absolute values may lead to misinterpretation of CBC data. Current Interpretive Data was last revised on 2017. Testing performed by: [address] [address] Blood 10/26/2024 2:04 PM CDT 10/26/2024 2:10 PM CDT us Katie Mason MD LAB BLOOD ORDERABLES F inal Result [facility] [address] [facility] Department [place] [address] * (ABNORMAL) Pro B-type natriuretic peptide (10/26/2024 [...] Last Revised Date: 2017. Testing performed by: [facility], [address] [place] [address]., [address] Blood 10/26/2024 2:04 PM CDT 10/26/2024 2:10 PM CDT us Katie Mason MD LAB BLOOD ORDERABLES F inal Result [facility] [address] [facility] Department [place] [address] * (ABNORMAL) CBC with auto differential (10/26/2024 2:04 PM CDT) [facility] WBC 15.52(H) 3.80 - 9.90 K/cumm Comment:Testing performed by : [address] [address] Hgb 11.7(L) 13.0 - 17.5 g/dL LEX Comment:Testing performed by : [address] [address] Hct 35.9(L) 38.9 - 50.3 % LEX Comment:Testing performed by : [address] [address] Plt 242 150 - 400 K/cumm LEX Comment:Testing performed by : [address] [address] MPV 9.5 9.1 - 12.3 fL LEX Comment:Testing performed by : [address], [address] RBC 4.51 4.30 - 5.80 M/cumm LEX Comment:Testing performed by : [address] [address] MCV 79.6(L) 81.3 - 96.4 fL LEX Comment:Testing performed by : [address] [address] MCH 25.9(L) 27.1 - 33.3 pg LEX Comment:Testing performed by : [address] [address] MCHC 32.6 32.3 - 35.7 g/dL LEX Comment:Testing performed by : [address] [address] RDW CV 14.8 11.1 - 14.9 % LEX Comment:Testing performed by : [address] [address] RDW SD 42.9 35.7 - 48.1 fL LEX Comment:Testing performed by : [address], [address] NRBC abs 0.00 0.00 - 0.01 K/cumm [facility] Comment:Testing performed by : [facility], [address] [place] [address]., [address] Blood Venous blood specimen / Unknown 10/26/2024 2:04 PM CDT 10/26/2024 2:10 PM CDT Katie Mason MD LAB BLOOD ORDERABLES F inal Result Performing Organization Address City/[facility]/ZIP Co de Phone Number [address] [place] [address] * (ABNORMAL) Vitamin D 25 hydroxy (10/26/2024 2:04 PM CDT) Pathologist [facility] Vitamin D 25-OH 25.0(L) 30.0 - 80.0 ng/mL Blood 10/26/2024 2:04 PM CDT 10/26/2024 10:56 PM CDT Garrett Merrill DO LAB BLOOD ORDERABLES Reny l Result Performing Organization Address [facility] Co de Phone Number [address] [address] * CRP (cardiac risk) (10/26/2024 2:04 PM CDT) [facility] hsCRP 101.30 mg/L Comment: Interpretive data Adult [...] last revised on 2017. Testing performed by: [facility], [address] [place] [address]., [address] Blood 10/26/2024 2:04 PM CDT 10/26/2024 2:10 PM CDT us Garrett Merrill DO LAB BLOOD ORDERABLES Reny l Result Performing Organization Address [facility] Co de Phone Number [address] [address] * Phosphorus (10/26/2024 2:04 PM CDT) Pathologist [facility] Phosphorus, pl 2.5 2.3 - 4.5 mg/dL Comment:Testing performed by : [address] [address] Blood 10/26/2024 2:04 PM CDT 10/26/2024 2:10 PM CDT Katie Mason MD LAB BLOOD ORDERABLES F inal Result Performing Organization Address [facility] Co de Phone Number [address] [address] * (ABNORMAL) Magnesium (10/26/2024 2:04 PM CDT) [facility] Magnesium 1.1(L) 1.4 - 2.5 mg/dL Comment:Testing performed by : [address] [address] Blood 10/26/2024 2:04 PM CDT 10/26/2024 2:10 PM CDT Katie Mason MD LAB BLOOD ORDERABLES F inal Result Performing Organization Address [facility] Co de Phone Number [address] [address] * (ABNORMAL) Hemoglobin A1c (10/26/2024 2:04 PM CDT) [facility] Hgb A1C 6.7(H) 4.0 - 5.6 % Comment:Testing performed by : [address] [address] Estimated Average Glucose 146 mg/dL LEX Comment: The ADA recommends reporting an estimated Average Glucose (eAG) with all Hemoglobin A1c results using the equation derived from a study of 507 normal and diabetic adults. Minority populations were underrepresented and children were not included. (Diabetes Care 31:5579-0794, 2008). The eAG is not equivalent to a fasting glucose. Testing performed by: [address] [address] Blood 10/26/2024 2:04 PM CDT 10/26/2024 2:10 PM CDT us Garrett Merrill DO LAB BLOOD ORDERABLES Reny rodarte Result LEX [address] [facility] Department [place] [address] * (ABNORMAL) Comprehensive metabolic panel (10/26/2024 2:04 PM CDT) Sodium 139 135 - 145 mmol/L Comment:Testing performed by : [address] [address] Potassium, pl 4.3 3.3 - 4.9 mmol/L LEX Comment:Testing performed by : [address] [address] Chloride 105 97 - 110 mmol/L LEX Comment:Testing performed by : [address] [address] CO2 20(L) 22 - 32 mmol/L LEX Comment:Testing performed by : [address] [address] Anion gap 14 2 - 15 mmol/L LEX Comment:Testing performed by : [address] [address] BUN 16 6 - 25 mg/dL LEX Comment:Testing performed by : [address] [address] Creatinine 1.00 0.80 - 1.30 mg/dL LEX Comment:Testing performed by : [address] [address] Glucose 259(H) 70 - 199 mg/dL LEX [...] was last revised 2022. Testing performed by: [address] [address] Calcium 8.7 8.5 - 10.3 mg/dL LEX Comment:Testing performed by : [address] [address] Bilirubin, total 0.9 0.1 - 1.2 mg/dL LEX Comment:Testing performed by : [address] [address] Protein, pl 6.4(L) 6.5 - 8.5 g/dL LEX Comment:Testing performed by : [address] [address] Albumin 3.3(L) 3.5 - 5.0 g/dL LEX Comment:Testing performed by : [address] [address] Alk phos 105 40 - 130 Units/L LEX Comment:Testing performed by : [address] [address] ALT 6(L) 7 - 55 Units/L LEX Comment:Testing performed by : [address] [address] AST 9(L) 10 - 50 Units/L LEX Comment:Testing performed by : [address] [address] Blood Venous blood specimen / Unknown 10/26/2024 2:04 PM CDT 10/26/2024 2:10 PM CDT us Katie Mason MD LAB BLOOD ORDERABLES F inal Result LEX [address] [facility] Department [place] [address] * (ABNORMAL) Lipid panel (02/20/2024 10:15 PM DISPOSAL OPERATOR) Cholesterol 81 30 - 199 mg/dL [...] revised on 2017. Triglycerides 59 <=149 mg/dL [facility] Comment: Interpretive Data Ages < or [...] on 2017. HDL 25(L) >=40 mg/dL LEX [facility] Comment: Interpretive Data Ages < or [...] 2017. LDL, calculated 42 <=129 mg/dL LEX [facility] Comment: Interpretive Data Ages < or [...] revised on 2023. Non-HDL Cholesterol 56 mg/dL [facility] Comment: Interpretive Data Ages < or [...] last revised on 2017. Chol/HDL ratio 3 [facility] Blood 02/20/2024 10:1 5 PM DISPOSAL OPERATOR 02/20/2024 10:41 PM DISPOSAL OPERATOR us Brianda Araujo MD LAB BLOOD ORDERABLE S Final Result [facility] [place] [address] * COLONOSCOPY (08/25/2020 9:30 AM CDT) Anatomical Region Laterality Modality Other Narrative Procedure Note Sanjay Hameed MD - 08/25/2020 9:30 AM CDT ENDOSCOPY LAB Patient Name: Omega Ozuna Procedure Date: 08/25/2020 9:30 AM Date of : 1945 Admit Type: Outpatient Age: 74 Gender: Male Attending MD: Sanjay Hameed M.D. Room: [facility] ENDOSCOPY ROOM 05 Note Status: [...] The scope was passed under direct vision.The [id number] was introduced through the anusand advanced to [...] 10:51 PM CDT) Hep A IgM Nonreactive [facility] Comment: Interpretive Data If test is reported as GRAYZONE, new sample should be drawn in two weeks for testing. Current interpretive data was last revised on 2016. Hep B core IgM Nonreactive [facility] Comment: Interpretive Data If test is reported as GRAYZONE, new sample should be drawn for testing. Current interpretive data was last revised on 2016. Hep C Ab Nonreactive [facility] Comment: Interpretive Data Positive results should be confirmed by a molecular method. If positive, a second separately collected sample should be submitted for Hepatitis C Virus (HCV) RNA Detection and Quantitation by Real-Time Reverse Ammonia Distiller-PCR (RT-PCR). Current interpretive data was last revised on 2016. HepBsAg Nonreactive [facility] Blood specimen (specimen) 05/06/2016 10:51 PM CDT 05/07/2016 12:10 AM CDT us Nick Proctor LAB MICROBIOLOGY - GENERAL ORD ERABLES Edited Result - Final [facility] Department [place] [address] from Last 3 Months or Most Recently Relevant to Health Maintenance Insurance MEDICARE [facility] [place] [address] MEDICARE [facility] MEDICARE [facility] MEDICARE [facility] MEDICARE MEDICARE [facility] Advance Directives For more information, please contact: [phone] Documents on File Type Date Recorded Patient Emergency Care Tech Expl anation ADVANCE DIRECTIVE 05/30/2017 12:00 AM [...] 10:44 PM 03/02/2018 7:34 PM Care Teams Slime Plant Operator Helper Relationship Specialty Start Date End Date Tone Caicedo MD [address] [place] [address] PCP - General Internal Medicine 02/22/24 Tone Caicedo MD [address] [place] [address] 02/19/24
--- OUTSIDE RECORDS SUMMARY | 2024-11-14 08:28 | XMS_ITS | Encounter Summary ---
Author Organization [facility] Address [address] [place] [address] Phone Care Team Providers Care Field Support Technician Name Role Phone Tone Caicedo MD Primary Care Provider [phone] Unknown, Notinfile Primary Care Provider Unavail able Tone Caicedo MD Primary Care Provider [phone] Tone Caicedo MD Unavailable [phone] [facility] Unavailable Encounter Details Date Type [...] on file Legal Sex Male 1:17 AM DOCUMENTATION ENGINEER Gender Identity Not on file Sexual Orientation [...] IPS 02/26/18 08/25/2016 08/25/2016 02/26/2018 12:15 PM DOCUMENTATION ENGINEER COVID: Suspected 02/17/2024 02/17/2024 02/17/2024 12:52 PM DOCUMENTATION ENGINEER COVID: Suspected 02/21/2024 02/21/2024 02/21/2024 1:26 PM DOCUMENTATION ENGINEER C. difficile suspected 02/22/2024 02/22/202402/21 2:37 PM DOCUMENTATION ENGINEER COVID: Suspected 10/26/2024 10/26/2024 10/26/2024 3:26 PM CDT documented as of this encounter Care Teams Field Support Technician Relationship Specialty Start Date End Date Tone Caicedo MD [address] [facility] [address] [facility] [address] [place] [address] PCP - General 05/04/16 02/18/24 Unknown, Notinfile PCP - General 02/19/24 02/21/24 Tone Caicedo MD [address] [facility] [address] [facility] [address] [place] [address] PCP - General Internal Medicine 02/22/24 Tone Caicedo MD [address] [facility] [address] [facility] [address] [place] [address] 02/19/24 Star Tam, [facility] SHOP Outpatient Team Truck Driver 02/26/18 04/30/18 documented as of this encounter
--- OUTSIDE RECORDS SUMMARY | 2024-11-14 08:28 | XMS_ITS | Encounter Summary ---
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 Gender Identity Not on file Sexual Orientation Not on file documented as of this encounter Plan of Treatment Not on file documented as of this encounter Procedures Procedure Name Priority Date/Time Associated Diagnosis Comments VASCULAR LABORATORY REPORT 03/22/2017 8:26 AM [employer] IN[employer] INSPECTOR documented in this encounter Results * VASCULAR LABORATORY REPORT (03/22/2017 8:26 AM [employer] INSTRUM[employer] INSPECTOR) Anatomical Region Laterality Modality Ultrasound us Provider Scanning CV VASCULAR PROCEDURES Final R esult documented in this encounter Visit Diagnoses Not on filedocumented in this encounter Additional Health Concerns Infection Onset Date Last Indicated Resolved Time C. difficile Comment:Germ watcher auto flagging. Specimen: STOOL Site: No diarrhea per pt RN. Natarajan IPS 02/26/18 08/25/2016 08/25/2016 02/26/2018 12:15 PM [employer] IN[employer] INSPECTOR COVID: Suspected 02/17/2024 02/17/2024 02/17/2024 12:52 PM [employer] INSPECTOR COVID: Suspected 02/21/2024 02/21/2024 02/21/2024 1:26 PM [employer] IN[employer] INSPECTOR C. difficile suspected 02/22/2024 02/22/202402/21 2:37 PM [employer] IN[employer] INSPECTOR COVID: Suspected 10/26/2024 10/26/2024 10/26/2024 3:26 PM CDT documented as of this encounter Care Teams Gas Station Manager Relationship Specialty Start Date End Date Tone Caicedo MD [address] [facility] [address] [facility] [address] [place] [address] PCP - General 05/04/16 02/18/24 Unknown, Notinfile PCP - General 02/19/24 02/21/24 Tone Caicedo MD [address] [facility] [address] [facility] [address] [place] [address] PCP - General Internal Medicine 02/22/24 Tone Caicedo MD [address] [facility] [address] [facility] [address] [place] [address] 02/19/24 Star Tam, [facility] SHOP Outpatient Gate Cutter 02/26/18 04/30/18 documented as of this encounter
== END 2024-11-14 08:19 | disposition home or self-care (01) ==
PROVIDERS: PCP Internal Medicine; Visit Provider Internal Medicine
DX: J18.9 Pneumonia, unspecified organism (principal)
CPT/HCPCS: 71046